=== PATIENT | female | born 1935 | race Caucasian/White ===

== ENCOUNTER → 2016-06-23 | Outpatient (CLI) | payer BC, OTHER ==
[~2016-06-23] MED LIST: ASPCH81; CEPH500C PO; LSN25 PO; NVLGI7030 SC; TRAM-10 PO
[2016-06-23 17:22] LABS: HEMATOCRIT 38.6 % (37-47); MEAN CORPUSCULAR HEMOGLOBIN 30.2 pg (25-34); MEAN CORPUSCULAR HGB CONC 33.2 g/dl (32-36); MEAN PLATELET VOLUME 10.2 fL (7.4-10.4); PLATELET COUNT 195 K/uL (130-400); RED BLOOD COUNT 4.24 M/uL (4.2-5.4); WHITE BLOOD COUNT 5.49 K/uL (4.8-10.8)
[2016-06-23 18:08] LABS: ALT/SGPT 15 U/L (12-78); AST/SGOT 9 U/L (15-37); BLOOD UREA NITROGEN 27 mg/dl (7-18); BUN/CREATININE RATIO 22.9 (10-20); CARBON DIOXIDE 30 mmol/L (21-32); CHLORIDE 105 mmol/L (98-107); CHOLESTEROL 174 mg/dl (0-200); CHOLESTEROL/HDL RATIO 2.9; GLUCOSE 209 mg/dl (70-99); HDL CHOLESTEROL 60 mg/dl; POTASSIUM 4.6 mmol/L (3.5-5.1); SODIUM 142 mmol/L (136-145)
[2016-06-23 18:09] LABS: ALB/GLOB RATIO 0.9 (0.9-2); ALKALINE PHOSPHATASE 80 U/L (45-117); LDL CHOLESTEROL CALCULATED 92 mg/dl; TRIGLYCERIDES 111 mg/dl (0-150); VERY LOW DENSITY LIPOPROT CALC 22 mg/dl
[2016-06-24 06:38] LABS: ESTIMATED AVERAGE GLUCOSE 151 mg/dl; HA1C FLAG Normal (Normal)
== END | disposition home or self-care (01) ==
LOC: C.LABBFT 15:44
PROVIDERS: ATTEND Internal Medicine
DX: E11.42 Type 2 diabetes mellitus with diabetic polyneuropathy (principal)

== ENCOUNTER → 2017-01-20 | Outpatient (CLI) | payer OTHER ==
[2017-01-20 15:39] LABS: BASO % 0.2 %; BASO ABS # 0.01 K/uL (0-0.2); COMPLETE YES; EOS % 1.4 %; HEMATOCRIT 38.2 % (37-47); IG% 0.4 %; LYMPH % 13.5 %; LYMPH ABS # 0.76 K/uL (1.2-3.4); MEAN CELL VOLUME 92.9 fL (80-100); MEAN CORPUSCULAR HEMOGLOBIN 31.4 pg (25-34); MEAN CORPUSCULAR HGB CONC 33.8 g/dl (32-36); MEAN PLATELET VOLUME 10.4 fL (7.4-10.4); MONO % 9.6 %; NEUT % 74.9 %; PLATELET COUNT 153 K/uL (130-400); RED BLOOD COUNT 4.11 M/uL (4.2-5.4); WHITE BLOOD COUNT 5.64 K/uL (4.8-10.8)
[2017-01-20 15:53] LABS: ALT/SGPT 15 U/L (12-78); BLOOD UREA NITROGEN 39 mg/dl (7-18); BUN/CREATININE RATIO 27.5 (10-20); CALCIUM 9.5 mg/dl (8.5-10.1); CARBON DIOXIDE 30 mmol/L (21-32); CHLORIDE 100 mmol/L (98-107); CHOLESTEROL 163 mg/dl (0-200); GLUCOSE 335 mg/dl (70-99); POTASSIUM 4.8 mmol/L (3.5-5.1); SODIUM 135 mmol/L (136-145)
[2017-01-20 15:55] LABS: ALB/GLOB RATIO 0.9 (0.9-2); AST/SGOT 11 U/L (15-37); TRIGLYCERIDES 122 mg/dl (0-150); VERY LOW DENSITY LIPOPROT CALC 24 mg/dl
[2017-01-20 16:03] LABS: ALKALINE PHOSPHATASE 69 U/L (45-117); BETA-HYDROXYBUTYRATE 0.88 mg/dL (0.2-2.81); CHOLESTEROL/HDL RATIO 2.3; HDL CHOLESTEROL 72 mg/dl; LDL CHOLESTEROL CALCULATED 67 mg/dl
[2017-01-21 06:14] LABS: ESTIMATED AVERAGE GLUCOSE 154 mg/dl; HA1C FLAG Normal (Normal)
== END | disposition home or self-care (01) ==
LOC: C.LAB1850 14:39
PROVIDERS: ATTEND Internal Medicine
DX: E11.42 Type 2 diabetes mellitus with diabetic polyneuropathy (principal)

== ENCOUNTER → 2017-07-10 | Outpatient (CLI) | payer OTHER ==
[2017-07-10 17:01] LABS: ALBUMIN 3.2 gm/dl (3.4-5.0); ALT/SGPT 15 U/L (12-78); AST/SGOT 12 U/L (15-37); BLOOD UREA NITROGEN 32 mg/dl (7-18); CALCIUM 9.6 mg/dl (8.5-10.1); CARBON DIOXIDE 29 mmol/L (21-32); CREATININE 1.32 mg/dl (0.60-1.20); GLUCOSE 142 mg/dl (70-99); POTASSIUM 5.4 mmol/L (3.5-5.1); SODIUM 140 mmol/L (136-145)
[2017-07-10 17:12] LABS: ALKALINE PHOSPHATASE 62 U/L (45-117); TOTAL PROTEIN 6.9 gm/dl (6.4-8.2)
[2017-07-11 06:56] LABS: HEMOGLOBIN A1C 7.9 % (4.5-5.6)
== END | disposition home or self-care (01) ==
LOC: C.LABBFT 12:26
PROVIDERS: ATTEND Internal Medicine
DX: E11.42 Type 2 diabetes mellitus with diabetic polyneuropathy (principal)

== ENCOUNTER → 2017-12-11 | Outpatient (CLI) | payer OTHER ==
[2017-12-11 17:46] LABS: BASO % 0.3 %; BASO ABS # 0.02 K/uL (0-0.2); EOS % 3.1 %; HEMATOCRIT 39.5 % (37-47); HEMOGLOBIN 12.6 g/dL (12.0-16.0); IG# 0.02 K/uL (0.00-0.02); LYMPH % 12.1 %; LYMPH ABS # 0.77 K/uL (1.2-3.4); MEAN CELL VOLUME 93.4 fL (80-100); MEAN CORPUSCULAR HEMOGLOBIN 29.8 pg (25-34); MEAN CORPUSCULAR HGB CONC 31.9 g/dl (32-36); MONO % 7.7 %; MONO ABS # 0.49 K/uL (0.11-0.59); NEUT % 76.5 %; NEUT ABS # 4.86 K/uL (1.4-6.5); PLATELET COUNT 181 K/uL (130-400); RED CELL DISTRIBUTION WIDTH CV 13.6 % (11.5-14.5); RED CELL DISTRIBUTION WIDTH SD 46.3 fL (36.4-46.3); WHITE BLOOD COUNT 6.36 K/uL (4.8-10.8)
[2017-12-11 18:07] LABS: ALBUMIN 3.2 gm/dl (3.4-5.0); ALKALINE PHOSPHATASE 71 U/L (45-117); ALT/SGPT 15 U/L (12-78); AST/SGOT 11 U/L (15-37); BLOOD UREA NITROGEN 29 mg/dl (7-18); CALCIUM 9.2 mg/dl (8.5-10.1); CARBON DIOXIDE 29 mmol/L (21-32); CREATININE 1.41 mg/dl (0.60-1.20); GLUCOSE 151 mg/dl (70-99); POTASSIUM 4.9 mmol/L (3.5-5.1); SODIUM 141 mmol/L (136-145); TOTAL PROTEIN 7.2 gm/dl (6.4-8.2)
[2017-12-12 07:45] LABS: HEMOGLOBIN A1C 7.3 % (4.5-5.6)
== END | disposition home or self-care (01) ==
LOC: C.LABBFT 12:04
PROVIDERS: ATTEND Nurse Practitioner
DX: E10.49 Type 1 diabetes mellitus with other diabetic neurological complication (principal); R60.9 Edema, unspecified

== ENCOUNTER 2019-02-28 21:09 | Observation (INO) ==
[2019-02-28] MEDS ORDERED: SODIUM CHLORIDE 0.9% 500 ML IV SCH (22:00)
[2019-02-28 22:04] LABS: Basophils # (auto) 0.01 K/uL (0-0.2); Basophils % (auto) 0.1 %; Eosinophils # (auto) 0.01 K/uL (0-0.5); Eosinophils % (auto) 0.1 %; Hematocrit (blood only) 35.8 % (37-47); Hemoglobin 12.1 g/dL (12.0-16.0); Immature Granulocytes # (auto) 0.02 K/uL (0.00-0.02); Immature Granulocytes % (auto) 0.2 %; Mean Corpuscular Hgb Conc 33.8 g/dL (32-36); Mean Corpuscular Volume 88.8 fL (80-100); Mean Platelet Volume 11.4 fL (7.4-10.4); Monocytes # (auto) 0.69 K/uL (0.11-0.59); Monocytes % (auto) 8.3 %; Neutrophils # (auto) 7.06 K/uL (1.4-6.5); Neutrophils % (auto) 85.3 %; Platelet Count 147 K/uL (130-400); RDW Coefficient of Variation 13.6 % (11.5-14.5); RDW Standard Deviation 44.1 fL (36.4-46.3); Red Blood Count 4.03 M/uL (4.2-5.4); White Blood Count 8.29 K/uL (4.8-10.8)
--- NOTE | 2019-02-28 22:07 | XRay Report ---
XR chest 1V portable CLINICAL HISTORY: 83 years-old Female presenting with weakness. TECHNIQUE: Portable upright AP view of the chest was obtained. COMPARISON: 08/11/2018. FINDINGS: Atherosclerosis of the aortic arch. Cardiac silhouette enlarged. Mildly low lung volumes. Persistent nodular opacity at the right lung base. No new focal opacity. No large effusion or pneumothorax. Defo rmity of the left humerus on a chronic basis is posttraumatic and possibly also secondarily degenerat panda. Posttraumatic deformity with internal fixation of the right humerus. Upper abdomen normal. IMPRESSION: 1. Cardiomegaly. 2. Persistent nodular opacity at the right lung base. Follow-up PA and lateral views recommended as on prior exam. 3. Mildly low lung volumes. No other convincing evidence of acute cardiopulmonary disease. Electronically signed by: Bassam Benedict M.D. 02/28/2019 10:06 PM
--- NOTE | 2019-02-28 22:11 | Emergency Department Note ---
ED Visit Note I have seen and examined this patient with Laura Roque and generally agree with the treatment plan as discussed. .
[2019-02-28 22:18] LABS: iSTAT Creatinine 2.1 mg/dl (0.6-1.3); iSTAT Hemoglobin 13.3 g/dl (12.0-16.0); iSTAT Ionized Calcium 1.17 mmol/l (1.12-1.32); iSTAT Potassium 4.4 mEq/L (3.3-5.0)
[2019-02-28 22:21] LABS: Alanine Aminotransferase 16 U/L (12-78); Albumin Level 3.2 gm/dl (3.4-5.0); Aspartate Aminotransferase 14 U/L (15-37); BUN Creatinine Ratio 19.1 (10-20); Blood Urea Nitrogen 41 mg/dl (7-18); Calcium 9.4 mg/dl (8.5-10.1); Carbon Dioxide 28 mmol/L (21-32); Chloride 94 mmol/L (98-107); Creatinine Clr Calc Pharmacy 20.4 ml/min; Est GFR (African American) 23.6; Est GFR (Non-African American) 20.4; Glucose 163 mg/dl (70-99); Magnesium 1.7 mg/dl (1.8-2.4); Potassium 4.3 mmol/L (3.5-5.1); Sodium 130 mmol/L (136-145)
[2019-02-28 22:32] LABS: Albumin Globulin Ratio 0.8 (0.9-2); Alkaline Phosphatase 64 U/L (45-117); Globulin 4.1 gm/dl (2.5-4.0); Total Protein 7.3 gm/dl (6.4-8.2); Troponin I < 0.015 ng/ml (0-0.045)
--- NOTE | 2019-02-28 22:41 | CT Scan Report ---
CT head/brain wo con CLINICAL HISTORY: 83 years-old Female presenting with fall, head/R face injury on ASA. TECHNIQUE: Multidetector CT imaging of the head was performed without the use of intravenous contrast . IV contrast: None. One or more dose lowering techniques were used consistent with the principles of ALARA (as low as reasonably achievable), including automatic exposure control, mA or kV adjustment t o individual patient size, and/or use of iterative reconstruction. COMPARISON: 08/11/2018. CT DOSE (mGy.cm): The estimated cumulative dose is 2102.16. 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 Proportional ventricular and sulcal prominence, likely age-related parenchymal volume loss. No hemorr orlin. Periventricular and subcortical white matter hypoattenuation, nonspecific but likely indicative of chronic small vessel ischemic change. No acute territorial infarct. No mass effect or midline javon ft. No extra-axial fluid collection. Paranasal sinuses and mastoid air cells clear. Calvarium intact. IMPRESSION: 1. Chronic small vessel ischemic change. No acute intracranial abnormality. Electronically signed by: Bassam Benedict M.D. 02/28/2019 10:40 PM
--- NOTE | 2019-02-28 22:48 | CT Scan Report ---
CT cervical spine wo con CLINICAL HISTORY: 83 years-old Female presenting with fall, head/R face injury on ASA. TECHNIQUE: Multidetector CT of the cervical spine was performed without the use of intravenous contra st. IV contrast: None. One or more dose lowering techniques were used consistent with the principles of ALARA (as low as reasonably achievable), including automatic exposure control, mA or kV adjustment to individual patient size, and/or use of iterative reconstruction. COMPARISON: None. CT DOSE (mGy.cm): The estimated cumulative dose is 2102.16. 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 The extent of degenerative change throughout the cervical spine X assessment difficult. Heterogeneity of bone marrow with heterogeneous sclerosis may relate to degenerative change or an underlying marro w replacement process. There is osseous fusion across the C2-3 level as well as involving osseous fus ion across the posterior elements of these levels. Overall lordosis is preserved. Slight anterolisthe sis of C3 on C4 and retrolisthesis of C4 on C5, most likely degenerative in etiology. Multilevel inte rvertebral disc height loss to varying degrees. Osseous spinal canal narrowing at C4 as result of ret rolisthesis. Varying degrees of osseous neural foraminal narrowing. Allowing for the degree of change , no acute osseous injury is apparent. Visualized portion of the skull base intact. IMPRESSION: 1. Extensive multilevel degenerative changes and bone marrow changes. Presumably bone marrow changes are degenerative in etiology or, less likely, related to a marrow replacement process. The degree of degenerative change makes assessment for acute osseous injury more limited. 2. Allowing for this, no evidence of acute osseous injury of the cervical spine. Electronically signed by: Bassam Benedict M.D. 02/28/2019 10:47 PM
--- NOTE | 2019-02-28 22:54 | CT Scan Report ---
CT abd pelvis wo con CLINICAL HISTORY: 83 years-old Female presenting with generalized abdominal pain, fall with right-bev ed facial injury, pain. TECHNIQUE: Multidetector CT of the abdomen and pelvis was performed without the use of intravenous co ntrast. IV contrast: None. One or more dose lowering techniques were used consistent with the princip les of PENNY (as low as reasonably achievable), including automatic exposure control, mA or kV adjust ment to individual patient size, and/or use of iterative reconstruction. COMPARISON: None. CT DOSE (mGy.cm): The estimated cumulative dose is 2102.16 mGy.cm. 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 Lung bases: Multichamber enlargement of the heart. Coronary artery calcification. No pericardial or p leural effusion. Minimal dependent changes likely atelectasis. Liver: Normal morphology. Normal density. Biliary: No gross biliary ductal dilatation allowing for noncontrast technique. Gallstones at the gal lbladder fundus. The gallbladder may be physiologically distended. Wall thickening may be present. Tr timothy fluid at the gallbladder fundus. It is difficult to tell if this is emanating from the gallbladde r or is merely adjacent to the gallbladder. Pancreas: Severe parenchymal atrophy. Spleen: Normal noncontrast appearance. Adrenal glands: Nonspecific thickening of the adrenal glands and Kidneys and ureters: Normal noncontrast appearance. No nephrolithiasis. No hydronephrosis. Normal ure ters. Bladder: Normal noncontrast appearance. Pelvic organs: Normal noncontrast appearance. Bowel: Diverticulosis of the mid sigmoid colon without wall thickening or pericolonic inflammatory ch nhung. A significant portion of the transverse colon is contained within the large ventral hernia. The appendix is normal. No bowel obstruction. Large predominantly sliding type hiatal hernia. Peritoneal cavity: Trace free fluid in the right paracolic gutter. No free intraperitoneal gas or ext raluminal gas. No pneumatosis. Lymph nodes: No gross lymphadenopathy allowing for noncontrast technique. Vasculature: Atherosclerosis of the normal caliber abdominal aorta. Abdominal wall: Large ventral hernia in the region of the umbilicus with a relatively narrow neck sara suring 4.7 cm in comparison to the hernia sac diameter, which measures 14.7 cm. No infiltration of th e hernia sac. Musculoskeletal: Degenerative changes of the spine. Partially visualized internal fixation of the rig ht humerus. Posttraumatic deformities in the pelvis. Moderate compression deformity at T11, which is age indeterminate. IMPRESSION: 1. Large ventral hernia in the umbilical/periumbilical region containing a significant portion of tr ansverse colon. No bowel obstruction or evidence of strangulation. 2. Distended gallbladder containing gallstones with adjacent pericholecystic fluid. Gallbladder wall thickening cannot be excluded. Right upper quadrant ultrasound is recommended for further assessment as these findings raise concern for cholecystitis. 3. Age-indeterminate compression deformity of T11. Correlate with point tenderness. The report will be called/faxed according to standard departmental protocol. Electronically signed by: Bassam Benedict M.D. 02/28/2019 10:53 PM
--- NOTE | 2019-02-28 22:56 | CT Scan Report ---
CT facial bones wo con CLINICAL HISTORY: 83 years-old Female presenting with fall, head/R face injury on ASA. TECHNIQUE: Multidetector CT of the face was performed without the use of intravenous contrast. IV con trast: None. One or more dose lowering techniques were used consistent with the principles of ALARA ( as low as reasonably achievable), including automatic exposure control, mA or kV adjustment to indivi dual patient size, and/or use of iterative reconstruction. COMPARISON: None. CT DOSE (mGy.cm): The estimated cumulative dose is 2102.16. 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 The patient is edentulous. Superficial soft tissues of the face do not demonstrate asymmetry or focal swelling. No superficial soft tissue hematoma. Rincon lenses are absent from the globes. Orbits othe rwise normal. Age-related parenchymal volume loss of the brain. Paranasal sinuses with mild polypoid mucosal thickening in the inferior left maxillary sinus but are otherwise clear. Zygomatic processes intact. Temporomandibular joints and mandible intact. Upper cervical spine intact. IMPRESSION: 1. No acute osseous injury of the face. Electronically signed by: Bassam Benedict M.D. 02/28/2019 10:55 PM
[2019-02-28 23:56] LABS: Appearance Urine Clear (Clear); Blood Urine Negative (Negative); Color Urine Dark Yellow; Glucose Urine UA Negative (Negative); Ketones Urine Trace (Negative); Leukocyte Esterase Urine Negative (Negative); Nitrite Urine Negative (Negative); Protein Urine Negative (Negative); Specific Gravity Urine 1.023 (1.000-1.030); Urobilinogen Urine Negative (Negative)
[2019-03-01] MEDS ORDERED: PIPERACILLIN/TAZOBACTAM 4.5 GM/120 ML BAG IV ONE (00:01)
[2019-03-01] MEDS ORDERED: PIPERACILL/TAZOBAC CONSULT ACTIVE PRN ×2 (00:01→03:09)
[2019-03-01 00:16] LABS: Bilirubin Urine 1+ (Negative)
[2019-03-01 00:17] LABS: Ictotest Urine Positive (Negative)
--- NOTE | 2019-03-01 00:44 | Surgery Consultation ---
Date of Consultation March 01, 2019 Assessment & Plan (1) Acute cholecystitis: Without taking into consideration the large hernia-laparoscopic cholecystectomy in this situation with the findings on CAT scan Will be very difficult, may lead to open operation-then may need to consider attempting to repair the hernia. Cholecystostomy tube may be best in this situation. The ER has spoken with the doctors at [facility] and they are willing to take the patient but have other patients front of her. I feel transfer to a tertiary care center is in the best interest of this patient I will set to go to [facility] bed is available History of Present Illness History of Present Illness Asked to see the patient in the emergency room with acute cholecystitis She was brought to the emergency room after falling at home sustaining a facial injury which is apparently a contusion She has had recent nausea and vomiting some abdominal pain-CAT scan and ultrasound showed dilated thickened gallbladder With large stone and likely pericholecystic fluid She also has a very large hernia with colon within the hernia She has a history of mild dementia 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 Allergies Allergy/AdvReac Type Severity Reaction Status Date / Time No Known Allergies Allergy Unknown Verified 02/28/19 23:53 Home Medications Home Medications Medication Instructions Recorded Confirmed Type aspirin 81 mg PO QAM 08/11/18 02/28/19 History cholecalciferol (vitamin D3) 2,000 units PO QAM 08/11/18 02/28/19 History [Vitamin D3] insulin human U-100 NPH-regulr 1 sliding scale dose SUBCUT 11/22/18 02/28/19 Rx 70-30 mix 100 unit/mL subcutaneous USEASDIRECTD #40 ml susp omeprazole 20 mg capsule,delayed 20 mg PO QAM #90 cap 11/22/18 02/28/19 Rx release lorazepam 0.5 mg tablet 0.5 mg PO DAILY #30 tab 12/03/18 02/28/19 Rx alendronate 70 mg tablet 70 mg PO .COMPLEX #4 tab 01/19/19 02/28/19 Rx donepezil 5 mg tablet 5 mg PO HS #30 tab 02/07/19 02/28/19 Rx calcium carbonate [Calcium 600] 600 mg PO QAM 02/28/19 02/28/19 History Patient History Social History Preferred Language: [place]al[place] Current Living Situation: Family Feels Safe at Home: Yes Smoking Status: Former smoker Review of Systems Review of Systems: All systems reviewed & are unremarkable except as noted in HPI & below Physical Exam Physical Exam: Patient has a right periorbital contusion, she is awake and alert , her vital signs are stable She has a large umbilical hernia with chronic skin changes overlying the hernia and no ulceration She does have right upper quadrant tenderness to deep palpation Results & Data Vital Signs (Past 12 Hours) Vital Signs Temp Pulse Resp BP Pulse Ox 03/01/19 00:30 64 27 H 03/01/19 00:01 64 34 H 125/50 L 03/01/19 00:00 64 32 H 02/28/19 23:43 27 H 02/28/19 23:00 72 25 H 131/78 94 02/28/19 21:11 36.6 C 75 18 112/68 94 I did review her CAT scan PG Care Time/CCT Total # of Minutes Spent Total Time Spent with Patient: Total time spent is greater than 50% in coordination of care (as documented) at patient's floor/unit and/or counseling patient:
--- NOTE | 2019-03-01 02:00 | History & Physical Report ---
Date of Service March 01, 2019 Assessment & Plan (1) Acute cholecystitis: Acute cholecystitis with large ventral hernia- Concern by general surgery consult for possible need for a laparoscopic cholecystectomy to be converted to open cholecystectomy and need for repair of ventral hernia. For these reasons, patient has been accepted in transfer to [facility] in [place], however, no beds are currently available. Patient will be admitted to [facility] in the interim, placed on Zosyn 4.5 g IV every 12 hours, Zofran 4 mg IV every 6 hours as needed, famotidine 20 mg IV every 12 hours. Hold aspirin 81 mg every morning. NPO except ice chips. Present on Admission?: Yes (2) Ventral hernia: See above Present on Admission?: Yes (3) Acute kidney injury superimposed on CKD: Creatinine 2.17 upon admission, with range 1.32-1.54. Magnesium level of 1.7 will be repleted with IV Rehydrate with normal saline at 80 mls per hour, and follow serial BMP and magnesium levels Present on Admission?: Yes (4) Contusion of face: Facial contusion and ecchymosis around right eye. CT of head and face without significant structural injury. Present on Admission?: Yes (5) Insulin-requiring or dependent type II diabetes mellitus: Insulin requiring diabetes mellitus type 2/diabetic neuropathy/diabetic retinopathy- Hold 70/30 mix sliding scale dosing as outpatient. Place on Accu-Cheks every 6 hours with NovoLog coverage. Check hemoglobin A1c Present on Admission?: Yes (6) Type 2 diabetes mellitus with diabetic neuropathy: See above Present on Admission?: Yes (7) Type 2 diabetes mellitus with retinopathy: See above Present on Admission?: Yes (8) GERD (gastroesophageal reflux disease): Change omeprazole to famotidine 20 mg IV every 12 hours. Present on Admission?: Yes (9) Dementia: Hold donepezil 5 mg p.o. at bedtime, while NPO Present on Admission?: Yes (10) Anxiety: Change lorazepam from 0.5 mg p.o. daily as needed to IV twice daily as needed. Present on Admission?: Yes (11) Closed fracture of T11 vertebra: Noted as age-indeterminate on CT, however, patient with no point tenderness. Present symptoms may be masked by more significant abdominal symptoms, so we will closely follow clinical examination. Present on Admission?: Yes (12) Osteoporosis: On Fosamax in the outpatient setting. Present on Admission?: Yes History of Present Illness Chief Complaint: The patient is brought to the emergency department with complaint of persistent abdominal pain with nausea and vomiting over the past 2 days. Primary Care Provider: Jair Wren MD The patient is an 83-year-old female with a past medical history including insulin requiring diabetes mellitus, osteoporosis, dementia, GERD and anxiety, who presents to the emergency department with 2 days of worsening abdominal pain, nausea and vomiting. She is also had progressive weakness, and did have a fall today, without any associated injury. Her oral intake has been decreased during this time as well. Allergies Allergy/AdvReac Type Severity Reaction Status Date / Time No Known Allergies Allergy Unknown Verified 02/28/19 23:53 Home Medications Home Medications Medication Instructions Recorded Confirmed Type aspirin 81 mg PO QAM 08/11/18 02/28/19 History cholecalciferol (vitamin D3) 2,000 units PO QAM 08/11/18 02/28/19 History [Vitamin D3] insulin human U-100 NPH-regulr 1 sliding scale dose SUBCUT 11/22/18 02/28/19 Rx 70-30 mix 100 unit/mL subcutaneous USEASDIRECTD #40 ml susp omeprazole 20 mg capsule,delayed 20 mg PO QAM #90 cap 11/22/18 02/28/19 Rx release lorazepam 0.5 mg tablet 0.5 mg PO DAILY #30 tab 12/03/18 02/28/19 Rx alendronate 70 mg tablet 70 mg PO .COMPLEX #4 tab 01/19/19 02/28/19 Rx donepezil 5 mg tablet 5 mg PO HS #30 tab 02/07/19 02/28/19 Rx calcium carbonate [Calcium 600] 600 mg PO QAM 02/28/19 02/28/19 History Past Med/Surg History Medical History Diabetes (Chronic) Dementia (Chronic) Social History Preferred Language: Macedonian 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: No Beliefs That Will Affect Care: None Current Living Situation: Family Current Living Situation Comment: son Feels Safe at Home: Yes Safety Concerns: Feels Safe At This Time Smoking Status: Never smoker Tobacco Type: cigarettes ; Hx Alcohol Use: No Hx Substance Use: No Review of Systems Review of Systems: The patient denies chest pain, palpitations, shortness of breath, dyspnea on exertion, cough, lower extremity swelling, sore throat, fevers, chills, sweats, blood in urine or stool, dysuria, urinary frequency or urgency, lightheadedness, dizziness, headache, loss of consciousness, rash, abnormal bruising or bleeding, imbalance, focal or weakness, numbness or tingling in arms or legs, generalized arthralgias or myalgias, back or neck pain, or night sweats. The review of systems is otherwise negative other than for that already noted above, and at least 10 systems have been reviewed. Physical Exam Physical Exam: The patient is awake, alert and oriented 3, ecchymosis around right eye, lying in bed and in intermittent acute distress secondary to abdominal pain. HEENT--PERRL, EOMI, mucous membranes and oropharynx dry. Neck--supple. No JVD. No bruits. Thyroid normal, trachea midline, no adenopathy. Heart--normal S1 and S2. No murmurs, rubs or gallops. Lungs--clear bilaterally, no respiratory distress, no accessory muscle use. Abdomen--normal bowel sounds and soft. Tender right upper quadrant and epigastrium. Nondistended. Extremities--no cyanosis or clubbing. No edema. There are good distal pulses b/l. Dermatologic--as noted above. Neurologic--cranial nerves II through XII grossly intact. Rheumatologic-limited exam. Psychiatric--normal affect. Results & Data Vital Signs (Past 12 Hours) Vital Signs Temp Pulse Resp BP Pulse Ox 03/01/19 00:30 64 27 H 03/01/19 00:01 64 34 H 125/50 L 03/01/19 00:00 64 32 H 02/28/19 23:43 27 H 02/28/19 23:00 72 25 H 131/78 94 02/28/19 21:11 97.9 F 75 18 112/68 94 Laboratory Results Laboratory Results WBC 8.29 K/uL (4.8-10.8) 02/28/19 21:53 RBC 4.03 M/uL (4.2-5.4) L 02/28/19 21:53 Hgb 12.1 g/dL (12.0-16.0) 02/28/19 21:53 POC Hgb 13.3 g/dl (12.0-16.0) 02/28/19 22:01 Hct 35.8 % (37-47) L 02/28/19 21:53 POC Hct 39 % (37-47) 02/28/19 22:01 MCV 88.8 fL (80-100) 02/28/19 21:53 MCH 30.0 pg (25-34) 02/28/19 21:53 MCHC 33.8 g/dL (32-36) 02/28/19 21:53 RDW Std Deviation 44.1 fL (36.4-46.3) 02/28/19 21:53 RDW Coeff of Luis E 13.6 % (11.5-14.5) 02/28/19 21:53 Plt Count 147 K/uL (130-400) 02/28/19 21:53 MPV 11.4 fL (7.4-10.4) H 02/28/19 21:53 Immature Gran % (Auto) 0.2 % 02/28/19 21:53 Neut % (Auto) 85.3 % 02/28/19 21:53 Lymph % (Auto) 6.0 % 02/28/19 21:53 Hardin % (Auto) 8.3 % 02/28/19 21:53 Eos % (Auto) 0.1 % 02/28/19 21:53 Baso % (Auto) 0.1 % 02/28/19 21:53 Immature Gran # (Auto) 0.02 K/uL (0.00-0.02) 02/28/19 21:53 Neut # (Auto) 7.06 K/uL (1.4-6.5) H 02/28/19 21:53 Lymph # (Auto) 0.50 K/uL (1.2-3.4) L 02/28/19 21:53 Hardin # (Auto) 0.69 K/uL (0.11-0.59) H 02/28/19 21:53 Eos # (Auto) 0.01 K/uL (0-0.5) 02/28/19 21:53 Baso # (Auto) 0.01 K/uL (0-0.2) 02/28/19 21:53 POC Sodium 130 mEq/L (135-144) L 02/28/19 22:01 Sodium 130 mmol/L (136-145) L 02/28/19 21:53 POC Potassium 4.4 mEq/L (3.3-5.0) 02/28/19 22:01 Potassium 4.3 mmol/L (3.5-5.1) 02/28/19 21:53 POC Chloride 93 mEq/L (101-112) L 02/28/19 22:01 Chloride 94 mmol/L (98-107) L 02/28/19 21:53 Carbon Dioxide 28 mmol/L (21-32) 02/28/19 21:53 POC Total CO2 28 mEq/l (24-31) 02/28/19 22:01 Anion Gap 7.0 (3-11) 02/28/19 21:53 POC Anion Gap 15.0 mmol/L (16-25) L 02/28/19 22:01 POC BUN 39 mg/dl (7-18) H 02/28/19 22:01 BUN 41 mg/dl (7-18) H 02/28/19 21:53 Creatinine 2.17 mg/dl (0.6-1.2) H 02/28/19 21:53 POC Creatinine 2.1 mg/dl (0.6-1.3) H 02/28/19 22:01 Est Cr Clr Drug Dosing 20.4 ml/min 02/28/19 21:53 Est GFR ( Amer) 23.6 02/28/19 21:53 Est GFR (Non-Af Amer) 20.4 02/28/19 21:53 BUN/Creatinine Ratio 19.1 (10-20) 02/28/19 21:53 Glucose 163 mg/dl (70-99) H 02/28/19 21:53 POC Glucose 133 (70-99) H 03/01/19 05:15 POC Glucose (other) 162 mg/dl (70-99) H 02/28/19 22:01 Calcium 9.4 mg/dl (8.5-10.1) 02/28/19 21:53 POC Ioniz Calcium Maylin 1.17 mmol/l (1.12-1.32) 02/28/19 22:01 Magnesium 1.7 mg/dl (1.8-2.4) L 02/28/19 21:53 Total Bilirubin 1.0 mg/dl (0.2-1) 02/28/19 21:53 AST 14 U/L (15-37) L 02/28/19 21:53 ALT 16 U/L (12-78) 02/28/19 21:53 Alkaline Phosphatase 64 U/L (45-117) 02/28/19 21:53 Troponin I < 0.015 ng/ml (0-0.045) 02/28/19 21:53 Total Protein 7.3 gm/dl (6.4-8.2) 02/28/19 21:53 Albumin 3.2 gm/dl (3.4-5.0) L 02/28/19 21:53 Globulin 4.1 gm/dl (2.5-4.0) H 02/28/19 21:53 Albumin/Globulin Ratio 0.8 (0.9-2) L 02/28/19 21:53 TSH 3.530 uIu/ml (0.300-4.500) 02/28/19 21:53 Urine Color Dark Yellow 02/28/19 22:50 Urine Appearance Clear (Clear) 02/28/19 22:50 Urine pH 5.0 (4.5-7.5) 02/28/19 22:50 Ur Specific [place] 1.023 (1.000-1.030) 02/28/19 22:50 Urine Protein Negative (Negative) 02/28/19 22:50 Urine Glucose (UA) Negative (Negative) 02/28/19 22:50 Urine Ketones Trace (Negative) H 02/28/19 22:50 Urine Blood Negative (Negative) 02/28/19 22:50 Urine Nitrite Negative (Negative) 02/28/19 22:50 Urine Bilirubin 1+ (Negative) H 02/28/19 22:50 Urine Urobilinogen Negative (Negative) 02/28/19 22:50 Ur Leukocyte Esterase Negative (Negative) 02/28/19 22:[address] [place], [place] [phone] CT Scan Report Patient: IRA SHEEHAN Date: 02/28/19 MR#: [id number]: [facility] JACLYN MOLLY Acct ID:[id number]: Date: 1935[facility] Zip: [place] [address] Age: 83Location: ED Sex: F Room/Bed: Att Phy:Diagnosis: FALL/PAIN RT HIP Shabnam Phy: Jair Wren III, MDService Date: 02/28/19 Fam Phy:Interpreting Phy: Bassam Benedict MD Admit Phy: Ordering Phy: Laura Roque ., NELY cc: ~ CT head/brain wo con CLINICAL HISTORY: 83 years-old Female presenting with fall, head/R face injury on ASA. TECHNIQUE: Multidetector CT imaging of the head was performed without the use of intravenous contrast. IV contrast: None. One or more dose lowering techniques were used consistent with the principles of ALARA (as low as reasonably achievable), including automatic exposure control, mA or kV adjustment to individual patient size, and/or use of iterative reconstruction. COMPARISON: 08/11/2018. CT DOSE (mGy.cm): The estimated cumulative dose is 2102.16. FINDINGS: Warp Drawer topogram: Internal fixation of the right humerus. Proportional ventricular and sulcal prominence, likely age-related parenchymal volume loss. No hemorrhage. Periventricular and subcortical white matter hypoattenuation, nonspecific but likely indicative of chronic small vessel ischemic change. No acute territorial infarct. No mass effect or midline shift. No extra-axial fluid collection. Paranasal sinuses and mastoid air cells clear. Calvarium intact. IMPRESSION: 1. Chronic small vessel ischemic change. No acute intracranial abnormality. Electronically signed by: Bassam Benedict M.D. 02/28/2019 10:40 PM Dictated: 02/28/192237 Transcribed: 02/28/192237 [facility], [place] [phone] CT Scan Report Patient: IRA SHEEHAN Date: 02/28/19 MR#: [id number]: Matilde BARNES Acct ID:[id number]: Date: 1935[facility] Zip: [place] [address] Age: 83Location: ED Sex: F Room/Bed: Att Phy:Diagnosis: FALL/PAIN RT HIP Shabnam Phy: Siena, Jair A., III, MDService Date: 02/28/19 Fam Phy:Interpreting Phy: Bassam Benedict MD Admit Phy: Ordering Phy: Laura Roque PA-C cc: ~ CT facial bones wo con CLINICAL HISTORY: 83 years-old Female presenting with fall, head/R face injury on ASA. TECHNIQUE: Multidetector CT of the face was performed without the use of intravenous contrast. IV contrast: None. One or more dose lowering techniques were used consistent with the principles of ALARA (as low as reasonably achievable), including automatic exposure control, mA or kV adjustment to individual patient size, and/or use of iterative reconstruction. COMPARISON: None. CT DOSE (mGy.cm): The estimated cumulative dose is 2102.16. FINDINGS: Warp Drawer topogram: Internal fixation of the right humerus. The patient is edentulous. Superficial soft tissues of the face do not demonstrate asymmetry or focal swelling. No superficial soft tissue hematoma. [place] lenses are absent from the globes. Orbits otherwise normal. Age-related parenchymal volume loss of the brain. Paranasal sinuses with mild polypoid mucosal thickening in the inferior left maxillary sinus but are otherwise clear. Zygomatic processes intact. Temporomandibular joints and mandible intact. Upper cervical spine intact. IMPRESSION: 1. No acute osseous injury of the face. Electronically signed by: Bassam Benedict M.D. 02/28/2019 10:55 PM Dictated: 02/28/192252 Transcribed: 02/28/192252 [place], [place] [phone] XRay Report Patient: IRA SHEEHAN Date: 02/28/19 MR#: [id number]: [facility] Acct ID:[id number]: Date: [address] [place] [address] Zip: [place] [address] Age: 83Location: ED Sex: F Room/Bed: Att Phy:Diagnosis: FALL/PAIN RT HIP Shabnam Phy: Jair Wren, III, MDService Date: 02/28/19 [facility] Phy:Interpreting Phy: Bassam Benedict MD Admit Phy: Ordering Phy: Jude, Laura ., PA-C cc: ~ XR chest 1V portable CLINICAL HISTORY: 83 years-old Female presenting with weakness. TECHNIQUE: Portable upright AP view of the chest was obtained. COMPARISON: 08/11/2018. FINDINGS: Atherosclerosis of the aortic arch. Cardiac silhouette enlarged. Mildly low lung volumes. Persistent nodular opacity at the right lung base. No new focal opacity. No large effusion or pneumothorax. Deformity of the left humerus on a chronic basis is posttraumatic and possibly also secondarily degenerative. Posttraumatic deformity with internal fixation of the right humerus. Upper abdomen normal. IMPRESSION: 1. Cardiomegaly. 2. Persistent nodular opacity at the right lung base. Follow-up PA and lateral views recommended as on prior exam. 3. Mildly low lung volumes. No other convincing evidence of acute cardiopulmonary disease. Electronically signed by: Bassam Benedict M.D. 02/28/2019 10:06 PM [facility], [place] [phone] CT Scan Report Patient: IRA SHEEHAN Date: 02/28/19 MR#: [id number]: [address] JACLYN DIXON Acct ID:[id number]: Date: 1935[facility] Zip: [place] [address] Age: 83Location: ED Sex: F Room/Bed: Att Phy:Diagnosis: FALL/PAIN RT HIP Shabnam Phy: Jair Wren, III, MDService Date: 02/28/19 Fam Phy:Interpreting Phy: Bassam Benedict MD Admit Phy: Ordering Phy: Laura Roque ., NELY cc: ~ CT cervical spine wo con CLINICAL HISTORY: 83 years-old Female presenting with fall, head/R face injury on ASA. TECHNIQUE: Multidetector CT of the cervical spine was performed without the use of intravenous contrast. IV contrast: None. One or more dose lowering techniques were used consistent with the principles of ALARA (as low as reasonably achievable), including automatic exposure control, mA or kV adjustment to individual patient size, and/or use of iterative reconstruction. COMPARISON: None. CT DOSE (mGy.cm): The estimated cumulative dose is 2102.16. FINDINGS: Warp Drawer topogram: Internal fixation of the right humerus. The extent of degenerative change throughout the cervical spine X assessment difficult. Heterogeneity of bone marrow with heterogeneous sclerosis may relate to degenerative change or an underlying marrow replacement process. There is osseous fusion across the C2-3 level as well as involving osseous fusion across the posterior elements of these levels. Overall lordosis is preserved. Slight anterolisthesis of C3 on C4 and retrolisthesis of C4 on C5, most likely degenerative in etiology. Multilevel intervertebral disc height loss to varying degrees. Osseous spinal canal narrowing at C4 as result of retrolisthesis. Varying degrees of osseous neural foraminal narrowing. Allowing for the degree of change, no acute osseous injury is apparent. Visualized portion of the skull base intact. IMPRESSION: 1. Extensive multilevel degenerative changes and bone marrow changes. Presum ably bone marrow changes are degenerative in etiology or, less likely, related to a marrow replacement process. The degree of degenerative change makes assessment for acute osseous injury more limited. 2. Allowing for this, no evidence of acute osseous injury of the cervical spine. Electronically signed by: Bassam Benedict M.D. 02/28/2019 10:47 PM Dictated: 02/28/192241 Transcribed: 02/28/192241 [phone] Scan Report Patient: IRA SHEEHAN Date: 02/28/19 MR#: [id number]: 126 JACLYN MOLLY Acct ID:[id number]: Date: 1935[facility] Zip: [place] [address] Age: 83Location: ED Sex: F Room/Bed: Att Phy:Diagnosis: FALL/PAIN RT HIP Shabnam Phy: Jair Wren III, MDService Date: 02/28/19 [facility] Phy:Interpreting Phy: Bassam Benedict MD Admit Phy: Ordering Phy: Laura Roque PA-C cc: ~ CT abd pelvis wo con CLINICAL HISTORY: 83 years-old Female presenting with generalized abdominal pain, fall with right-sided facial injury, pain. TECHNIQUE: Multidetector CT of the abdomen and pelvis was performed without the use of intravenous contrast. IV contrast: None. One or more dose lowering techniques were used consistent with the principles of ALARA (as low as reasonably achievable), including automatic exposure control, mA or kV adjustment to individual patient size, and/or use of iterative reconstruction. COMPARISON: None. CT DOSE (mGy.cm): The estimated cumulative dose is 2102.16 mGy.cm. FINDINGS: Warp Drawer topogram: Unremarkable. Lung bases: Multichamber enlargement of the heart. Coronary artery calcification. No pericardial or pleural effusion. Minimal dependent changes likely atelectasis. Liver: Normal morphology. Normal density. Biliary: No gross biliary ductal dilatation allowing for noncontrast technique. Gallstones at the gallbladder fundus. The gallbladder may be physiologically distended. Wall thickening may be present. Trace fluid at the gallbladder f undus. It is difficult to tell if this is emanating from the gallbladder or is merely adjacent to the gallbladder. Pancreas: Severe parenchymal atrophy. Spleen: Normal noncontrast appearance. Adrenal glands: Nonspecific thickening of the adrenal glands and Kidneys and ureters: Normal noncontrast appearance. No nephrolithiasis. No hydronephrosis. Normal ureters. Bladder: Normal noncontrast appearance. Pelvic organs: Normal noncontrast appearance. Bowel: Diverticulosis of the mid sigmoid colon without wall thickening or pericolonic inflammatory change. A significant portion of the transverse colon is contained within the large ventral hernia. The appendix is normal. No bowel obstruction. Large predominantly sliding type hiatal hernia. Peritoneal cavity: Trace free fluid in the right paracolic gutter. No free intraperitoneal gas or extraluminal gas. No pneumatosis. Lymph nodes: No gross lymphadenopathy allowing for noncontrast technique. Vasculature: Atherosclerosis of the normal caliber abdominal aorta. Abdominal wall: Large ventral hernia in the region of the umbilicus with a relatively narrow neck measuring 4.7 cm in comparison to the hernia sac diameter, which measures 14.7 cm. No infiltration of the hernia sac. Musculoskeletal: Degenerative changes of the spine. Partially visualized internal fixation of the right humerus. Posttraumatic deformities in the pelvis. Moderate compression deformity at T11, which is age indeterminate. IMPRESSION: 1. Large ventral hernia in the umbilical/periumbilical region containing a significant portion of transverse colon. No bowel obstruction or evidence of strangulation. 2. Distended gallbladder containing gallstones with adjacent pericholecystic fluid. Gallbladder wall thickening cannot be excluded. Right upper quadrant ultrasound is recommended for further assessment as these findings raise concern for cholecystitis. 3. Age-indeterminate compression deformity of T11. Correlate with point tenderness. The report will be called/faxed according to standard departmental protocol. Electronically signed by: Bassam Benedict M.D. 02/28/2019 10:53 PM Dictated: 02/28/192246 Transcribed: 02/28/192246 [facility] Patient: IRA SHEEHAN (Female) Age: 83 MR #: [id number] Status: ER Date: 02/28/19 23:11 Slices: 342 History: F/U LUNG NODULE FOUND ON CXR Priors: Tech: Radhamargarita Sanjay @ [phone] Exams: CT CHEST Without Contrast Accession Numbers: [id number] Preliminary Findings Only See Final Report For Complete Findings CT CHEST Without Contrast: No discrete pulmonary mass lesion. No effusion or consolidation. Cardiomegaly. Large hiatal hernia. Fixation hardware in the right humerus. Degenerative changes of the shoulders. Compression deformity of T11, of uncertain chronicity. No retropulsion. Radiologist: Manju Powers M.D. Study ready at 23:44 and initial results transmitted at 23:56 *This report constitutes a preliminary interpretation only. Non-acute findings felt to be unrelated to the clinical presentation may not be discussed in this report. The study will be interpreted and a final report will be generated by the local Radiologist the following shift. To reach the hospital radiology department call [phone]. If a discrepancy is found between the preliminary and final interpretations of this study, please notify us via our Client Portal at [email or web address].You can also fax this report with a description of the discrepancy, or include the final report, to our daytime fax number [phone].If faxing, please indicate the severity of discrepancy using one of the following categories: [ ] 1 - Agree/Informational [ ] 2 - Unlikely to Affect Management [ ] 3 - Possible Eventual Change of Management [ ] 4 - Probable Immediate Change of Management For all other patient related information, please fax us at [phone]. [id number] [facility] Patient: IRA SHEEHAN (Female) Age: 83 MR #: [id number] Status: ER Date: 02/28/19 23:33 Slices: 33 History: ruq pain; abnormal ct Priors: Tech: Tess Poe @ [phone] Exams: US RUQ Accession Numbers: [id number] Preliminary Findings Only See Final Report For Complete Findings US RUQ: Gallbladder wall thickening with edema, measuring up to 9 mm. Cholelithiasis and pericholecystic edema. Findings suggest cholecystitis. No biliary ductal dilatation. Pancreas is obscured. Radiologist: Manju Powers M.D. Study ready at 23:42 and initial results transmitted at 23:49 *This report constitutes a preliminary interpretation only. Non-acute findings felt to be unrelated to the clinical presentation may not be discussed in this report. The study will be interpreted and a final report will be generated by the local Radiologist the following shift. To reach the hospital radiology department call [phone]. If a discrepancy is found between the preliminary and final interpretations of this study, please notify us via our Client Portal at [email or web address].You can also fax this report with a description of the discrepancy, or include the final report, to our daytime fax number [phone].If faxing, please indicate the severity of discrepancy using one of the following categories: [ ] 1 - Agree/Informational [ ] 2 - Unlikely to Affect Management [ ] 3 - Possible Eventual Change of Management [ ] 4 - Probable Immediate Change of Management For all other patient related information, please fax us at [phone]. [id number] Code Status & VTE Plan Code Status Full code VTE Prophylaxis Plan VTE Prophylaxis will be ordered: Yes PG Care Time/CCT Total # of Minutes Spent Total Time Spent with Patient: Total time spent is greater than 50% in coordination of care (as documented) at patient's floor/unit and/or counseling patient:
--- NOTE | 2019-03-01 02:40 | Emergency Department Note ---
History of Present Illness General Chief complaint: Fall Stated complaint: FALL/PAIN RT HIP History of Present Illness This 83-year-old with dementia presents to the ER complaining of fall today and abdominal pain for the past few days with nausea and vomiting Location: Generalized Quality: Nauseous Severity: Moderate Duration: Past 2 days Timing: Started 2 days ago Context: Patient fell today and son brought the patient in Modifying factors: better with nothing; worse with nothing Patient has dementia and history is obtained from the son who is the primary caregiver. The son states that the patient's been vomiting and having abdominal pain for the past few days. He states today she got up and fell striking her head. She is on aspirin. He was concerned and brought her in. Home Medications Home Medications Medication Instructions Recorded Confirmed Type aspirin 81 mg PO QAM 08/11/18 02/28/19 History cholecalciferol (vitamin D3) 2,000 units PO QAM 08/11/18 02/28/19 History [Vitamin D3] insulin human U-100 NPH-regulr 1 sliding scale dose SUBCUT 11/22/18 02/28/19 Rx 70-30 mix 100 unit/mL subcutaneous USEASDIRECTD #40 ml susp omeprazole 20 mg capsule,delayed 20 mg PO QAM #90 cap 11/22/18 02/28/19 Rx release lorazepam 0.5 mg tablet 0.5 mg PO DAILY #30 tab 12/03/18 02/28/19 Rx alendronate 70 mg tablet 70 mg PO .COMPLEX #4 tab 01/19/19 02/28/19 Rx donepezil 5 mg tablet 5 mg PO HS #30 tab 02/07/19 02/28/19 Rx calcium carbonate [Calcium 600] 600 mg PO QAM 02/28/19 02/28/19 History Allergies Allergy/AdvReac Type Severity Reaction Status Date / Time No Known Allergies Allergy Unknown Verified 02/28/19 23:53 Past Med/Surg History Medical History Diabetes (Chronic) Dementia (Chronic) Social History Preferred Language: Vietnamese Current Living Situation: Family Feels Safe at Home: Yes Smoking Status: Former smoker Review of Systems Unobtainable due to cognitive status Physical Exam Vital Signs Vital Signs - 24 hr 02/28/19 21:11 02/28/19 21:46 02/28/19 23:00 Temperature 36.6 C Temperature Source Oral Sepsis Recent Fever Within 48 Hours No Sepsis Action Taken by Nursing No Action Required Pulse Rate 75 72 Pulse Rate from SpO2 Sensor 72 Respiratory Rate 18 25 H Respiratory Effort / Characteristics Non-Labored Respiratory Depth Normal Blood Pressure 112/68 131/78 Blood Pressure Mean 82 95 Pulse Oximetry 94 94 Oxygen Delivery Method Room Air Room Air 02/28/19 23:43 03/01/19 00:00 03/01/19 00:01 Temperature Temperature Source Sepsis Recent Fever Within 48 Hours Sepsis Action Taken by Nursing Pulse Rate 64 64 Pulse Rate from SpO2 Sensor Respiratory Rate 27 H 32 H 34 H Respiratory Effort / Characteristics Respiratory Depth Blood Pressure 125/50 L Blood Pressure Mean 75 Pulse Oximetry Oxygen Delivery Method 03/01/19 00:30 Temperature Temperature Source Sepsis Recent Fever Within 48 Hours Sepsis Action Taken by Nursing Pulse Rate 64 Pulse Rate from SpO2 Sensor Respiratory Rate 27 H Respiratory Effort / Characteristics Respiratory Depth Blood Pressure Blood Pressure Mean Pulse Oximetry Oxygen Delivery Method VITALS: Vitals are noted on the nurse's note and reviewed by myself. Vital signs stable. GENERAL: Pleasant elderly female confused appearing, in no acute distress, nondiaphoretic, well-developed well-nourished. SKIN: Right zygomatic contusion, the rest of the skin was without rashes, erythema, edema, or bruising. There is no tenting of the skin. Capillary reflex less than 2 seconds. HEAD: Normocephalic atraumatic. Face: Right zygomatic tenderness. Patient can fully open and close jaw without pain. No dental injury appreciated. EARS: External auditory canals clear, tympanic membranes pearly lr without erythema or effusion bilaterally. EYES: Pupils equal round and reactive to light and accommodation. Conjunctivae without injection, sclerae without icterus. Extraocular movements intact. NOSE: Patent, turbinates without inflammation or discharge. No sinus tenderness. MOUTH: Mucous membranes moist. Pharynx without erythema or exudate. Uvula midline. Airway patent. Tongue does not deviate. NECK: Supple without nuchal rigidity. No lymphadenopathy. No thyromegaly. Cervical spine is nontender. No JVD. HEART: Regular rate and rhythm LUNGS: Clear to auscultation bilaterally without wheezes, rales or rhonchi. No retractions or accessory muscle use. ABDOMEN: Positive bowel sounds x 4. Normal tympanic percussion. Soft, tender to palpation upper abdomen, without masses or organomegaly. No guarding or rebound tenderness. No CVA tenderness MUSCULOSKELETAL: No muscle atrophy, erythema, or edema noted. No thoracic or lumbar tenderness on exam. Full range of motion of all extremities without pain. NEURO: Patient was alert and oriented to person but not place and time. Patient is able to follow commands. Course Administered Medications Discontinued Medications Sodium Chloride (Nss) 500 mls @ 999 mls/hr IV .Q31M PAM Stop: 02/28/19 22:30 Last Infusion: 02/28/19 23:21 Dose: 0 mls/hr Documented by: [id number] Admin: 02/28/19 22:33 Dose: 999 mls/hr Documented by: [id number] Piperacillin Sod/Tazobactam Sod (Zosyn) 4.5 gm in 120 mls @ 240 mls/hr IV NOW ONE Stop: 03/01/19 00:30 Last Infusion: 03/01/19 01:00 Dose: 0 mls/hr Documented by: [id number] Admin: 03/01/19 00:29 Dose: 240 mls/hr Documented by: [id number] Medical Decision Making Medical Records Attestation: I reviewed the patient's medical records. Home Medications Current Medication List: was personally reviewed by me Laboratory Data Attestation: I reviewed the patient's lab results. Result diagrams: 02/28/19 21:53 02/28/19 21:53 Lab Results 02/28/19 02/28/19 02/28/19 Range/Units 21:53 21:53 22:01 WBC 8.29 (4.8-10.8) K/uL RBC 4.03 L (4.2-5.4) M/uL Hgb 12.1 (12.0-16.0) g/dL POC Hgb 13.3 (12.0-16.0) g/dl Hct 35.8 L (37-47) % POC Hct 39 (37-47) % MCV 88.8 (80-100) fL MCH 30.0 (25-34) pg MCHC 33.8 (32-36) g/dL RDW Std Deviation 44.1 (36.4-46.3) fL RDW Coeff of Luis E 13.6 (11.5-14.5) % Plt Count 147 (130-400) K/uL MPV 11.4 H (7.4-10.4) fL Immature Gran % (Auto) 0.2 % Neut % (Auto) 85.3 % Lymph % (Auto) 6.0 % [place] % (Auto) 8.3 % Eos % (Auto) 0.1 % Baso % (Auto) 0.1 % Immature Gran # (Auto) 0.02 (0.00-0.02) K/uL Neut # (Auto) 7.06 H (1.4-6.5) K/uL Lymph # (Auto) 0.50 L (1.2-3.4) K/uL [place] # (Auto) 0.69 H (0.11-0.59) K/uL Eos # (Auto) 0.01 (0-0.5) K/uL Baso # (Auto) 0.01 (0-0.2) K/uL POC Sodium 130 L (135-144) mEq/L Sodium 130 L (136-145) mmol/L POC Potassium 4.4 (3.3-5.0) mEq/L Potassium 4.3 (3.5-5.1) mmol/L POC Chloride 93 L (101-112) mEq/L Chloride 94 L (98-107) mmol/L Carbon Dioxide 28 (21-32) mmol/L POC Total CO2 28 (24-31) mEq/l Anion Gap 7.0 (3-11) POC Anion Gap 15.0 L (16-25) mmol/L POC BUN 39 H (7-18) mg/dl BUN 41 H (7-18) mg/dl Creatinine 2.17 H (0.6-1.2) mg/dl POC Creatinine 2.1 H (0.6-1.3) mg/dl Est Cr Clr Drug Dosing 20.4 ml/min Est GFR ( Amer) 23.6 Est GFR (Non-Af Amer) 20.4 BUN/Creatinine Ratio 19.1 (10-20) Glucose 163 H (70-99) mg/dl POC Glucose (other) 162 H (70-99) mg/dl Calcium 9.4 (8.5-10.1) mg/dl POC Ioniz Calcium [place]lin 1.17 (1.12-1.32) mmol/l Magnesium 1.7 L (1.8-2.4) mg/dl Total Bilirubin 1.0 (0.2-1) mg/dl AST 14 L (15-37) U/L ALT 16 (12-78) U/L Alkaline Phosphatase 64 (45-117) U/L Troponin I < 0.015 (0-0.045) ng/ml Total Protein 7.3 (6.4-8.2) gm/dl Albumin 3.2 L (3.4-5.0) gm/dl Globulin 4.1 H (2.5-4.0) gm/dl Albumin/Globulin Ratio 0.8 L (0.9-2) TSH 3.530 (0.300-4.500) uIu/ml Urine Color Urine Appearance (Clear) Urine pH (4.5-7.5) Ur Specific [place] (1.000-1.030) Urine Protein (Negative) Urine Glucose (UA) (Negative) Urine Ketones (Negative) Urine Blood (Negative) Urine Nitrite (Negative) Urine Bilirubin (Negative) Urine Urobilinogen (Negative) Ur Leukocyte Esterase (Negative) 02/28/19 Range/Units 22:50 WBC (4.8-10.8) K/uL RBC (4.2-5.4) M/uL Hgb (12.0-16.0) g/dL POC Hgb (12.0-16.0) g/dl Hct (37-47) % POC Hct (37-47) % MCV (80-100) fL MCH (25-34) pg MCHC (32-36) g/dL RDW Std Deviation (36.4-46.3) fL RDW Coeff of Luis E (11.5-14.5) % Plt Count (130-400) K/uL MPV (7.4-10.4) fL Immature Gran % (Auto) % Neut % (Auto) % Lymph % (Auto) % [place] % (Auto) % Eos % (Auto) % Baso % (Auto) % Immature Gran # (Auto) (0.00-0.02) K/uL Neut # (Auto) (1.4-6.5) K/uL Lymph # (Auto) (1.2-3.4) K/uL [place] # (Auto) (0.11-0.59) K/uL Eos # (Auto) (0-0.5) K/uL Baso # (Auto) (0-0.2) K/uL POC Sodium (135-144) mEq/L Sodium (136-145) mmol/L POC Potassium (3.3-5.0) mEq/L Potassium (3.5-5.1) mmol/L POC Chloride (101-112) mEq/L Chloride (98-107) mmol/L Carbon Dioxide (21-32) mmol/L POC Total CO2 (24-31) mEq/l Anion Gap (3-11) POC Anion Gap (16-25) mmol/L POC BUN (7-18) mg/dl BUN (7-18) mg/dl Creatinine (0.6-1.2) mg/dl POC Creatinine (0.6-1.3) mg/dl Est Cr Clr Drug Dosing ml/min Est GFR ( Amer) Est GFR (Non-Af Amer) BUN/Creatinine Ratio (10-20) Glucose (70-99) mg/dl POC Glucose (other) (70-99) mg/dl Calcium (8.5-10.1) mg/dl POC Ioniz Calcium [place] (1.12-1.32) mmol/l Magnesium (1.8-2.4) mg/dl Total Bilirubin (0.2-1) mg/dl AST (15-37) U/L ALT (12-78) U/L Alkaline Phosphatase (45-117) U/L Troponin I (0-0.045) ng/ml Total Protein (6.4-8.2) gm/dl Albumin (3.4-5.0) gm/dl Globulin (2.5-4.0) gm/dl Albumin/Globulin Ratio (0.9-2) TSH (0.300-4.500) uIu/ml Urine Color Dark Yellow Urine Appearance Clear (Clear) Urine pH 5.0 (4.5-7.5) Ur Specific [place] 1.023 (1.000-1.030) Urine Protein Negative (Negative) Urine Glucose (UA) Negative (Negative) Urine Ketones Trace H (Negative) Urine Blood Negative (Negative) Urine Nitrite Negative (Negative) Urine Bilirubin 1+ H (Negative) Urine Urobilinogen Negative (Negative) Ur Leukocyte Esterase Negative (Negative) Imaging Data Attestation: I personally reviewed and interpreted this imaging study as follows: Head Trauma GCS Score: 15 MDM Narrative Prior records/ancillary studies reviewed. Triage Nursing notes reviewed. Additional history obtained from family. The patient's history was concerning for traumatic injury Differential diagnosis: Etiologies such as fracture, dislocation, intra-abdominal, pneumothorax, intrathoracic , intracranial, neurologic, as well as other traumatic pathologies were entertained. Physical examination findings: As above. The patients vitals were stable. ER treatment provided: IV Normal Saline hydration, Zosyn On reassessment the patient felt better. Vital signs were stable. Diagnostic interpretation by me: EKG ordered for fall. It is unclear if patient tripped and fell or had a mechanical fall. EKG: Normal sinus, left bundle branch block, left axis deviation, no acute ST-T wave changes. Impression left bundle branch block with a left axis deviation interpreted by myself I think arrhythmia is unlikely. EKG shows normal sinus rhythm with no interval abnormalities such as QT prolongation or WPW. There are no findings to suggest Brugada syndrome. Cardiac monitoring in the emergency department reveals no tachycardic or bradycardic dysrhythmia. Hypertrophic cardiomyopathy was considered but there are no clear historical elements pointing toward this. EKG is not suggestive. The QRS voltage is not extremely large and there are no suggestive Q waves. The labs revealed elevated creatinine. No leukocytosis. Negative urine Imaging studies: US RUQ: Gallbladder wall thickening with edema, measuring up to 9 mm. Cholelithiasis and pericholecystic edema. Findings suggest cholecystitis. No biliary ductal dilatation. Pancreas is obscured. Radiologist: Manju Powers M.D. CT CHEST Without Contrast: No discrete pulmonary mass lesion. No effusion or consolidation. Cardiomegaly. Large hiatal hernia. Fixation hardware in the right humerus. Degenerative changes of the shoulders. Compression deformity of T11, of uncertain chronicity. No retropulsion. Radiologist: Manju Powers M.D. CT abd pelvis wo con CLINICAL HISTORY: 83 years-old Female presenting with generalized abdominal pain, fall with right-sided facial injury, pain. TECHNIQUE: Multidetector CT of the abdomen and pelvis was performed without the use of intravenous contrast. IV contrast: None. One or more dose lowering techniques were used consistent with the principles of ALARA (as low as reasonably achievable), including automatic exposure control, mA or kV adjustment to individual patient size, and/or use of iterative reconstruction. COMPARISON: None. CT DOSE (mGy.cm): The estimated cumulative dose is 2102.16 mGy.cm. FINDINGS: Pastoral Counselor topogram: Unremarkable. Lung bases: Multichamber enlargement of the heart. Coronary artery calcification. No pericardial or pleural effusion. Minimal dependent changes likely atelectasis. Liver: Normal morphology. Normal density. Biliary: No gross biliary ductal dilatation allowing for noncontrast technique. Gallstones at the gallbladder fundus. The gallbladder may be physiologically d istended. Wall thickening may be present. Trace fluid at the gallbladder fundus. It is difficult to tell if this is emanating from the gallbladder or is merely adjacent to the gallbladder. Pancreas: Severe parenchymal atrophy. Spleen: Normal noncontrast appearance. Adrenal glands: Nonspecific thickening of the adrenal glands and Kidneys and ureters: Normal noncontrast appearance. No nephrolithiasis. No hydronephrosis. Normal ureters. Bladder: Normal noncontrast appearance. Pelvic organs: Normal noncontrast appearance. Bowel: Diverticulosis of the mid sigmoid colon without wall thickening or pericolonic inflammatory change. A significant portion of the transverse colon is contained within the large ventral hernia. The appendix is normal. No bowel obstruction. Large predominantly sliding type hiatal hernia. Peritoneal cavity: Trace free fluid in the right paracolic gutter. No free intraperitoneal gas or extraluminal gas. No pneumatosis. Lymph nodes: No gross lymphadenopathy allowing for noncontrast technique. Vasculature: Atherosclerosis of the normal caliber abdominal aorta. Abdominal wall: Large ventral hernia in the region of the umbilicus with a relatively narrow neck measuring 4.7 cm in comparison to the hernia sac diameter, which measures 14.7 cm. No infiltration of the hernia sac. Musculoskeletal: Degenerative changes of the spine. Partially visualized internal fixation of the right humerus. Posttraumatic deformities in the pelvis. Moderate compression deformity at T11, which is age indeterminate. IMPRESSION: 1. Large ventral hernia in the umbilical/periumbilical region containing a significant portion of transverse colon. No bowel obstruction or evidence of strangulation. 2. Distended gallbladder containing gallstones with adjacent pericholecystic fluid. Gallbladder wall thickening cannot be excluded. Right upper quadrant ultrasound is recommended for further assessment as these findings raise concern for cholecystitis. 3. Age-indeterminate compression deformity of T11. Correlate with point tenderness. The report will be called/faxed according to standard departmental protocol. CT head/brain wo con CLINICAL HISTORY: 83 years-old Female presenting with fall, head/R face injury on ASA. TECHNIQUE: Multidetector CT imaging of the head was performed without the use of intravenous contrast. IV contrast: None. One or more dose lowering techniques were used consistent with the principles of ALARA (as low as reasonably achievable), including automatic exposure control, mA or kV adjustment to individual patient size, and/or use of iterative reconstruction. COMPARISON: 08/11/2018. CT DOSE (mGy.cm): The estimated cumulative dose is 2102.16. FINDINGS: Pastoral Counselor topogram: Internal fixation of the right humerus. Proportional ventricular and sulcal prominence, likely age-related parenchymal volume loss. No hemorrhage. Periventricular and subcortical white matter hypoattenuation, nonspecific but likely indicative of chronic small vessel ischemic change. No acute territorial infarct. No mass effect or midline shift. No extra-axial fluid collection. Paranasal sinuses and mastoid air cells clear. Calvarium intact. IMPRESSION: 1. Chronic small vessel ischemic change. No acute intracranial abnormality. Electronically signed by: Bassam Benedict M.D. 02/28/2019 10:40 PM Dictated: 02/28/192237 Transcribed: 02/28/192237 Electronically signed by: Bassam Benedict M.D. CT facial bones wo con CLINICAL HISTORY: 83 years-old Female presenting with fall, head/R face injury on ASA. TECHNIQUE: Multidetector CT of the face was performed without the use of intravenous contrast. IV contrast: None. One or more dose lowering techniques were used consistent with the principles of ALARA (as low as reasonably achievab le), including automatic exposure control, mA or kV adjustment to individual patient size, and/or use of iterative reconstruction. COMPARISON: None. CT DOSE (mGy.cm): The estimated cumulative dose is 2102.16. FINDINGS: Pastoral Counselor topogram: Internal fixation of the right humerus. The patient is edentulous. Superficial soft tissues of the face do not demonstrate asymmetry or focal swelling. No superficial soft tissue hematoma. [place] lenses are absent from the globes. Orbits otherwise normal. Age-related parenchymal volume loss of the brain. Paranasal sinuses with mild polypoid mucosal thickening in the inferior left maxillary sinus but are otherwise clear. Zygomatic processes intact. Temporomandibular joints and mandible intact. Upper cervical spine intact. IMPRESSION: 1. No acute osseous injury of the face. Electronically signed by: Bassam Benedict M.D. CT cervical spine wo con CLINICAL HISTORY: 83 years-old Female presenting with fall, head/R face injury on ASA. TECHNIQUE: Multidetector CT of the cervical spine was performed without the use of intravenous contrast. IV contrast: None. One or more dose lowering techniques were used consistent with the principles of ALARA (as low as reasonably achievable), including automatic exposure control, mA or kV adjustment to keena vidual patient size, and/or use of iterative reconstruction. COMPARISON: None. CT DOSE (mGy.cm): The estimated cumulative dose is 2102.16. FINDINGS: Pastoral Counselor topogram: Internal fixation of the right humerus. The extent of degenerative change throughout the cervical spine X assessment difficult. Heterogeneity of bone marrow with heterogeneous sclerosis may relate to degenerative change or an underlying marrow replacement process. There is osseous fusion across the C2-3 level as well as involving osseous fusion across the posterior elements of these levels. Overall lordosis is preserved. Slight anterolisthesis of C3 on C4 and retrolisthesis of C4 on C5, most likely degenerative in etiology. Multilevel intervertebral disc height loss to varying degrees. Osseous spinal canal narrowing at C4 as result of retrolisthesis. Varying degrees of osseous neural foraminal narrowing. Allowing for the degree of change, no acute osseous injury is apparent. Visualized portion of the skull base intact. IMPRESSION: 1. Extensive multilevel degenerative changes and bone marrow changes. Presumably bone marrow changes are degenerative in etiology or, less likely, related to a marrow replacement process. The degree of degenerative change makes assessment for acute osseous injury more limited. 2. Allowing for this, no evidence of acute osseous injury of the cervical spine. Electronically signed by: Bassam Benedict M.D. 02/28/2019 10:47 PM Consultation: A consultation was placed with surgery Dr. Genao. The case was discussed and diagnostics were reviewed. He recommends transfer to tertiary facility due to patient's complicated medical history and presentation. I spoke with surgery at [place], Dr. Turner, and states there is a 10 bed wait in front of the patient but accepts the patient for transfer. He states it could be a day or 2 before there is a bed available. I spoke with medicineDr. Brown and will evaluate the patient for possible admission pending transfer. Dr. Genao was made aware of this. Both specialty providers were in agreement with treatment plan. This appears to be consistent with acute cholecystitis with head injury in a demented patient with acute kidney injury. Patient started on antibiotics. Medicine and surgery and transfer center was consulted. Family is agreeable treatment plan. Patient was hydrated as above. My attending was made aware of this patient. By the evaluation outlined above emergent etiologies such as fracture, dislocation, pneumothorax, pulmonary contusion, hemothorax, intracranial, neurologic,as well as others were deemed relatively unlikely. The family informed about the findings as listed above. All questions were answered and pleased with the treatment. Case reviewed with my attending The chart was completed utilizing [employer] Speech voice recognition software. Grammatical errors, random word insertions, pronoun errors, and incomplete sentences are an occassional consequence of this system due to software limitations, ambient noise, and hardware issues. Any formal questions or concerns about the content, text, or information contained within the body of this dictation should be directly addressed to the physician client services assistant for clarification. Impression & Plan Acute cholecystitis, Insulin-requiring or dependent type II diabetes mellitus, Diabetes, Dementia, Head injury, Contusion of face, Acute kidney injury Discharge Plan Visit Data Chief Complaint: Fall Stated Complaint: FALL/PAIN RT HIP ED Provider: Krunal Li ED Midlevel Provider: Laura Roque Discharge Problem: Acute cholecystitis, Insulin-requiring or dependent type II diabetes mellitus, Diabetes, Dementia, Head injury, Contusion of face, Acute kidney injury Patient Disposition: Being Evaluated by Hospitalist Condition: Fair Forms Stand Alone Forms: My [facility] [place] Prescriptions Prescriptions: No Action Novolin 70/30 U-100 Insulin 100 unit/mL (70-30) suspension 1 sliding scale dose SUBCUT USEASDIRECTD Qty: 40 RF: 3 omeprazole 20 mg capsule,delayed release(DR/EC) 20 mg PO QAM Qty: 90 RF: 3 lorazepam 0.5 mg tablet 0.5 mg PO DAILY Qty: 30 RF: 1 alendronate 70 mg tablet 70 mg PO .COMPLEX Qty: 4 RF: 11 donepezil 5 mg tablet 5 mg PO HS Qty: 30 RF: 5 aspirin 81 mg Tablet,Delayed Release (Dr/Ec) 81 mg PO QAM RF: 0 cholecalciferol (vitamin D3) [Vitamin D3] 2,000 unit Capsule 2,000 units PO QAM RF: 0 calcium carbonate [Calcium 600] 600 mg calcium (1,500 mg) Tablet 600 mg PO QAM RF: 0 Referrals Referrals: Jair Wren III, MD [Primary Care Provider] -
[2019-03-01] MEDS ORDERED: GLUCOSE 40% GEL 15 GM TUBE PO PRN (03:09)
[2019-03-01] MEDS ORDERED: CARBOHYDRATES FOR HYPOGLYCEMIA PO PRN (03:09)
[2019-03-01] MEDS ORDERED: GLUCAGON FOR INJ 1 MG VIAL SQ PRN (03:09)
[2019-03-01] MEDS ORDERED: DEXTROSE 50% 50 ML SYRINGE IV PRN (03:09)
[2019-03-01] MEDS ORDERED: ONDANSETRON INJ 2 MG/ML 2 ML VIAL IV PRN (03:09)
[2019-03-01] MEDS ORDERED: GLUCOSE 10 TABS/TUBE PO PRN (03:09)
[2019-03-01] MEDS ORDERED: SODIUM CHLORIDE 0.9% 1000ML 1,000 ML IV SCH (03:09)
[2019-03-01] MEDS ORDERED: Nursing to Pharmacy Communication ONE (03:37)
[2019-03-01] MEDS: INSULIN ASPART 100 UNITS/ML 3 ML PEN SC SCH ×2 (05:21→12:06)
[2019-03-01] MEDS ORDERED: MICONAZOLE NITRATE POWDER 43 GM EXT PRN (05:30)
[2019-03-01] MEDS ORDERED: MAGNESIUM SULFATE / D5W 1 GM/100 ML BAG IV ONE (05:46)
[2019-03-01 05:47] LABS: Estimated Average Glucose 166 mg/dl; Hemoglobin A1C 7.4 % (4.5-5.6)
[2019-03-01] MEDS ORDERED: HYDROmorphone INJ 0.5 MG/0.5 ML SYR IV PRN (05:52)
[2019-03-01] MEDS ORDERED: LORazepam 0.5 MG/1 ML VIAL IV PRN (05:56)
[2019-03-01] MEDS ORDERED: FAMOTIDINE 20 MG in SYRINGE 3 ML IV SCH (06:00)
[2019-03-01 06:06] LABS: Hematocrit (blood only) 33.2 % (37-47); Immature Granulocytes # (auto) 0.01 K/uL (0.00-0.02); Immature Granulocytes % (auto) 0.2 %; Lymphocytes # (auto) 0.34 K/uL (1.2-3.4); Lymphocytes % (auto) 5.5 %; Mean Corpuscular Hemoglobin 29.4 pg (25-34); Mean Corpuscular Hgb Conc 33.1 g/dL (32-36); Mean Corpuscular Volume 88.8 fL (80-100); Mean Platelet Volume 10.5 fL (7.4-10.4); Monocytes # (auto) 0.55 K/uL (0.11-0.59); Monocytes % (auto) 8.9 %; Neutrophils # (auto) 5.29 K/uL (1.4-6.5); Neutrophils % (auto) 85.4 %; Platelet Count 120 K/uL (130-400); RDW Coefficient of Variation 13.8 % (11.5-14.5); RDW Standard Deviation 44.6 fL (36.4-46.3); Red Blood Count 3.74 M/uL (4.2-5.4); White Blood Count 6.19 K/uL (4.8-10.8)
--- NOTE | 2019-03-01 06:29 | Progress Note ---
Date of Service March 01, 2019 Assessment & Plan (1) Acute cholecystitis: pt is stable with limited po and IV atbx cont current mgt await transfer Results & Data Vital Signs (Past 12 Hours) Vital Signs Temp Pulse Pulse Resp BP BP Pulse Ox 03/01/19 04:37 37.5 C 75 18 100/52 L 92 03/01/19 03:40 71 03/01/19 03:38 36.5 C 61 16 90/54 L 92 03/01/19 02:31 70 26 H 98/45 L 03/01/19 02:30 67 32 H 03/01/19 02:00 65 30 H 112/58 L 03/01/19 01:30 66 27 H 97/54 L 03/01/19 01:01 65 30 H 109/57 L 03/01/19 00:31 69 21 111/46 L 03/01/19 00:30 64 27 H 03/01/19 00:01 64 34 H 125/50 L 03/01/19 00:00 64 32 H 02/28/19 23:43 27 H 02/28/19 23:00 72 25 H 131/78 94 02/28/19 21:11 36.6 C 75 18 112/68 94 PG Care Time/CCT Total # of Minutes Spent Total Time Spent with Patient: Total time spent is greater than 50% in coordination of care (as documented) at patient's floor/unit and/or counseling patient:
--- NOTE | 2019-03-01 06:37 | CT Scan Report ---
CT chest wo con CT DOSE: 659.35 mGy.cm HISTORY: Lung nodule abnl cxr, dementia TECHNIQUE: Multiaxial CT images of the chest were performed without contrast. A dose lowering techni que was utilized adhering to the principles of ALARA. COMPARISON: None. FINDINGS: Mild motion artifact compromising high-resolution detail. Slight interstitial prominence. N o well-defined focal infiltrate or mass. Moderate atherosclerotic change thoracic aorta. Calcificatio n of the coronary arterial vasculature. Fixed hiatal hernia. Hyperplastic changes of the adrenal glands. IMPRESSION: 1. Somewhat compromised exam due to patient somatic motion. 2. Mild interstitial prominence throughout both hemithoraces. 3. Fixed hiatal hernia. 4. Mild compression deformity T11 most likely pre-existing The above report was generated using voice recognition software. It may contain grammatical, syntax or spelling errors. Electronically signed by: Shayan Avendano M.D. 03/01/2019 6:36 AM
--- NOTE | 2019-03-01 06:40 | Ultrasound Report ---
US gallbladder HISTORY: Pain. ruq pain, abnl CT COMPARISON: CT abdomen pelvis same date FINDINGS: Combination of gallstones combined with a component of pericholecystic edema. Gallbladder wall thicke paul measuring up to 6 mm. Common bile duct 4 mm. Liver demonstrates components of fatty infiltration . Poor visibility of the pancreas. Right kidney is negative for hydronephrosis. IMPRESSION: 1. Combination of gallstones, pericholecystic edema, and gallbladder wall thickening. 2. The appearance suggests acute cholecystitis. 3. Normal caliber bile ducts. The above report was generated using voice recognition software. It may contain grammatical, syntax or spelling errors. Electronically signed by: Shayan Avendano M.D. 03/01/2019 6:39 AM
[2019-03-01 06:44] LABS: Albumin Level 2.5 gm/dl (3.4-5.0); BUN Creatinine Ratio 23.4 (10-20); Bilirubin Direct 0.4 mg/dl (0-0.2); Calcium 8.4 mg/dl (8.5-10.1); Creatinine Clr Calc Pharmacy 23.8 ml/min; Est GFR (African American) 27.9; Est GFR (Non-African American) 24.1; Potassium 4.1 mmol/L (3.5-5.1)
[2019-03-01 06:46] LABS: Albumin Globulin Ratio 0.7 (0.9-2); Bilirubin,Total 1.1 mg/dl (0.2-1); Globulin 3.6 gm/dl (2.5-4.0); Phosphorus 3.4 mg/dl (2.5-4.9); Total Protein 6.1 gm/dl (6.4-8.2)
[2019-03-01] MEDS ORDERED: INSULIN ASPART 100 UNITS/ML 3 ML PEN SC SCH (07:30)
[2019-03-01] MEDS ORDERED: PIPERACILLIN/TAZOBACTAM 4.5 GM in DEXTROSE 5% 100 ML IV SCH (08:00)
--- NOTE | 2019-03-01 13:17 | Discharge Summary ---
Date of Service March 01, 2019 Admission HPI Per Admitting Provider The patient is an 83-year-old female with a past medical history including insulin requiring diabetes mellitus, osteoporosis, dementia, GERD and anxiety, who presents to the emergency department with 2 days of worsening abdominal pain, nausea and vomiting. She is also had progressive weakness, and did have a fall today, without any associated injury. Her oral intake has been decreased during this time as well. Admission Exam Per Admitting Provider The patient is awake, alert and oriented 3, ecchymosis around right eye, lying in bed and in intermittent acute distress secondary to abdominal pain. HEENT--PERRL, EOMI, mucous membranes and oropharynx dry. Neck--supple. No JVD. No bruits. Thyroid normal, trachea midline, no adenopathy . Heart--normal S1 and S2. No murmurs, rubs or gallops. Lungs--clear bilaterally, no respiratory distress, no accessory muscle use. Abdomen--normal bowel sounds and soft. Tender right upper quadrant and epigastrium. Nondistended. Extremities--no cyanosis or clubbing. No edema. There are good distal pulses b/l. Dermatologic--as noted above. Neurologic--cranial nerves II through XII grossly intact. Rheumatologic-limited exam. Psychiatric--normal affect. Principal Diagnosis Acute Cholecystitis Discharge Exam Constitutional WD/WN, vitals as above + lethargic (arousable to sternal rub) Eyes + anicteric sclerae ENMT external ear and nose normal, oropharynx normal Neck trachea midline Respiratory normal respiratory effort, lungs clear to auscultation Auscultation: no crackles, no rales, no wheezes and no pleural rub Cardiovascular RRR, no murmur, no edema Heart Sounds: normal S1 and normal S2 Gastrointestinal (Abdomen) Inspection/Auscultation: + significant pannus and + visible herniation (non- reducible ventral hernia; overlying skin is erythematous ) Percussion/Palpation: + abdomen tender (RUQ; ventral herniation is tender) and abdomen soft; no guarding Skin no rashes, warm and dry Neurologic + confused; + not awake Discharge Data Allergies Allergy/AdvReac Type Severity Reaction Status Date / Time No Known Allergies Allergy Unknown Verified 02/28/19 23:53 Consultations 03/01/19 00:20 ED Decision to Admit Stat 03/01/19 03:09 Consult Case Management - Discharge Planning Routine Consult General Surgery Routine Ordered Studies 02/28/19 21:46 CT cervical spine wo con Stat IMPRESSION: 1. Extensive multilevel degenerative changes and bone marrow changes. Presumably bone marrow changes are degenerative in etiology or, less likely, related to a marrow replacement process. The degree of degenerative change makes assessment for acute osseous injury more limited. 2. Allowing for this, no evidence of acute osseous injury of the cervical spine. CT facial bones wo con Stat IMPRESSION: 1. No acute osseous injury of the face. CT head/brain wo con Stat IMPRESSION: 1. Chronic small vessel ischemic change. No acute intracranial abnormality. 02/28/19 22:14 CT abd pelvis wo con Stat IMPRESSION: 1. Large ventral hernia in the umbilical/periumbilical region containing a s ignificant portion of transverse colon. No bowel obstruction or evidence of strangulation. 2. Distended gallbladder containing gallstones with adjacent pericholecystic fluid. Gallbladder wall thickening cannot be excluded. Right upper quadrant ultrasound is recommended for further assessment as these findings raise concern for cholecystitis. 3. Age-indeterminate compression deformity of T11. Correlate with point tenderness. 02/28/19 22:56 US gallbladder Urgent IMPRESSION: 1. Combination of gallstones, pericholecystic edema, and gallbladder wall thickening. 2. The appearance suggests acute cholecystitis. 3. Normal caliber bile ducts. 02/28/19 22:57 CT chest wo con Urgent IMPRESSION: 1. Somewhat compromised exam due to patient somatic motion. 2. Mild interstitial prominence throughout both hemithoraces. 3. Fixed hiatal hernia. 4. Mild compression deformity T11 most likely pre-existing CXR 02/28/19 IMPRESSION: 1. Cardiomegaly. 2. Persistent nodular opacity at the right lung base. Follow-up PA and lateral views recommended as on prior exam. 3. Mildly low lung volumes. No other convincing evidence of acute cardiopulmonary disease. Hospital Course (1) Acute cholecystitis: Ms. Wheeler is an 83 yo woman who was admitted to [facility] on 02/28/19-03/01/19 with a 2 day history of progressive abdominal pain with associated nausea and vomiting. CT of the abdomen revealed a distended gallbladder with gallstones and pericholecystic fluid. Follow up gallbladder US was suggestive of acute cholecystitis. The abdominopelvic CT scan also revealed a large ventral periumbilical hernia that contained a large portion of transverse colon. There was no evidence of strangulation at the time of the study. Patient was afebrile with a normal WBC count; AST was 12, ALT was 14, Alk phos was 52; T-bili only mildly elevated at 1.1; direct bili only mildly elevated at 0.4. Thus there was no suspicion for ascending cholangitis during her hospital stay The patient was started on IV zosyn for her acute cholecystitis and made NPO in anticipation of cholecystectomy. Her daily baby aspirin was held on 03/01. She was also started on famotidine 20mg IV for stress ulcer prophylaxis and given zophran for nausea. General Surgery was consulted, who recommended transfer to a tertiary care center for laproscopic cholecystectomy withe the possibility of conversion to open cholecystectomy ventral hernia repair. [facility] accepted the patient. She was admitted under our care until a bed was available on 03/01/19, at which time she was transferred. Outpatient items to do: Encourage post-cholecystectomy diet (ie low fat). (2) Ventral hernia: Visualized on Abdominopelvic CT scan. Impression of report is attached. Pending potential repair at [facility]. (3) Acute kidney injury superimposed on CKD: Ms. Odonnell has a history of CKD with a baseline Cr 1.3-1.5. Cr was 2.17 on arrival to the ED, likely secondary to reduced oral intake and fluid loss via vomiting in days preceding admission. Patient was given IV fluids and Cr improved to 1.89 at the time of discharge. Outpatient items to do: Monitor serum creatinine with BMP (4) Closed fracture of T11 vertebra: Visualized on C-spine CT scan on admission. Impression of report is attached. Age was described as indeterminate. Patient denied point tenderness on examination. (5) Head injury: Patient reportedly sustained a fall prior to admission. It is not known whether the fall was mechanical vs. syncopal in nature. Patient did report reduced PO intake and vomiting prior to admission, which may have predisposed her to orthostatic hypotension. BP on arrival to ED was 112/68. Patient received IV fluids while under our care. Head, face, C-spine and abdomen/pelvis CT scans were ordered. Reports are attached below. In summary, there was no subdural hematoma or acute intracranial fracture; no osseous abnormality of the facial bones. Only pertinent finding was an age indeterminate closed fracture of T11. (6) Insulin-requiring or dependent type II diabetes mellitus: Home insulin was held and patient was placed on sliding scale throughout hospital stay. (7) GERD (gastroesophageal reflux disease): Home dose of Omeprazole was held; Famotidine, 20mg IV, q12hr was administered. (8) Osteoporosis: Continue home fosamax. Closed fracture of T11 as described. Total Time Total Time Spent Total Time Spent (In Minutes): see attending attestation Discharge Plan Discharge Items Patient Disposition: Transfer Acute [facility] Reason For Visit: ACUTE CHOLECYSTITIS Discharge Diagnosis: Acute cholecystitis Large ventral hernia Condition on Discharge: Fair Goals: needs surgery Activity: Per Instructions section Non-emergency contact: Surgeon Call non-emergency contact if: you have any medication questions and your symptoms worsen Follow-up/Referrals: Jair Wren III, MD [Primary Care Provider] - Diet: Regular Diet Comment: NPO Addtl Attending Provider Instructions: transfer to [place] for surgery patient has been kept NPO for surgery, she has been on Zosyn Cr improved slightly from 2.1 to 1.8, baseline 1.5, resume IV fluids when she gets to [place] Pending Studies at Discharge: No Stand-Alone Forms: My [facility] Skilled Items Patient informed of condition?: Yes DNR: No Discharge Level of Care: Other Communicable Disease: No Discharge Prognosis: Stable Lines: Peripheral IV Urinary Catheter: Yes Medications and DC Order Prescriptions: Continued Novolin 70/30 U-100 Insulin 100 unit/mL (70-30) suspension 1 sliding scale dose SUBCUT USEASDIRECTD Qty: 40 RF: 3 omeprazole 20 mg capsule,delayed release(DR/EC) 20 mg PO QAM Qty: 90 RF: 3 lorazepam 0.5 mg tablet 0.5 mg PO DAILY Qty: 30 RF: 1 alendronate 70 mg tablet 70 mg PO .COMPLEX Qty: 4 RF: 11 donepezil 5 mg tablet 5 mg PO HS Qty: 30 RF: 5 aspirin 81 mg Tablet,Delayed Release (Dr/Ec) 81 mg PO QAM RF: 0 cholecalciferol (vitamin D3) [Vitamin D3] 2,000 unit Capsule 2,000 units PO QAM RF: 0 calcium carbonate [Calcium 600] 600 mg calcium (1,500 mg) Tablet 600 mg PO QAM RF: 0 Discharge Orders: Discharge Order (Routine); Ordered 03/01/19 Ordered By: Mauro Phillips Admission Data Admit Date/Time: 03/01/19 01:59 Attending Provider: Mauro Phillips Admit Provider: Dorian Barker Primary Care Provider: Jair Wren III Other Providers: Shai Genao ; Dorian Barker Other Interventions: Discharge Summary Assessment (RN) Last Done: 03/01/19 13:19 DC Date/Time DO NOT enter until pt leaves facility: 03/01/19 14:49 Supervising Physician Co-Signing Physician Notes Patient seen and examined with Dr. Porter. I agree with their exam findings, review of systems, assessment and plan. I have personally reviewed the lab work and imaging from today. Patient sleeping at time of my exam, awoke easily, she admitted to some mild pain in RUQ, no appetite, no nausea reviewed chart since time of admission, she was accepted to [place] and bed was available called her son to discuss with him, he was aware of transfer Exam: elderly female, oriented to person but not place or time, no distress lungs CTA bilaterally, normal effort, S1 and S2 regular, no murmurs abdomen tender in RUQ, soft, moderately sized ventral hernia that is not reducible but not tender - Acute calculous cholecystitis: continue Zosyn, normal WBC, afebrile, tender in RUQ plan for cholecystectomy at [place] since she will need repair of ventral hernia simultaneously for full details see resident note Resident Activity Tracking Resident Involvement: Resident Care Provided Care Provided: Adult Hospital Medicine
[2019-03-01] MEDS ORDERED: PIPERACILLIN/TAZOBACTAM 3.375 GM in DEXTROSE 5% 100 ML IV SCH (16:00)
== END 2019-03-01 14:49 | disposition short-term general hospital (02) ==
LOC: ED 21:09 → 2N 21:09 → SUATTDRO 03-01 01:59 → 2N 03-01 02:35

== ENCOUNTER 2020-04-29 16:42 | Inpatient (IN) ==
[2020-04-29] MEDS ORDERED: HALOPERIDOL LACTATE 5 MG/ML 1 ML VIAL IM STA (17:29)
[2020-04-29] MEDS ORDERED: LORazepam 1 MG TAB SL STA (17:29)
[2020-04-29] MEDS ORDERED: SODIUM CHLORIDE 0.9% 500 ML IV SCH (17:30)
--- NOTE | 2020-04-29 17:38 | Emergency Department Note ---
History of Present Illness General Chief complaint: Urinary Symptoms Stated complaint: URINARY SX, HYPERGLYCEMIA Time Seen by Provider: 04/29/20 17:00 Source: family (son), RN notes reviewed and old records reviewed Mode of arrival: ambulatory Limitations: altered mental status History of Present Illness Provider complaint: Altered mental status Onset (ago): day(s) 1 This is an 84 year old patient brought in by her son who present over concerns that the patients is acutely altered. Upon arrival to the emergency department the patient just screams and will not let anybody touch her. I had a lengthy discussion with the patient's son who reports that over the last few days the patient has not been eating or drinking. Last evening the patient could not get out of her chair and when she is approached by family members the patient just screams. The family is concerned that they can no longer take care of her at home. They report that this is not at her baseline. The family is concerned about a urinary tract infection and feels her urine smells strong. Home Medications Medication Instructions Recorded Confirmed Type aspirin 81 mg PO QAM 08/11/18 04/29/20 History calcium carbonate [Calcium 600] 600 mg PO QAM 02/28/19 04/29/20 History acetaminophen 500 mg tablet 1,000 mg PO Q8 PRN tab 04/01/19 04/29/20 History walker #1 ea 04/06/19 07/14/19 Rx cholecalciferol (vitamin D3) 2,000 units PO QAM 07/14/19 04/29/20 History docusate sodium 100 mg PO QAM 07/14/19 04/29/20 History multivit,stress formula-zinc 1 tab PO HS 07/14/19 04/29/20 History [Stress Formula with Zinc] sennosides 8.6 mg PO DAILY 07/14/19 04/29/20 History omeprazole 20 mg capsule,delayed 20 mg PO QAM #90 cap 07/27/19 04/29/20 Rx release quetiapine 50 mg tablet 50 mg PO HS #30 tab 10/11/19 04/29/20 Rx blood sugar diagnostic #400 ea 02/09/20 Rx insulin human U-100 NPH-regulr 1 sliding scale dose SUBCUT 02/09/20 04/29/20 Rx 70-30 mix 100 unit/mL subcutaneous USEASDIRECTD #40 ml susp insulin syringe-needle U-100 0.3 #200 ea 02/13/20 Rx mL 31 gauge x 5/16" nystatin-triamcinolone 100,000 1 applic TOP BID #30 gm 04/05/20 04/29/20 Rx unit/g-0.1 % topical cream lorazepam 0.5 mg tablet 0.5 mg PO QAM #30 tab 04/19/20 04/29/20 Rx Allergies Allergy/AdvReac Type Severity Reaction Status Date / Time No Known Allergies Allergy Unknown Verified 04/29/20 18:20 Past Med/Surg History Medical History (Updated 04/30/20 @ 00:09 by Krunal Li MD) Dementia Diabetes Surgical History History of cholecystectomy History of ventral hernia repair Family History Father Diabetes Brother Diabetes Aunt Diabetes Mother Hypertension Social History Smoking Status: Never smoker Hx Alcohol Use: No Hx Substance Use: No Preferred Language: Slovenian Communication Ability: Effective 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 Beliefs That Will Affect Care: None Current Living Situation: Family Current Living Situation Comment: son Feels Safe at Home: Yes Assistive Devices: None Review of Systems A total of 10 systems reviewed and were otherwise negative Physical Exam Vital Signs Vital Signs - 24 hr 04/29/20 16:47 04/29/20 17:29 04/29/20 19:19 Temperature 37.5 C Temperature Source Oral Pulse Rate 78 Pulse Rate [Apical] Respiratory Rate 16 18 Respiratory Effort / Characteristics Non-Labored Respiratory Depth Normal Respiratory Pattern Regular Blood Pressure 161/46 H Blood Pressure [Left Arm] 161/109 H Blood Pressure Mean 84 Blood Pressure Mean [Left Arm] 126 Pulse Oximetry 93 100 Oxygen Delivery Method Room Air Nasal Cannula Oxygen Flow Rate 2 Sepsis Recent Fever Within 48 Hours No Sepsis New/Unexplained Change in Mental Status Yes Sepsis Action Taken by Nursing No Action Required 04/29/20 20:25 Temperature Temperature Source Pulse Rate Pulse Rate [Apical] 64 Respiratory Rate 18 Respiratory Effort / Characteristics Respiratory Depth Respiratory Pattern Blood Pressure Blood Pressure [Left Arm] Blood Pressure Mean Blood Pressure Mean [Left Arm] Pulse Oximetry 99 Oxygen Delivery Method Room Air Oxygen Flow Rate Sepsis Recent Fever Within 48 Hours Sepsis New/Unexplained Change in Mental Status Sepsis Action Taken by Nursing -VITAL SIGNS - Vital signs and nursing notes were reviewed. GENERAL - 84-year-old female appearing stated age who is in no acute distress. Communicates well with provider and answers questions appropriately. SKIN - Without rashes. HEAD - NC/AT. EYES - PERRL with EOMI bilaterally. Sclera anicteric. Palpebral conjunctiva pink and moist with no injection noted. EARS - No deformities of external structures noted on gross examination bilaterally. No pain elicited with palpation of the tragus bilaterally. External auditory canals without discharge or otorrhea. Tympanic membranes pearly lr without retraction or bulging. No fluid or purulent material visualized behind the TM. Handle of malleus, umbo, cone of light, pars tensa/flaccid all easily visualized. NOSE - Midline and without cyanosis. No epistaxis or purulent drainage noted. Septum midline without deviation or septal hematoma noted. MOUTH/OROPHARYNX - Without perioral cyanosis. Buccal mucosa pink and moist and without leukoplakia. Tongue midline with equal elevation of palate bilaterally. No tonsillar hypertrophy, erythema, or exudates noted. dentition noted. NECK - Neck with FROM. Supple to palpation. lymphadenopathy noted. No nuchal rigidity. LUNGS - Chest wall symmetric without accessory muscle use, intercostals retractions, or central cyanosis. Normal vesicular breath sounds CTA B/L. No wheezes, rales, or rhonchi appreciated. CARDIAC - RRR with S1/S2. No murmur, rubs, or gallops appreciated. ABDOMEN - Abdominal contour without pulsations or visible masses. BS normoactive all four quadrants. No tenderness, palpable masses, hepatosplenomegaly, or ascites noted. EXTREMITIES - No clubbing or peripheral cyanosis. No pretibial edema present. +3/5 radial, posterior tibial, and dorsalis pedis pulses palpated throughout. +5/5 strength noted in UE/LE bilaterally. NEUROLOGIC - Cranial nerves II through XII grossly intact. Sensory intact to light touch throughout. Patellar reflexes +2/4. PSYCH - A&Ox3 and cooperates fully with examiner. Pt is very pleasant and interacts well with examiner. Course Administered Medications Albumin Human (Albumin 25%) 12.5 gm in 50 mls @ 50 mls/hr IV Q1H PAM Stop: 04/30/20 01:44 Last Admin: 04/29/20 23:57 Dose: 50 mls/hr Documented by: [id number] Infusion: 04/29/20 23:57 Dose: 50 mls/hr Documented by: [id number] Admin: 04/29/20 23:57 Dose: 50 mls/hr Documented by: [id number] Infusion: 04/29/20 23:57 Dose: 50 mls/hr Documented by: [id number] Admin: 04/29/20 23:20 Dose: 50 mls/hr Documented by: [id number] Infusion: 04/29/20 23:20 Dose: 50 mls/hr Documented by: [id number] Admin: 04/29/20 23:19 Dose: 50 mls/hr Documented by: [id number] Sodium Chloride (Nss 1000ml) 1,000 mls @ 100 mls/hr IV .Q10H [facility] Stop: 05/29/20 23:00 Last Admin: 04/29/20 23:19 Dose: 100 mls/hr Documented by: [id number] Discontinued Medications Dexamethasone (Dexamethasone Sod Inj 4 Mg/Ml Vial) 6 mg IV NOW STA Stop: 04/29/20 19:46 Last Admin: 04/29/20 20:23 Dose: 6 mg Documented by: [id number] Haloperidol Lactate (Haloperidol Lactate 5 Mg/Ml 1 Ml Vial) 5 mg IM NOW STA Stop: 04/29/20 17:30 Last Admin: 04/29/20 17:47 Dose: 5 mg Documented by: [id number] Sodium Chloride (Nss) 500 mls @ 999 mls/hr IV .Q31M PAM Stop: 04/29/20 18:00 Last Admin: 04/29/20 20:23 Dose: 999 mls/hr Documented by: [id number] Ceftriaxone Sodium (Rocephin) 2,000 mg in 70 mls @ 140 mls/hr IV NOW STA Stop: 04/29/20 19:03 Last Admin: 04/29/20 19:33 Dose: 140 mls/hr Documented by: [id number] Insulin Human Regular (Novolin-R Insulin Per Unit Charge) 10 units IV NOW STA Stop: 04/29/20 18:58 Last Admin: 04/29/20 19:33 Dose: 10 units Documented by: [id number] Cosigned by: [id number] Lorazepam (Lorazepam 1 Mg Tab) 1 mg SL NOW STA Stop: 04/29/20 17:30 Last Admin: 04/29/20 17:47 Dose: 1 mg Documented by: [id number] Miscellaneous (Patient's Height And/Or Weight Needed) 1 ea N/A Q30M PAM Stop: 05/29/20 23:14 Last Admin: 04/29/20 23:35 Dose: 1 ea Documented by: [id number] Critical Care Time I have personally spent greater than 90 minutes of critical care time in the direct management of this patient. This includes bedside care, interpretation of diagnostic studies, and testing, discussion with consultants, patient, and family members, and other required patient management activities. This 90 minutes is in excess of all separately billable procedures. Medical Decision Making Differential Diagnosis Infection, dehydration, metabolic abnormality, hypo/hyperglycemia, electrolyte disturbance, anemia, hypoxia, cardiac sources, intracerebral event, toxicologic, neurologic, as well as other pathologies. Medical Records Attestation: I reviewed the patient's medical records. Home Medications Current Medication List: was personally reviewed by me Laboratory Data Attestation: I reviewed the patient's lab results. Result diagrams: 04/29/20 18:37 04/29/20 18:37 Lab Results 04/29/20 04/29/20 04/29/20 Range/Units 17:05 18:37 18:37 WBC 3.30 L (4.8-10.8) K/uL RBC 4.12 L (4.2-5.4) M/uL Hgb 11.9 L (12.0-16.0) g/dL POC Hgb (12.0-16.0) g/dl Hct 37.1 (37-47) % POC Hct (37-47) % MCV 90.0 (80-100) fL MCH 28.9 (25-34) pg MCHC 32.1 (32-36) g/dL RDW Std Deviation 43.9 (36.4-46.3) fL RDW Coeff of Luis E 13.2 (11.5-14.5) % Plt Count 125 L (130-400) K/uL MPV 10.6 H (7.4-10.4) fL Immature Gran % (Auto) 0.3 % Neut % (Auto) 77.5 % Lymph % (Auto) 17.0 % [place] % (Auto) 5.2 % Eos % (Auto) 0.0 % Baso % (Auto) 0.0 % Neut # (Auto) 2.56 (1.4-6.5) K/uL Lymph # (Auto) 0.56 L (1.2-3.4) K/uL [place] # (Auto) 0.17 (0.11-0.59) K/uL Eos # (Auto) 0.00 (0-0.5) K/uL Baso # (Auto) 0.00 (0-0.2) K/uL Immature Gran # (Auto) 0.01 (0.00-0.02) K/uL ESR (0-21) mm/hr D-Dimer (0-500) ug/L FEU VBG pH (7.36-7.41) VBG pCO2 (38-50) mmHg VBG pO2 mmHg VBG HCO3 mmol/L VBG O2 Saturation % VBG Base Excess mEq/L Barometric Pressure mm/Hg POC Sodium (135-144) mmol/L Sodium 138 (136-145) mmol/L POC Potassium (3.3-5.0) mmol/L Potassium 5.6 H (3.5-5.1) mmol/L POC Chloride (101-112) mmol/L Chloride 105 (98-107) mmol/L Carbon Dioxide 25 (21-32) mmol/L POC Total CO2 (24-31) mmol/L Anion Gap 9.0 (3-11) POC Anion Gap (16-25) mmol/L POC BUN (7-18) mg/dl BUN 43 H (7-18) mg/dl Creatinine 1.50 H (0.6-1.2) mg/dl POC Creatinine (0.6-1.3) mg/dl Est Cr Clr Drug Dosing Not Reportable Est GFR ( Amer) 36.7 Est GFR (Non-Af Amer) 31.7 BUN/Creatinine Ratio 28.9 H (10-20) Glucose 450 H* (70-99) mg/dl POC Glucose (70-99) mg/dl POC Glucose (other) (70-99) mg/dl Calcium 8.7 (8.5-10.1) mg/dl POC Ioniz Calcium [place] (1.12-1.32) mmol/l Ferritin (8-388) ng/ml Total Bilirubin 0.8 (0.2-1) mg/dl AST 26 (15-37) U/L ALT 20 (12-78) U/L Alkaline Phosphatase 55 (45-117) U/L Lactate Dehydrogenase (84-246) U/L Total Creatine Kinase 250 H (26-192) U/L Troponin I 0.068 H* (0-0.045) ng/ml C-Reactive Protein (0-0.29) mg/dl Total Protein 7.2 (6.4-8.2) gm/dl Albumin 2.9 L (3.4-5.0) gm/dl Globulin 4.3 H (2.5-4.0) gm/dl Albumin/Globulin Ratio 0.7 L (0.9-2) Beta-Hydroxybutyric Acd (0.2-2.81) mg/dl TSH 1.030 (0.300-4.500) uIu/ml Specimen Hemolysis Urine Color Yellow Urine Appearance Clear (Clear) Urine pH 5.0 (4.5-7.5) Ur Specific [place] 1.022 (1.000-1.030) Urine Protein Trace H (Negative) Urine Glucose (UA) 3+ H (Negative) Urine Ketones 1+ H (Negative) Urine Blood Negative (Negative) Urine Nitrite Negative (Negative) Urine Bilirubin Negative (Negative) Urine Urobilinogen Negative (Negative) Ur Leukocyte Esterase Negative (Negative) Urine WBC (Auto) 5-10 H (0-5) /hpf Urine RBC (Auto) 0-4 (0-4) /hpf U Hyaline Cast (Auto) 0 (0-5) /lpf U Epithel Cells (Auto) 0-5 (0-5) /lpf Urine Bacteria (Auto) 3+ H (Negative) COVID-19 Eval Order SARS-CoV-2, RNA, NAAT (NEGATIVE) Blood Type Antibody Screen 04/29/20 04/29/20 04/29/20 Range/Units 18:37 18:46 19:15 WBC (4.8-10.8) K/uL RBC (4.2-5.4) M/uL Hgb (12.0-16.0) g/dL POC Hgb 12.2 (12.0-16.0) g/dl Hct (37-47) % POC Hct 36 L (37-47) % MCV (80-100) fL MCH (25-34) pg MCHC (32-36) g/dL RDW Std Deviation (36.4-46.3) fL RDW Coeff of Luis E (11.5-14.5) % Plt Count (130-400) K/uL MPV (7.4-10.4) fL Immature Gran % (Auto) % Neut % (Auto) % Lymph % (Auto) % [place] % (Auto) % Eos % (Auto) % Baso % (Auto) % Neut # (Auto) (1.4-6.5) K/uL Lymph # (Auto) (1.2-3.4) K/uL [place] # (Auto) (0.11-0.59) K/uL Eos # (Auto) (0-0.5) K/uL Baso # (Auto) (0-0.2) K/uL Immature Gran # (Auto) (0.00-0.02) K/uL ESR 54 H (0-21) mm/hr D-Dimer (0-500) ug/L FEU VBG pH (7.36-7.41) VBG pCO2 (38-50) mmHg VBG pO2 mmHg VBG HCO3 mmol/L VBG O2 Saturation % VBG Base Excess mEq/L Barometric Pressure mm/Hg POC Sodium 135 (135-144) mmol/L Sodium (136-145) mmol/L POC Potassium 6.5 H* (3.3-5.0) mmol/L Potassium (3.5-5.1) mmol/L POC Chloride 105 (101-112) mmol/L Chloride (98-107) mmol/L Carbon Dioxide (21-32) mmol/L POC Total CO2 25 (24-31) mmol/L Anion Gap (3-11) POC Anion Gap 13.0 L (16-25) mmol/L POC BUN 53 H (7-18) mg/dl BUN (7-18) mg/dl Creatinine (0.6-1.2) mg/dl POC Creatinine 1.1 (0.6-1.3) mg/dl Est Cr Clr Drug Dosing Est GFR ( Amer) Est GFR (Non-Af Amer) BUN/Creatinine Ratio (10-20) Glucose (70-99) mg/dl POC Glucose (70-99) mg/dl POC Glucose (other) 470 H* (70-99) mg/dl Calcium (8.5-10.1) mg/dl POC Ioniz Calcium [place] 1.08 L (1.12-1.32) mmol/l Ferritin (8-388) ng/ml Total Bilirubin (0.2-1) mg/dl AST (15-37) U/L ALT (12-78) U/L Alkaline Phosphatase (45-117) U/L Lactate Dehydrogenase (84-246) U/L Total Creatine Kinase (26-192) U/L Troponin I (0-0.045) ng/ml C-Reactive Protein (0-0.29) mg/dl Total Protein (6.4-8.2) gm/dl Albumin (3.4-5.0) gm/dl Globulin (2.5-4.0) gm/dl Albumin/Globulin Ratio (0.9-2) Beta-Hydroxybutyric Acd (0.2-2.81) mg/dl TSH (0.300-4.500) uIu/ml Specimen Hemolysis Urine Color Urine Appearance (Clear) Urine pH (4.5-7.5) Ur Specific [place] (1.000-1.030) Urine Protein (Negative) Urine Glucose (UA) (Negative) Urine Ketones (Negative) Urine Blood (Negative) Urine Nitrite (Negative) Urine Bilirubin (Negative) Urine Urobilinogen (Negative) Ur Leukocyte Esterase (Negative) Urine WBC (Auto) (0-5) /hpf Urine RBC (Auto) (0-4) /hpf U Hyaline Cast (Auto) (0-5) /lpf U Epithel Cells (Auto) (0-5) /lpf Urine Bacteria (Auto) (Negative) COVID-19 Eval Order Covid19 IDNow [facility] SARS-CoV-2, RNA, NAAT (NEGATIVE) Blood Type Antibody Screen 04/29/20 04/29/20 04/29/20 Range/Units 19:15 20:16 21:09 WBC (4.8-10.8) K/uL RBC (4.2-5.4) M/uL Hgb (12.0-16.0) g/dL POC Hgb (12.0-16.0) g/dl Hct (37-47) % POC Hct (37-47) % MCV (80-100) fL MCH (25-34) pg MCHC (32-36) g/dL RDW Std Deviation (36.4-46.3) fL RDW Coeff of Luis E (11.5-14.5) % Plt Count (130-400) K/uL MPV (7.4-10.4) fL Immature Gran % (Auto) % Neut % (Auto) % Lymph % (Auto) % [place] % (Auto) % Eos % (Auto) % Baso % (Auto) % Neut # (Auto) (1.4-6.5) K/uL Lymph # (Auto) (1.2-3.4) K/uL [place] # (Auto) (0.11-0.59) K/uL Eos # (Auto) (0-0.5) K/uL Baso # (Auto) (0-0.2) K/uL Immature Gran # (Auto) (0.00-0.02) K/uL ESR (0-21) mm/hr D-Dimer (0-500) ug/L FEU VBG pH (7.36-7.41) VBG pCO2 (38-50) mmHg VBG pO2 mmHg VBG HCO3 mmol/L VBG O2 Saturation % VBG Base Excess mEq/L Barometric Pressure mm/Hg POC Sodium (135-144) mmol/L Sodium (136-145) mmol/L POC Potassium (3.3-5.0) mmol/L Potassium (3.5-5.1) mmol/L POC Chloride (101-112) mmol/L Chloride (98-107) mmol/L Carbon Dioxide (21-32) mmol/L POC Total CO2 (24-31) mmol/L Anion Gap (3-11) POC Anion Gap (16-25) mmol/L POC BUN (7-18) mg/dl BUN (7-18) mg/dl Creatinine (0.6-1.2) mg/dl POC Creatinine (0.6-1.3) mg/dl Est Cr Clr Drug Dosing Est GFR ( Amer) Est GFR (Non-Af Amer) BUN/Creatinine Ratio (10-20) Glucose (70-99) mg/dl POC Glucose 362 H* (70-99) mg/dl POC Glucose (other) (70-99) mg/dl Calcium (8.5-10.1) mg/dl POC Ioniz Calcium [place] (1.12-1.32) mmol/l Ferritin (8-388) ng/ml Total Bilirubin (0.2-1) mg/dl AST (15-37) U/L ALT (12-78) U/L Alkaline Phosphatase (45-117) U/L Lactate Dehydrogenase (84-246) U/L Total Creatine Kinase (26-192) U/L Troponin I (0-0.045) ng/ml C-Reactive Protein (0-0.29) mg/dl Total Protein (6.4-8.2) gm/dl Albumin (3.4-5.0) gm/dl Globulin (2.5-4.0) gm/dl Albumin/Globulin Ratio (0.9-2) Beta-Hydroxybutyric Acd (0.2-2.81) mg/dl TSH (0.300-4.500) uIu/ml Specimen Hemolysis Urine Color Urine Appearance (Clear) Urine pH (4.5-7.5) Ur Specific [place] (1.000-1.030) Urine Protein (Negative) Urine Glucose (UA) (Negative) Urine Ketones (Negative) Urine Blood (Negative) Urine Nitrite (Negative) Urine Bilirubin (Negative) Urine Urobilinogen (Negative) Ur Leukocyte Esterase (Negative) Urine WBC (Auto) (0-5) /hpf Urine RBC (Auto) (0-4) /hpf U Hyaline Cast (Auto) (0-5) /lpf U Epithel Cells (Auto) (0-5) /lpf Urine Bacteria (Auto) (Negative) COVID-19 Eval Order SARS-CoV-2, RNA, NAAT POSITIVE A* (NEGATIVE) Blood Type B Positive Antibody Screen NEGATIVE 04/29/20 04/29/20 04/29/20 Range/Units 21:09 21:09 21:09 WBC (4.8-10.8) K/uL RBC (4.2-5.4) M/uL Hgb (12.0-16.0) g/dL POC Hgb (12.0-16.0) g/dl Hct (37-47) % POC Hct (37-47) % MCV (80-100) fL MCH (25-34) pg MCHC (32-36) g/dL RDW Std Deviation (36.4-46.3) fL RDW Coeff of Luis E (11.5-14.5) % Plt Count (130-400) K/uL MPV (7.4-10.4) fL Immature Gran % (Auto) % Neut % (Auto) % Lymph % (Auto) % [place] % (Auto) % Eos % (Auto) % Baso % (Auto) % Neut # (Auto) (1.4-6.5) K/uL Lymph # (Auto) (1.2-3.4) K/uL [place] # (Auto) (0.11-0.59) K/uL Eos # (Auto) (0-0.5) K/uL Baso # (Auto) (0-0.2) K/uL Immature Gran # (Auto) (0.00-0.02) K/uL ESR (0-21) mm/hr D-Dimer 1120 H* (0-500) ug/L FEU VBG pH (7.36-7.41) VBG pCO2 (38-50) mmHg VBG pO2 mmHg VBG HCO3 mmol/L VBG O2 Saturation % VBG Base Excess mEq/L Barometric Pressure mm/Hg POC Sodium (135-144) mmol/L Sodium (136-145) mmol/L POC Potassium (3.3-5.0) mmol/L Potassium (3.5-5.1) mmol/L POC Chloride (101-112) mmol/L Chloride (98-107) mmol/L Carbon Dioxide (21-32) mmol/L POC Total CO2 (24-31) mmol/L Anion Gap (3-11) POC Anion Gap (16-25) mmol/L POC BUN (7-18) mg/dl BUN (7-18) mg/dl Creatinine (0.6-1.2) mg/dl POC Creatinine (0.6-1.3) mg/dl Est Cr Clr Drug Dosing Est GFR ( Amer) Est GFR (Non-Af Amer) BUN/Creatinine Ratio (10-20) Glucose (70-99) mg/dl POC Glucose (70-99) mg/dl POC Glucose (other) (70-99) mg/dl Calcium (8.5-10.1) mg/dl POC Ioniz Calcium [place] (1.12-1.32) mmol/l Ferritin 84.1 (8-388) ng/ml Total Bilirubin (0.2-1) mg/dl AST (15-37) U/L ALT (12-78) U/L Alkaline Phosphatase (45-117) U/L Lactate Dehydrogenase 234 (84-246) U/L Total Creatine Kinase (26-192) U/L Troponin I (0-0.045) ng/ml C-Reactive Protein 9.14 H (0-0.29) mg/dl Total Protein (6.4-8.2) gm/dl Albumin (3.4-5.0) gm/dl Globulin (2.5-4.0) gm/dl Albumin/Globulin Ratio (0.9-2) Beta-Hydroxybutyric Acd 11.68 H (0.2-2.81) mg/dl TSH (0.300-4.500) uIu/ml Specimen Hemolysis Urine Color Urine Appearance (Clear) Urine pH (4.5-7.5) Ur Specific [place] (1.000-1.030) Urine Protein (Negative) Urine Glucose (UA) (Negative) Urine Ketones (Negative) Urine Blood (Negative) Urine Nitrite (Negative) Urine Bilirubin (Negative) Urine Urobilinogen (Negative) Ur Leukocyte Esterase (Negative) Urine WBC (Auto) (0-5) /hpf Urine RBC (Auto) (0-4) /hpf U Hyaline Cast (Auto) (0-5) /lpf U Epithel Cells (Auto) (0-5) /lpf Urine Bacteria (Auto) (Negative) COVID-19 Eval Order SARS-CoV-2, RNA, NAAT (NEGATIVE) Blood Type Antibody Screen 04/29/20 Range/Units 21:09 WBC (4.8-10.8) K/uL RBC (4.2-5.4) M/uL Hgb (12.0-16.0) g/dL POC Hgb (12.0-16.0) g/dl Hct (37-47) % POC Hct (37-47) % MCV (80-100) fL MCH (25-34) pg MCHC (32-36) g/dL RDW Std Deviation (36.4-46.3) fL RDW Coeff of Luis E (11.5-14.5) % Plt Count (130-400) K/uL MPV (7.4-10.4) fL Immature Gran % (Auto) % Neut % (Auto) % Lymph % (Auto) % [place] % (Auto) % Eos % (Auto) % Baso % (Auto) % Neut # (Auto) (1.4-6.5) K/uL Lymph # (Auto) (1.2-3.4) K/uL [place] # (Auto) (0.11-0.59) K/uL Eos # (Auto) (0-0.5) K/uL Baso # (Auto) (0-0.2) K/uL Immature Gran # (Auto) (0.00-0.02) K/uL ESR (0-21) mm/hr D-Dimer (0-500) ug/L FEU VBG pH 7.30 L (7.36-7.41) VBG pCO2 55 H (38-50) mmHg VBG pO2 26 mmHg VBG HCO3 27 mmol/L VBG O2 Saturation < 60.0 % VBG Base Excess -0.4 mEq/L Barometric Pressure 735.3 mm/Hg POC Sodium (135-144) mmol/L Sodium (136-145) mmol/L POC Potassium (3.3-5.0) mmol/L Potassium (3.5-5.1) mmol/L POC Chloride (101-112) mmol/L Chloride (98-107) mmol/L Carbon Dioxide (21-32) mmol/L POC Total CO2 (24-31) mmol/L Anion Gap (3-11) POC Anion Gap (16-25) mmol/L POC BUN (7-18) mg/dl BUN (7-18) mg/dl Creatinine (0.6-1.2) mg/dl POC Creatinine (0.6-1.3) mg/dl Est Cr Clr Drug Dosing Est GFR ( Amer) Est GFR (Non-Af Amer) BUN/Creatinine Ratio (10-20) Glucose (70-99) mg/dl POC Glucose (70-99) mg/dl POC Glucose (other) (70-99) mg/dl Calcium (8.5-10.1) mg/dl POC Ioniz Calcium [place] (1.12-1.32) mmol/l Ferritin (8-388) ng/ml Total Bilirubin (0.2-1) mg/dl AST (15-37) U/L ALT (12-78) U/L Alkaline Phosphatase (45-117) U/L Lactate Dehydrogenase (84-246) U/L Total Creatine Kinase (26-192) U/L Troponin I (0-0.045) ng/ml C-Reactive Protein (0-0.29) mg/dl Total Protein (6.4-8.2) gm/dl Albumin (3.4-5.0) gm/dl Globulin (2.5-4.0) gm/dl Albumin/Globulin Ratio (0.9-2) Beta-Hydroxybutyric Acd (0.2-2.81) mg/dl TSH (0.300-4.500) uIu/ml Specimen Hemolysis Urine Color Urine Appearance (Clear) Urine pH (4.5-7.5) Ur Specific [place] (1.000-1.030) Urine Protein (Negative) Urine Glucose (UA) (Negative) Urine Ketones (Negative) Urine Blood (Negative) Urine Nitrite (Negative) Urine Bilirubin (Negative) Urine Urobilinogen (Negative) Ur Leukocyte Esterase (Negative) Urine WBC (Auto) (0-5) /hpf Urine RBC (Auto) (0-4) /hpf U Hyaline Cast (Auto) (0-5) /lpf U Epithel Cells (Auto) (0-5) /lpf Urine Bacteria (Auto) (Negative) COVID-19 Eval Order SARS-CoV-2, RNA, NAAT (NEGATIVE) Blood Type Antibody Screen Imaging Data Attestation: I personally reviewed and interpreted this imaging study as follows: Radiologist's Impression: [facility], [phone] XRay Report Patient: IRA SHEEHAN Date: 04/29/20MR#: [id number]: [id number] [id number]: Date: 1935[facility] Zip: [place] [id number]: [id number]: EDSex: FRoom/Bed:Att Phy:Diagnosis: URINARY SX, HYPERGLYCEMIAPri Phy: Jair Wren III, MDService Date: 04/29/20Fam Phy:Interpreting Phy: Serg Aguilar MDAdmit Phy: Ordering Phy: Krunal Li MD cc: ~ XR chest 1V portable HISTORY: weakness COMPARISON: Chest 02/28/2019. FINDINGS: The heart remains mildly enlarged. Retrocardiac density likely represents a hiatus hernia. This is nonsignificant change. There is mild interstitial thickening which is likely chronic. No new focal lung consolidations to suggest pneumonia. No evidence for pulmonary edema. Advanced degenerative changes within the shoulders. Postoperative changes within the right humerus are again noted. IMPRESSION: Stable cardiomegaly and mild chronic interstitial thickening. No acute process within the chest ACT 112: Negative or not required by law. Electronically signed by: Serg Aguilar M.D. 04/29/2020 7:12 PM Dictated: 04/29/201908Transcribed: 04/29/201908 [facility], [phone] CT Scan Report Patient: IRA SHEEHAN Date: 04/29/20#: [id number]: [id number] ID:[id number]: Date: 1935[facility] Zip: [place] [id number]: 84Location: EDSex: FRoom/Bed:Att Phy:Diagnosis: URINARY SX, HYPERGLYCEMIAPri Phy: Jair Wren III, MDService Date: 04/29/20Fam Phy:Interpreting Phy: [facility]erg Aguilar [facility]: Ordering Phy: Krunal Li MD cc: ~ HEAD CT NONCONTRAST CT DOSE: 609.72 mGycm HISTORY: Altered mental status. TECHNIQUE: Multiaxial CT images of the head were performed without the use of intravenous contrast. Automated exposure control was utilized for this study. A dose lowering technique was utilized adhering to the principles of ALARA. Comparison: Head CT 02/28/2019. Findings: Small retention cyst within the right maxillary sinus, unchanged. The mastoid air cells are clear. The calvarium and skull base are intact. There is no mass, hematoma, midline shift, acute infarct. White matter hypodensity is nonspecific but suggestive of microvascular ischemic change. The ventricles and sulci demonstrate mild age-related involutional changes. Impression: No acute intracranial abnormality. Atrophy and microvascular ischemic changes. ACT 112: Negative or not required by law. Electronically signed by: Serg Aguilar M.D. 04/29/2020 7:06 PM Dictated: 04/29/201899Transcribed: 04/29/201899 ECG Data Attestation: I personally reviewed and interpreted this ECG as follows: Indication: + chest pain Rate (beats per minute): 104 Rhythm: + normal sinus ECG Intervals/blocks: + Left bundle branch block ECG [place]: + Left axis deviation ECG ST segments: no ST depression and no ST elevation Comparison ECG Date: from (02/28/2019) Change: no significant change MDM Narrative Patient was seen and evaluated as above in room B4. Review was performed of nursing notes and vital signs. I did review pertinent previous visits and patient history. After obtaining a thorough history and physical examination the above work up was performed. This is an 84-year-old female who presents the emergency department completely altered. The patient fights off any attempts to start an IV based on this I strongly suggested to the son that the patient be sedated if he wants us to have her all checked out. I did go over the risks and benefits of sedation an older patient however the patient's son agrees to the sedation to protect the nurses from being hit. Patient was found to have grossly elevated glucose and therefore was started on insulin drip she is Covid positive she was also started on Decadron. I did discuss the case with the hospitalist service who did agree to admit the patient. An order was placed for continuous cardiac monitoring. The monitor shows a rate of 86 with Normal Sinus rhythm. The patient was evaluated during a period of high volume and high acuity while the hospital was at overcapacity during the global COVID-19 pandemic, and that diagnosis was suspected/considered upon their initial presentation. Their evaluation, treatment and testing was consistent with current guidelines for patients who present with complaints or symptoms that may be related to COVID- 19. Impression & Plan COVID-19, Dementia, Acute kidney injury, Acute UTI, Acute hyperglycemia Discharge Plan Visit Data Chief Complaint: Urinary Symptoms Stated Complaint: URINARY SX, HYPERGLYCEMIA ED Provider: Krunal Li Discharge Problem: COVID-19, Dementia, Acute kidney injury, Acute UTI, Acute hyperglycemia Patient Disposition: Admitted As Inpatient Discharge Instructions Interventions: ED Discharge Assessment Last Done: 04/29/20 22:31 Discharge Problem: Dementia Qualifiers: Dementia type: unspecified type Dementia behavioral disturbance: with behavioral disturbance Qualified Code(s): F03.91 - Unspecified dementia with behavioral disturbance
[2020-04-29 18:14] LABS: Appearance Urine Clear (Clear); Bacteria Urine Automated 3+ (Negative); Bilirubin Urine Negative (Negative); Blood Urine Negative (Negative); Cast Urine Automated 0 /lpf (0-5); Color Urine Yellow; Epithelial Cell Urine Auto 0-5 /lpf (0-5); Glucose Urine UA 3+ (Negative); Ketones Urine 1+ (Negative); Leukocyte Esterase Urine Negative (Negative); Nitrite Urine Negative (Negative); Protein Urine Trace (Negative); RBC Urine Automated 0-4 /hpf (0-4); Specific Gravity Urine 1.022 (1.000-1.030); Urobilinogen Urine Negative (Negative)
[2020-04-29] MEDS ORDERED: cefTRIAXone SODIUM 2,000 MG/70 ML BAG IV STA (18:34)
[2020-04-29 18:53] LABS: Hematocrit (blood only) 37.1 % (37-47); Hemoglobin 11.9 g/dL (12.0-16.0); Immature Granulocytes # (auto) 0.01 K/uL (0.00-0.02); Immature Granulocytes % (auto) 0.3 %; Lymphocytes # (auto) 0.56 K/uL (1.2-3.4); Mean Corpuscular Hemoglobin 28.9 pg (25-34); Mean Corpuscular Hgb Conc 32.1 g/dL (32-36); Mean Platelet Volume 10.6 fL (7.4-10.4); Monocytes # (auto) 0.17 K/uL (0.11-0.59); Monocytes % (auto) 5.2 %; Neutrophils # (auto) 2.56 K/uL (1.4-6.5); Neutrophils % (auto) 77.5 %; Platelet Count 125 K/uL (130-400); RDW Coefficient of Variation 13.2 % (11.5-14.5); RDW Standard Deviation 43.9 fL (36.4-46.3); Red Blood Count 4.12 M/uL (4.2-5.4)
[2020-04-29] MEDS ORDERED: NovoLIN-R INSULIN PER UNIT CHARGE IV STA (18:57)
[2020-04-29 19:01] LABS: iSTAT Creatinine 1.1 mg/dl (0.6-1.3); iSTAT Hemoglobin 12.2 g/dl (12.0-16.0); iSTAT Ionized Calcium 1.08 mmol/l (1.12-1.32); iSTAT Potassium 6.5 mmol/L (3.3-5.0)
--- NOTE | 2020-04-29 19:07 | CT Scan Report ---
HEAD CT NONCONTRAST CT DOSE: 609.72 mGycm HISTORY: Altered mental status. TECHNIQUE: Multiaxial CT images of the head were performed without the use of intravenous contrast. A utomated exposure control was utilized for this study. A dose lowering technique was utilized adheri ng to the principles of ALARA. Comparison: Head CT 02/28/2019. Findings: Small retention cyst within the right maxillary sinus, unchanged. The mastoid air cells are clear. The calvarium and skull base are intact. There is no mass, hematoma, midline shift, acute inf arct. White matter hypodensity is nonspecific but suggestive of microvascular ischemic change. The ve ntricles and sulci demonstrate mild age-related involutional changes. Impression: No acute intracranial abnormality. Atrophy and microvascular ischemic changes. ACT 112: Negative or not required by law. Electronically signed by: Serg Aguilar M.D. 04/29/2020 7:06 PM
--- NOTE | 2020-04-29 19:14 | XRay Report ---
XR chest 1V portable HISTORY: weakness COMPARISON: Chest 02/28/2019. FINDINGS: The heart remains mildly enlarged. Retrocardiac density likely represents a hiatus hernia. This is nonsignificant change. There is mild interstitial thickening which is likely chronic. No new focal lung consolidations to suggest pneumonia. No evidence for pulmonary edema. Advanced degenerativ e changes within the shoulders. Postoperative changes within the right humerus are again noted. IMPRESSION: Stable cardiomegaly and mild chronic interstitial thickening. No acute process within the chest ACT 112: Negative or not required by law. Electronically signed by: Serg Aguilar M.D. 04/29/2020 7:12 PM
[2020-04-29 19:40] LABS: Alanine Aminotransferase 20 U/L (12-78); Albumin Globulin Ratio 0.7 (0.9-2); Albumin Level 2.9 gm/dl (3.4-5.0); Alkaline Phosphatase 55 U/L (45-117); Aspartate Aminotransferase 26 U/L (15-37); BUN Creatinine Ratio 28.9 (10-20); Bilirubin,Total 0.8 mg/dl (0.2-1); Blood Urea Nitrogen 43 mg/dl (7-18); Calcium 8.7 mg/dl (8.5-10.1); Carbon Dioxide 25 mmol/L (21-32); Chloride 105 mmol/L (98-107); Creatine Kinase 250 U/L (26-192); Est GFR (African American) 36.7; Est GFR (Non-African American) 31.7; Globulin 4.3 gm/dl (2.5-4.0); Glucose 450 mg/dl (70-99); Potassium 5.6 mmol/L (3.5-5.1); Sodium 138 mmol/L (136-145); Total Protein 7.2 gm/dl (6.4-8.2); Troponin I 0.068 ng/ml (0-0.045)
[2020-04-29] MEDS ORDERED: DEXAMETHASONE SOD INJ 4 MG/ML VIAL IV STA (19:45)
[2020-04-29] MEDS ORDERED: GLUCOSE 10 TABS/TUBE PO PRN (20:00)
[2020-04-29] MEDS ORDERED: CARBOHYDRATES FOR HYPOGLYCEMIA PO PRN (20:00)
[2020-04-29] MEDS ORDERED: GLUCOSE 40% GEL 15 GM TUBE PO PRN (20:00)
[2020-04-29] MEDS ORDERED: INSULIN REGULAR 250 UNITS in SODIUM CHLORIDE 0.9% 247.5 ML IV SCH (20:00)
[2020-04-29] MEDS ORDERED: GLUCAGON FOR INJ 1 MG VIAL IM PRN (20:00)
[2020-04-29] MEDS ORDERED: DEXTROSE 50% 50 ML SYRINGE IV PRN (20:00)
[2020-04-29] MEDS ORDERED: INSULIN ASPART 100 UNITS/ML 3 ML PEN SC SCH (21:00)
[2020-04-29 21:20] LABS: Base Excess VBG -0.4 mEq/L; HCO3 VBG 27 mmol/L; Oxygen Saturation VBG < 60.0 %; PCO2 VBG 55 mmHg (38-50); PO2 VBG 26 mmHg
[2020-04-29 21:38] LABS: Beta-Hydroxybutyrate 11.68 mg/dl (0.2-2.81); C Reactive Protein 9.14 mg/dl (0-0.29); Ferritin 84.1 ng/ml (8-388)
[2020-04-29 21:50] LABS: D Dimer 1120 ug/L FEU (0-500)
--- NOTE | 2020-04-29 22:18 | History & Physical Report ---
Date of Service April 29, 2020 Assessment & Plan (1) Pneumonia due to COVID-19 virus: Pneumonia due to COVID-19 virus with hypoxia- Pulse ox recorded as a low of 90% on room air. Decadron 6 mg IV every morning Remdesivir IV per protocol Zinc sulfate 220 mg p.o. every morning Ceftriaxone 1 g IV daily Doxycycline milligrams IV every 12 hours Ventolin HFA 2 puffs 4 times daily, and every 2 hours as needed Nasal cannula oxygen, titrate to keep pulse ox around 95% Present on Admission?: Yes (2) Hypoxia: See above Present on Admission?: Yes (3) Acute UTI: Follow urine culture and sensitivity. Ceftriaxone 1 g IV daily and doxycycline 100 mg IV every 12 hours to cover previous infections with E. coli and staph aureus Present on Admission?: Yes (4) Acute kidney injury superimposed on CKD: Creatinine 1.5 upon admission. Placed on normal saline at 100 mils per hour. Repeat laboratories in a.m. Present on Admission?: Yes (5) Agitated: Agitation/confusion/underlying dementia- Likely due to combination of COVID-19 pneumonia, urinary tract infection And dehydration. Continue aspirin, and quetiapine Treat all 3 as above, and follow response Present on Admission?: Yes (6) Confusion: See above Present on Admission?: Yes (7) Dementia: See above Present on Admission?: Yes (8) Diabetes: Glucose 450 upon admission. She was given 10 units of regular insulin IV by the ED, which brought her sugar down into the mid 200s. Glycemic consult to help control blood sugars, as expected increase while on dexamethasone. Hold her usual dosing of 70/30 Present on Admission?: Yes (9) Elevated troponin I level: Troponin was 0.068 upon admission. The patient will be admitted to telemetry for serial cardiac enzymes, serial EKG's, cardiac rhythm monitoring. Likely type II ID, supply demand mismatch Present on Admission?: Yes History of Present Illness Chief Complaint: The patient is brought to the emergency department by her son due to his concerns regarding the patient having acute confusion. Primary Care Provider: Jair Wren MD The patient is an 84-year-old female with a past medical history including cellulitis, T11 vertebral close fracture, ventral hernia, osteoporosis, anxiety, GERD, acute kidney injury superimposed on chronic kidney disease, facial contusion, acute cholecystitis, type 2 diabetes mellitus with diabetic neuropathy, diabetic retinopathy, insulin requiring or dependent type 2 diabetes mellitus, and dementia. The patient was brought to the emergency department by her son, and upon arrival to emergency department the patient continually screamed, and was difficult for anyone to touch her. The son reports that the patient is not been eating or drinking over the past 2 days and last evening he could not get her out of her chair. She was also noted when at home and being approached by family members that she would just scream. The patient's family notes that her urine smells strong, and is concerned about a urinary tract infection. Allergies Allergy/AdvReac Type Severity Reaction Status Date / Time No Known Allergies Allergy Unknown Verified 04/29/20 18:20 Home Medications Medication Instructions Recorded Confirmed Type aspirin 81 mg PO QAM 08/11/18 04/29/20 History calcium carbonate [Calcium 600] 600 mg PO QAM 02/28/19 04/29/20 History acetaminophen 500 mg tablet 1,000 mg PO Q8 PRN tab 04/01/19 04/29/20 History walker #1 ea 04/06/19 07/14/19 Rx cholecalciferol (vitamin D3) 2,000 units PO QAM 07/14/19 04/29/20 History docusate sodium 100 mg PO QAM 07/14/19 04/29/20 History multivit,stress formula-zinc 1 tab PO HS 07/14/19 04/29/20 History [Stress Formula with Zinc] sennosides 8.6 mg PO DAILY 07/14/19 04/29/20 History omeprazole 20 mg capsule,delayed 20 mg PO QAM #90 cap 07/27/19 04/29/20 Rx release quetiapine 50 mg tablet 50 mg PO HS #30 tab 10/11/19 04/29/20 Rx blood sugar diagnostic #400 ea 02/09/20 Rx insulin human U-100 NPH-regulr 1 sliding scale dose SUBCUT 02/09/20 04/29/20 Rx 70-30 mix 100 unit/mL subcutaneous USEASDIRECTD #40 ml susp insulin syringe-needle U-100 0.3 #200 ea 02/13/20 Rx mL 31 gauge x 5/16" nystatin-triamcinolone 100,000 1 applic TOP BID #30 gm 04/05/20 04/29/20 Rx unit/g-0.1 % topical cream lorazepam 0.5 mg tablet 0.5 mg PO QAM #30 tab 04/19/20 04/29/20 Rx Past Med/Surg History Medical History (Updated 04/30/20 @ 04:24 by Dorian Barker MD) Dementia Diabetes Surgical History History of cholecystectomy History of ventral hernia repair Family History Father Diabetes Brother Diabetes Aunt Diabetes Mother Hypertension Social History Smoking Status: Never smoker Hx Alcohol Use: No Hx Substance Use: No Preferred Language: Danish Communication Ability: Effective Fire Control Technician B Required: No Beliefs That Will Affect Care: None Current Living Situation: Family Current Living Situation Comment: son Feels Safe at Home: Yes Assistive Devices: None Review of Systems Review of Systems: Unobtainable due to cognitive status Physical Exam Physical Exam: The patient is awake, intermittently screams, normocephalic and atraumatic, lying in bed and in otherwise no acute distress. HEENT--PERRL, EOMI, mucous membranes and oropharynx dry. Neck--supple. No JVD. No bruits. Thyroid normal, trachea midline, no adenopathy. Heart--normal S1 and S2. No murmurs, rubs or gallops. Lungs--clear bilaterally, no respiratory distress, no accessory muscle use. Abdomen--normal bowel sounds and soft. Nontender. Nondistended, no hernias or masses, no organomegaly. Extremities--no cyanosis or clubbing. No edema. Dermatologic--skin appears dry. Neurologic--cranial nerves II through XII grossly intact. Rheumatologic--limited exam Psychiatric--agitation. Results & Data Results & Data ([facility]) Vital Signs (Past 12 Hours) Vital Signs Temp Pulse Pulse Resp BP BP Pulse Ox 04/29/20 21:47 87/68 L 04/29/20 20:25 64 18 99 04/29/20 19:19 18 161/109 H 04/29/20 17:29 100 04/29/20 16:47 99.5 F 78 16 161/46 H 93 Laboratory Results Laboratory Results WBC 3.30 K/uL (4.8-10.8) L 04/29/20 18:37 RBC 4.12 M/uL (4.2-5.4) L 04/29/20 18:37 Hgb 11.9 g/dL (12.0-16.0) L 04/29/20 18:37 POC Hgb 12.2 g/dl (12.0-16.0) 04/29/20 18:46 Hct 37.1 % (37-47) 04/29/20 18:37 POC Hct 36 % (37-47) L 04/29/20 18:46 MCV 90.0 fL (80-100) 04/29/20 18:37 MCH 28.9 pg (25-34) 04/29/20 18:37 MCHC 32.1 g/dL (32-36) 04/29/20 18:37 RDW Std Deviation 43.9 fL (36.4-46.3) 04/29/20 18:37 RDW Coeff of Luis E 13.2 % (11.5-14.5) 04/29/20 18:37 Plt Count 125 K/uL (130-400) L 04/29/20 18:37 MPV 10.6 fL (7.4-10.4) H 04/29/20 18:37 Immature Gran % (Auto) 0.3 % 04/29/20 18:37 Neut % (Auto) 77.5 % 04/29/20 18:37 Lymph % (Auto) 17.0 % 04/29/20 18:37 Ida % (Auto) 5.2 % 04/29/20 18:37 Eos % (Auto) 0.0 % 04/29/20 18:37 Baso % (Auto) 0.0 % 04/29/20 18:37 Neut # (Auto) 2.56 K/uL (1.4-6.5) 04/29/20 18:37 Lymph # (Auto) 0.56 K/uL (1.2-3.4) L 04/29/20 18:37 Ida # (Auto) 0.17 K/uL (0.11-0.59) 04/29/20 18:37 Eos # (Auto) 0.00 K/uL (0-0.5) 04/29/20 18:37 Baso # (Auto) 0.00 K/uL (0-0.2) 04/29/20 18:37 Immature Gran # (Auto) 0.01 K/uL (0.00-0.02) 04/29/20 18:37 ESR 54 mm/hr (0-21) H 04/29/20 18:37 D-Dimer 1120 ug/L FEU (0-500) H* 04/29/20 21:09 VBG pH 7.30 (7.36-7.41) L 04/29/20 21:09 VBG pCO2 55 mmHg (38-50) H 04/29/20 21:09 VBG pO2 26 mmHg 04/29/20 21:09 VBG HCO3 27 mmol/L 04/29/20 21:09 VBG O2 Saturation < 60.0 % 04/29/20 21:09 VBG Base Excess -0.4 mEq/L 04/29/20 21:09 Barometric Pressure 735.3 mm/Hg 04/29/20 21:09 POC Sodium 135 mmol/L (135-144) 04/29/20 18:46 Sodium 138 mmol/L (136-145) 04/29/20 18:37 POC Potassium 6.5 mmol/L (3.3-5.0) H* 04/29/20 18:46 Potassium 5.6 mmol/L (3.5-5.1) H 04/29/20 18:37 POC Chloride 105 mmol/L (101-112) 04/29/20 18:46 Chloride 105 mmol/L (98-107) 04/29/20 18:37 Carbon Dioxide 25 mmol/L (21-32) 04/29/20 18:37 POC Total CO2 25 mmol/L (24-31) 04/29/20 18:46 Anion Gap 9.0 (3-11) 04/29/20 18:37 POC Anion Gap 13.0 mmol/L (16-25) L 04/29/20 18:46 POC BUN 53 mg/dl (7-18) H 04/29/20 18:46 BUN 43 mg/dl (7-18) H 04/29/20 18:37 Creatinine 1.50 mg/dl (0.6-1.2) H 04/29/20 18:37 POC Creatinine 1.1 mg/dl (0.6-1.3) 04/29/20 18:46 Est Cr Clr Drug Dosing Not Reportable 04/29/20 18:37 Est GFR ( Amer) 36.7 04/29/20 18:37 Est GFR (Non-Af Amer) 31.7 04/29/20 18:37 BUN/Creatinine Ratio 28.9 (10-20) H 04/29/20 18:37 Glucose 450 mg/dl (70-99) H* 04/29/20 18:37 POC Glucose 280 mg/dl (70-99) H 04/30/20 04:07 POC Glucose (other) 470 mg/dl (70-99) H* 04/29/20 18:46 Calcium 8.7 mg/dl (8.5-10.1) 04/29/20 18:37 POC Ioniz Calcium [place] 1.08 mmol/l (1.12-1.32) L 04/29/20 18:46 Ferritin 84.1 ng/ml (8-388) 04/29/20 21:09 Total Bilirubin 0.8 mg/dl (0.2-1) 04/29/20 18:37 AST 26 U/L (15-37) 04/29/20 18:37 ALT 20 U/L (12-78) 04/29/20 18:37 Alkaline Phosphatase 55 U/L (45-117) 04/29/20 18:37 Lactate Dehydrogenase 234 U/L (84-246) 04/29/20 21:09 Total Creatine Kinase 250 U/L (26-192) H 04/29/20 18:37 Troponin I 0.068 ng/ml (0-0.045) H* 04/29/20 18:37 C-Reactive Protein 9.14 mg/dl (0-0.29) H 04/29/20 21:09 Total Protein 7.2 gm/dl (6.4-8.2) 04/29/20 18:37 Albumin 2.9 gm/dl (3.4-5.0) L 04/29/20 18:37 Globulin 4.3 gm/dl (2.5-4.0) H 04/29/20 18:37 Albumin/Globulin Ratio 0.7 (0.9-2) L 04/29/20 18:37 Beta-Hydroxybutyric Acd 11.68 mg/dl (0.2-2.81) H 04/29/20 21:09 TSH 1.030 uIu/ml (0.300-4.500) 04/29/20 18:37 Specimen Hemolysis 04/29/20 18:37 Urine Color Yellow 04/29/20 17:05 Urine Appearance Clear (Clear) 04/29/20 17:05 Urine pH 5.0 (4.5-7.5) 04/29/20 17:05 Ur Specific [place] 1.022 (1.000-1.030) 04/29/20 17:05 Urine Protein Trace (Negative) H 04/29/20 17:05 Urine Glucose (UA) 3+ (Negative) H 04/29/20 17:05 Urine Ketones 1+ (Negative) H 04/29/20 17:05 Urine Blood Negative (Negative) 04/29/20 17:05 Urine Nitrite Negative (Negative) 04/29/20 17:05 Urine Bilirubin Negative (Negative) 04/29/20 17:05 Urine Urobilinogen Negative (Negative) 04/29/20 17:05 Ur Leukocyte Esterase Negative (Negative) 04/29/20 17:05 Urine WBC (Auto) 5-10 /hpf (0-5) H 04/29/20 17:05 Urine RBC (Auto) 0-4 /hpf (0-4) 04/29/20 17:05 U Hyaline Cast (Auto) 0 /lpf (0-5) 04/29/20 17:05 U Epithel Cells (Auto) 0-5 /lpf (0-5) 04/29/20 17:05 Urine Bacteria (Auto) 3+ (Negative) H 04/29/20 17:05 COVID-19 Eval Order Covid19 IDNow Replaced by [facility] 04/29/20 19:15 SARS-CoV-2, RNA, NAAT POSITIVE (NEGATIVE) A* 04/29/20 19:15 Blood Type B Positive 04/29/20 21:09 Antibody Screen NEGATIVE 04/29/20 21:09 Diagnostic Findings [facility], [id number] XRay Report Patient: IRA SHEEHAN Date: 04/29/20MR#: [id number]: [id number] ID:[id number]: Date: [address] [place] [address] Zip: [place] [id number]: [id number]: EDSex: FRoom/Bed:Att Phy:Diagnosis: URINARY SX, HYPERGLYCEMIAPri Phy: Jair Wren, III, MDService Date: 04/29/20Fam Phy:Interpreting Phy: Serg Perry Phy: Ordering Phy: Krunal Li MD cc: ~ XR chest 1V portable HISTORY: weakness COMPARISON: Chest 02/28/2019. FINDINGS: The heart remains mildly enlarged. Retrocardiac density likely represents a hiatus hernia. This is nonsignificant change. There is mild interstitial thickening which is likely chronic. No new focal lung consolidation s to suggest pneumonia. No evidence for pulmonary edema. Advanced degenerative changes within the shoulders. Postoperative changes within the right humerus are again noted. IMPRESSION: Stable cardiomegaly and mild chronic interstitial thickening. No acute process within the chest ACT 112: Negative or not required by law. Electronically signed by: Serg Aguilar M.D. 04/29/2020 7:12 PM Dictated: 04/29/201908Transcribed: 04/29/201908 [facility], [id number] CT Scan Report Patient: IRA SHEEHAN Date: 04/29/20#: [id number]: [id number] [facility] ID:[id number]: Date: [address] [place] [address] Zip: [place] [id number]: [id number]: EDSex: FRoom/Bed:Att Phy:Diagnosis: URINARY SX, HYPERGLYCEMIAPri Phy: Jair Wren, III, MDService Date: 04/29/20Fam Phy:Interpreting Phy: Serg Perry Phy: Ordering Phy: Krunal Li MD cc: ~ HEAD CT NONCONTRAST CT DOSE: 609.72 mGycm HISTORY: Altered mental status. TECHNIQUE: Multiaxial CT images of the head were performed without the use of intravenous contrast. Automated exposure control was utilized for this study. A dose lowering technique was utilized adhering to the principles of ALARA. Comparison: Head CT 02/28/2019. Findings: Small retention cyst within the right maxillary sinus, unchanged. The mastoid air cells are clear. The calvarium and skull base are intact. There is no mass, hematoma, midline shift, acute infarct. White matter hypodensity is nonspecific but suggestive of microvascular ischemic change. The ventricles and sulci demonstrate mild age-related involutional changes. Impression: No acute intracranial abnormality. Atrophy and microvascular ischemic changes. ACT 112: Negative or not required by law. Electronically signed by: Serg Aguilar M.D. 04/29/2020 7:06 PM Dictated: 04/29/201899Transcribed: 04/29/201899 Code Status & VTE Plan Code Status Full code VTE Prophylaxis Plan VTE Prophylaxis will be ordered: Yes PG Care Time/CCT Total # of Minutes Spent Total Time Spent with Patient: Total time spent is greater than 50% in coordination of care (as documented) at patient's floor/unit and/or counseling patient: Coding Level of Care Code 07856 Initial Inpt Care Lvl 3 Diagnoses Pneumonia due to COVID-19 virus U07.1; J12.89 Hypoxia R09.02 Acute UTI N39.0 Acute kidney injury superimposed on CKD N17.9; N18.9 Agitated R45.1 Confusion R41.0 Dementia F03.91 Dementia behavioral disturbance: with behavioral disturbance Dementia type: unspecified type Diabetes E11.9 Elevated troponin I level R77.8 (1) Dementia Dementia behavioral disturbance: with behavioral disturbance Dementia type: unspecified type Qualified Code(s): F03.91 - Unspecified dementia with behavioral disturbance
[2020-04-29] MEDS ORDERED: ACETAMINOPHEN 1000 MG/100 ML IV IV PRN (23:01)
[2020-04-29] MEDS ORDERED: ONDANSETRON INJ 2 MG/ML 2 ML VIAL IV PRN (23:01)
[2020-04-29] MEDS ORDERED: POLYETHYLENE (MIRALAX) 17 GM PACK PO PRN (23:01)
[2020-04-29] MEDS ORDERED: PATIENT'S HEIGHT AND/OR WEIGHT NEEDED SCH (23:15)
[2020-04-29] MEDS: ALBUMIN 25% 12.5 GM/50 ML VIAL IV SCH ×3 (23:19→23:57)
[2020-04-29] MEDS: SODIUM CHLORIDE 0.9% 1000ML 1,000 ML IV SCH (23:19)
[2020-04-29] MEDS ORDERED: REMDESIVIR 200 MG in SODIUM CHLORIDE 0.9% 210 ML IV ONE (23:30)
[2020-04-29] MEDS ORDERED: INSULIN HUMAN REGULAR PER UNIT 6 UNITS in SYRINGE 5.94 ML IV ONE (23:45)
[2020-04-29] MEDS ORDERED: PHARMACY GLYCEMIC MGMT CONSULT PRN (23:55)
[2020-04-30] MEDS: DOXYCYCLINE HYCLATE 100 MG in DEXTROSE 5% 100 ML IV SCH ×2 (00:23→11:11)
[2020-04-30] MEDS: SODIUM CHLORIDE 0.9% 10ML FLUSH IV SCH (00:35)
[2020-04-30] MEDS: INSULIN ASPART 100 UNITS/ML 3 ML PEN SC SCH ×6 (00:49→20:00)
[2020-04-30] MEDS ORDERED: INSULIN GLARGINE SOLOSTAR 100 UNITS/ML 3 ML PEN SC ONE (04:45)
[2020-04-30 07:27] LABS: Hematocrit (blood only) 32.5 % (37-47); Hemoglobin 10.4 g/dL (12.0-16.0); Mean Corpuscular Hemoglobin 28.8 pg (25-34); RDW Coefficient of Variation 13.1 % (11.5-14.5); RDW Standard Deviation 43.5 fL (36.4-46.3); Red Blood Count 3.61 M/uL (4.2-5.4); White Blood Count 2.01 K/uL (4.8-10.8)
[2020-04-30 07:30] LABS: INR 1.1 (0.9-1.1); Partial Thromboplastin Time 28.7 Seconds (21.0-31.0); Prothrombin Time 11.2 Seconds (9.0-12.0)
[2020-04-30 07:49] LABS: Immature Granulocytes # (auto) 0.01 K/uL (0.00-0.02); Immature Granulocytes % (auto) 0.5 %; Lymphocytes # (auto) 0.22 K/uL (1.2-3.4); Lymphocytes % (auto) 10.9 %; Mean Platelet Volume 10.7 fL (7.4-10.4); Monocytes # (auto) 0.15 K/uL (0.11-0.59); Monocytes % (auto) 7.5 %; Neutrophils # (auto) 1.63 K/uL (1.4-6.5); Neutrophils % (auto) 81.1 %; Platelet Count 98 K/uL (130-400); Platelet Estimate Decreased (Normal)
[2020-04-30 07:57] LABS: Albumin Level 3.6 gm/dl (3.4-5.0); BUN Creatinine Ratio 29.8 (10-20); Calcium 8.9 mg/dl (8.5-10.1); Creatinine Clr Calc Pharmacy 30.9 ml/min; Est GFR (African American) 48.1; Est GFR (Non-African American) 41.5; Magnesium 1.9 mg/dl (1.8-2.4); Potassium 4.2 mmol/L (3.5-5.1)
[2020-04-30 08:02] LABS: Bilirubin,Total 0.5 mg/dl (0.2-1); Globulin 3.5 gm/dl (2.5-4.0); Total Protein 7.1 gm/dl (6.4-8.2)
[2020-04-30] MEDS: SODIUM CHLORIDE 0.9% 1000ML 1,000 ML IV SCH (08:26)
[2020-04-30] MEDS: LORazepam 0.5 MG TAB PO SCH (09:43)
[2020-04-30] MEDS: DOCUSATE SODIUM 100 MG CAP PO SCH (09:44)
[2020-04-30] MEDS: SENNA 8.6 MG TAB PO SCH (09:44)
[2020-04-30] MEDS: ASPIRIN 81 MG ECTAB PO SCH (09:44)
[2020-04-30] MEDS: NYSTATIN/TRIAMCIN CR 15 GM TUBE EXT SCH ×2 (09:44→21:10)
[2020-04-30] MEDS: CALCIUM 600MG + VIT D 400 IU TAB PO SCH (09:44)
[2020-04-30] MEDS: CHOLECALCIFEROL 1,000 UNITS 25 MCG TAB PO SCH (09:44)
[2020-04-30] MEDS: PANTOprazole 40 MG TAB PO SCH (09:44)
[2020-04-30] MEDS: dexAMETHasone 6 MG in SYRINGE 0 ML IV SCH (10:23)
--- NOTE | 2020-04-30 13:04 | Hospitalist Progress Note ---
Date of Service April 30, 2020 Assessment & Plan (1) Pneumonia due to COVID-19 virus: Pneumonia due to COVID-19 virus with hypoxia. Pulse ox recorded as a low of 90% on room air; on 3L NC on admission. - Decadron 6 mg IV QAM (End date: 05/08/2020) - Remdesivir IV per protocol - Ventolin HFA 2 puffs 4 times daily, and every 2 hours as needed - Nasal cannula oxygen, titrate to keep pulse ox around 95% (2) Acute UTI: UA positive on admission. - Follow urine culture and sensitivity. - Ceftriaxone 1 g IV daily (3) Acute kidney injury superimposed on CKD: Creatinine 1.5 upon admission. Baseline Cr ~1.2, CKD stage III. - Follow Cr (4) Agitated: Acute metabolic encephalopathy from Covid and UTI. - Reorient as able. Treat above. - Continue quetiapine (5) Dementia: See above (6) Diabetes: Glucose 450 upon admission. A1c was 7.4% in 2019. - Glycemic consult - Repeat A1c (7) Elevated troponin I level: Troponin was 0.068 upon admission. Likely demand ischemia. - Trend troponins - Continua ASA (8) DVT prophylaxis: Heparin 5,000 units SQ Q12h Admission and Anticipated Discharge Date Admission Date: April 29, 2020 Subjective Only shouts at me to go away. Physical Exam Constitutional: WD/WN, vitals as above + acute distress Eyes: EOM intact bilaterally; no conjunctival abnormality ENMT: external ear and nose normal, oropharynx normal Neck: trachea midline, no thyromegaly normal visual inspection Respiratory: normal respiratory effort, lungs clear to auscultation no respiratory distress Cardiovascular: RRR, no murmur, no edema Gastrointestinal (Abdomen): Inspection/Auscultation: abdomen normal to inspection; abdomen not distended Musculoskeletal: no cyanosis or clubbing, extremities motor strength 5/5 Skin: no rashes, warm and dry Neurologic: moves all extremities and awake Psychiatric: Orientation: + not alert, + not oriented to person and + uncooperative Results & Data Results & Data ([facility]) Vital Signs (Past 12 Hours) Vital Signs Temp Pulse Pulse Resp BP Pulse Ox 04/30/20 11:45 36.5 C 44 L 13 140/62 92 04/30/20 10:21 48 L 04/30/20 08:31 36.5 C 53 L 16 135/76 98 PG Care Time/CCT Total # of Minutes Spent Total Time Spent with Patient: Total time spent is greater than 50% in coordination of care (as documented) at patient's floor/unit and/or counseling patient: Coding Level of Care Code 62326 Subseq Hosp Care Lvl 3 Diagnoses Pneumonia due to COVID-19 virus U07.1; J12.89 Acute UTI N39.0 Acute kidney injury superimposed on CKD N17.9; N18.9 Agitated R45.1 Dementia F03.91 Dementia behavioral disturbance: with behavioral disturbance Dementia type: unspecified type Diabetes E11.9 Elevated troponin I level R77.8 DVT prophylaxis Z29.9 (1) Dementia Dementia behavioral disturbance: with behavioral disturbance Dementia type: unspecified type Qualified Code(s): F03.91 - Unspecified dementia with behavioral disturbance
--- NOTE | 2020-04-30 13:50 | Pharmacy Report ---
Pharmacy Glycemic Short Note 2 - Date of Service April 30, 2020 - Glycemic Short BSG Results (Last 24 hours): 04/29/20 04/29/20 04/29/20 18:37 18:46 20:16 Glucose 450 H* POC Glucose 362 H* POC Glucose (other) 470 H* 04/29/20 04/30/20 04/30/20 23:02 00:47 04:07 Glucose POC Glucose 388 H* 403 H* 280 H POC Glucose (other) 04/30/20 04/30/20 04/30/20 06:14 08:26 11:48 Glucose 185 H POC Glucose 154 H 119 H POC Glucose (other) OUTPATIENT ANTIDIABETIC REGIMEN: * NPH 18 units SQ qam, 12 units SQ qpm * A1C: 7.4% 03/01/19 ASSESSMENT: * Patient admitted with COVID-19 pneumonia, initiated on dexamethasone 6mg IV daily. Patient is ordered a diet, however, no PO intake yet today. A one time dose of lantus was given this morning along with an aggressive q4h novolog scale. BSGs have downtrended nicely. Given this significant downtrend and lack of PO intake, dexamethasone coverage with NPH was deferred. Will continue with q4h novolog and lantus scale for today. IF BSGs start to uptrend again or if PO intake significantly increases, may consider adding 20 units of NPH to the regimen. PLAN FOR INPATIENT GLYCEMIC CONTROL: * Hold outpatient oral diabetes medications * Basal insulin * Lantus 17 units SQ X 1 @0445 this morning * Lantus scale this evenin,6,12- See MAR for details * Bolus insulin * NovoLog Q4 hrs * Goal Range: Low 120 mg/dL - High 160 mg/dL * Correction Factor: 15 mg/dL/unit * Nutritional / Prandial insulin per carb ratio of 1 unit per 6 grams CHO consumed
[2020-04-30] MEDS ORDERED: ATROPINE SULFATE 0.1 MG/ML 10ML SYR IV ONE (14:55)
--- NOTE | 2020-04-30 19:31 | Electrocardiogram Report ---
Test Reason : Blood Pressure : / mmHG Vent. Rate : 080 BPM Atrial Rate : 080 BPM P-R Int : 152 ms QRS Dur : 160 ms QT Int : 594 ms P-R-T Axes : 000 -47 039 degrees QTc Int : 686 ms Poor data quality, interpretation may be adversely affected Sinus rhythm Left axis deviation Left bundle branch block Abnormal ECG When compared with ECG of 28-FEB-2019 21:35, No significant change Confirmed by Nolberto Gutierrez ([id number]) on 04/30/2020 7:31:34 PM Referred By: REFERRED SELF Confirmed By:Nolberto Gutierrez
[2020-04-30] MEDS: cefTRIAXone SODIUM 1,000 MG in DEXTROSE 5% 50 ML IV SCH (19:34)
[2020-04-30] MEDS ORDERED: REMDESIVIR 100 MG in SODIUM CHLORIDE 0.9% 230 ML IV SCH (20:00)
[2020-04-30] MEDS: INSULIN GLARGINE SOLOSTAR 100 UNITS/ML 3 ML PEN SC SCH (21:09)
[2020-04-30] MEDS: HEPARIN SOD 5,000 UNIT/0.5 ML VIAL SQ SCH (21:09)
[2020-04-30] MEDS: CEROVITE ADV FORMULA TAB PO SCH (21:10)
[2020-04-30] MEDS: QUEtiapine FUMARATE 25 MG TABLET PO SCH (21:10)
[2020-05-01] MEDS: SODIUM CHLORIDE 0.9% 10ML FLUSH IV SCH (00:36)
[2020-05-01] MEDS: INSULIN ASPART 100 UNITS/ML 3 ML PEN SC SCH ×6 (00:36→20:55)
[2020-05-01 07:07] LABS: Hematocrit (blood only) 36.5 % (37-47); Hemoglobin 11.6 g/dL (12.0-16.0); Immature Granulocytes # (auto) 0.03 K/uL (0.00-0.02); Immature Granulocytes % (auto) 0.6 %; Lymphocytes # (auto) 0.42 K/uL (1.2-3.4); Lymphocytes % (auto) 8.6 %; Mean Corpuscular Hemoglobin 28.4 pg (25-34); Mean Corpuscular Hgb Conc 31.8 g/dL (32-36); Mean Corpuscular Volume 89.5 fL (80-100); Mean Platelet Volume 10.3 fL (7.4-10.4); Monocytes # (auto) 0.24 K/uL (0.11-0.59); Monocytes % (auto) 4.9 %; Neutrophils # (auto) 4.22 K/uL (1.4-6.5); Neutrophils % (auto) 85.9 %; Platelet Count 128 K/uL (130-400); RDW Coefficient of Variation 13.1 % (11.5-14.5); RDW Standard Deviation 42.9 fL (36.4-46.3); Red Blood Count 4.08 M/uL (4.2-5.4); White Blood Count 4.91 K/uL (4.8-10.8)
[2020-05-01 07:15] LABS: INR 1.1 (0.9-1.1); Partial Thromboplastin Time 27.9 Seconds (21.0-31.0); Prothrombin Time 11.9 Seconds (9.0-12.0)
[2020-05-01 07:18] LABS: Estimated Average Glucose 203 mg/dl; Hemoglobin A1C 8.7 % (4.5-5.6)
[2020-05-01 07:29] LABS: Albumin Level 3.3 gm/dl (3.4-5.0); BUN Creatinine Ratio 36.9 (10-20); Calcium 8.4 mg/dl (8.5-10.1); Creatinine Clr Calc Pharmacy 40.2 ml/min; Est GFR (African American) 66.3; Est GFR (Non-African American) 57.2; Magnesium 1.8 mg/dl (1.8-2.4); Potassium 3.7 mmol/L (3.5-5.1)
[2020-05-01 07:32] LABS: Albumin Globulin Ratio 0.9 (0.9-2); Bilirubin,Total 0.6 mg/dl (0.2-1); Globulin 3.7 gm/dl (2.5-4.0)
[2020-05-01] MEDS ORDERED: ACETAMINOPHEN 1,000 MG/100 ML VIAL IV STA (08:08)
[2020-05-01] MEDS: LORazepam 0.5 MG TAB PO SCH (08:52)
[2020-05-01] MEDS: ASPIRIN 81 MG ECTAB PO SCH (08:52)
[2020-05-01] MEDS: DOCUSATE SODIUM 100 MG CAP PO SCH (08:52)
[2020-05-01] MEDS: CALCIUM 600MG + VIT D 400 IU TAB PO SCH (08:52)
[2020-05-01] MEDS: INSULIN GLARGINE SOLOSTAR 100 UNITS/ML 3 ML PEN SC SCH ×2 (08:53→20:49)
[2020-05-01] MEDS: dexAMETHasone 6 MG in SYRINGE 0 ML IV SCH (08:53)
[2020-05-01] MEDS: HEPARIN SOD 5,000 UNIT/0.5 ML VIAL SQ SCH ×2 (08:54→20:52)
[2020-05-01] MEDS: SENNA 8.6 MG TAB PO SCH (10:20)
[2020-05-01] MEDS: PANTOprazole 40 MG TAB PO SCH (10:20)
[2020-05-01] MEDS: CHOLECALCIFEROL 1,000 UNITS 25 MCG TAB PO SCH (10:20)
[2020-05-01] MEDS: NYSTATIN/TRIAMCIN CR 15 GM TUBE EXT SCH ×2 (10:20→20:50)
--- NOTE | 2020-05-01 13:12 | Pharmacy Report ---
Pharmacy Glycemic Short Note 2 - Date of Service May 01, 2020 - Glycemic Short BSG Results (Last 24 hours): 04/30/20 04/30/20 05/01/20 16:35 20:29 00:09 Glucose POC Glucose 148 H 168 H 201 H 05/01/20 05/01/20 05/01/20 03:50 05:42 07:51 Glucose 168 H POC Glucose 183 H 167 H 05/01/20 11:54 Glucose POC Glucose 180 H OUTPATIENT ANTIDIABETIC REGIMEN: * NPH 18 units SQ qam, 12 units SQ qpm * A1C: 7.4% 03/01/19 ASSESSMENT: 04/30: * Patient reasonably controlled overall over the past 24 hours, receiving 64 total units of insulin yesterday * BSGs have been 160-180 thus far today. Will tighten NovoLog coverage, Will continue with lantus scale BID. I am hesitant to increase basal at this point as patient has very little PO intake. * Continues on IV dexamethasone 04/30 * Patient admitted with COVID-19 pneumonia, initiated on dexamethasone 6mg IV daily. Patient is ordered a diet, however, no PO intake yet today. A one time dose of lantus was given this morning along with an aggressive q4h novolog scale. BSGs have downtrended nicely. Given this significant downtrend and lack of PO intake, dexamethasone coverage with NPH was deferred. Will continue with q4h novolog and lantus scale for today. IF BSGs start to uptrend again or if PO intake significantly increases, may consider adding 20 units of NPH to the regimen. PLAN FOR INPATIENT GLYCEMIC CONTROL: * Hold outpatient oral diabetes medications * Basal insulin * Lantus scale BID: 6,12,17- See MAR for details * Bolus insulin * NovoLog Q4 hrs * Goal Range: Low 120 mg/dL - High 150 mg/dL * Correction Factor: 12 mg/dL/unit * Nutritional / Prandial insulin per carb ratio of 1 unit per 5 grams CHO consumed
--- NOTE | 2020-05-01 18:21 | Hospitalist Progress Note ---
Date of Service May 01, 2020 Assessment & Plan (1) Pneumonia due to COVID-19 virus: Pneumonia due to COVID-19 virus with hypoxia. Pulse ox recorded as a low of 90% on room air; on 3L NC on admission. - Decadron 6 mg IV QAM (End date: 05/08/2020) - Remdesivir started, but now off O2, so will defer further treatment with it. - Ventolin HFA 2 puffs 4 times daily, and every 2 hours as needed - Nasal cannula oxygen, titrate to keep pulse ox around 95% -> Back to room air. (2) Acute UTI: UA positive on admission. Culture grew ibarra-sensitive E. coli. - Ceftriaxone 1 g IV daily -> Switch to oral tomorrow. (3) Acute kidney injury superimposed on CKD: Creatinine 1.5 upon admission. Baseline Cr ~1.2, CKD stage III. - Follow Cr; now baseline by 05/01 (4) Agitated: Acute metabolic encephalopathy from Covid and UTI. - Reorient as able. Treat above. - Continue quetiapine (5) Dementia: See above (6) Diabetes: Glucose 450 upon admission. A1c was 7.4% in 2019. - Glycemic consult - Repeat A1c was 8.7%. - Sugars have been ~160s in last 24 hours. (7) Elevated troponin I level: Troponin was 0.068 upon admission. Likely demand ischemia. - Continue ASA (8) DVT prophylaxis: Heparin 5,000 units SQ Q12h Admission and Anticipated Discharge Date Admission Date: April 29, 2020 Subjective More pleasant today, no attempt to hit. Reports no fevers/chills, chest pain, shortness of breath, abdominal pain, nausea, or vomiting. Physical Exam Constitutional: WD/WN, vitals as above no acute distress Eyes: EOM intact bilaterally; no conjunctival abnormality ENMT: external ear and nose normal, oropharynx normal Neck: trachea midline, no thyromegaly normal visual inspection Respiratory: normal respiratory effort, lungs clear to auscultation no respiratory distress Cardiovascular: RRR, no murmur, no edema Gastrointestinal (Abdomen): Inspection/Auscultation: abdomen normal to inspection; abdomen not distended Musculoskeletal: no cyanosis or clubbing, extremities motor strength 5/5 Skin: no rashes, warm and dry Neurologic: moves all extremities and awake Psychiatric: Orientation: alert, oriented to person and cooperative Results & Data Results & Data ([facility] Vital Signs (Past 12 Hours) Vital Signs Temp Pulse Pulse Resp BP BP Pulse Ox 05/01/20 16:02 82 05/01/20 15:14 37 C 78 20 153/67 H 95 05/01/20 11:51 58 L 14 142/81 H 97 05/01/20 07:38 36.5 C 58 L 16 154/74 H 92 PG Care Time/CCT Total # of Minutes Spent Total Time Spent with Patient: Total time spent is greater than 50% in coordination of care (as documented) at patient's floor/unit and/or counseling patient: Coding Level of Care Code 46233 Subseq Hosp Care Lvl 3 Diagnoses Pneumonia due to COVID-19 virus U07.1; J12.89 Acute UTI N39.0 Acute kidney injury superimposed on CKD N17.9; N18.9 Agitated R45.1 Dementia F03.91 Dementia behavioral disturbance: with behavioral disturbance Dementia type: unspecified type Diabetes E11.9 Elevated troponin I level R77.8 DVT prophylaxis Z29.9 (1) Dementia Dementia behavioral disturbance: with behavioral disturbance Dementia type: unspecified type Qualified Code(s): F03.91 - Unspecified dementia with behavioral disturbance
[2020-05-01] MEDS: cefTRIAXone SODIUM 1,000 MG in DEXTROSE 5% 50 ML IV SCH (20:48)
[2020-05-01] MEDS: QUEtiapine FUMARATE 25 MG TABLET PO SCH (20:51)
[2020-05-01] MEDS: CEROVITE ADV FORMULA TAB PO SCH (20:51)
[2020-05-02] MEDS: INSULIN ASPART 100 UNITS/ML 3 ML PEN SC SCH ×7 (00:39→23:53)
[2020-05-02 07:03] LABS: Hematocrit (blood only) 39.7 % (37-47); Hemoglobin 12.8 g/dL (12.0-16.0); Immature Granulocytes # (auto) 0.02 K/uL (0.00-0.02); Immature Granulocytes % (auto) 0.3 %; Lymphocytes # (auto) 0.51 K/uL (1.2-3.4); Lymphocytes % (auto) 8.6 %; Mean Corpuscular Hemoglobin 28.6 pg (25-34); Mean Corpuscular Hgb Conc 32.2 g/dL (32-36); Mean Corpuscular Volume 88.8 fL (80-100); Mean Platelet Volume 10.4 fL (7.4-10.4); Monocytes # (auto) 0.35 K/uL (0.11-0.59); Monocytes % (auto) 5.9 %; Neutrophils # (auto) 5.03 K/uL (1.4-6.5); Neutrophils % (auto) 85.2 %; Platelet Count 153 K/uL (130-400); RDW Coefficient of Variation 13.3 % (11.5-14.5); RDW Standard Deviation 43.6 fL (36.4-46.3); Red Blood Count 4.47 M/uL (4.2-5.4); White Blood Count 5.91 K/uL (4.8-10.8)
[2020-05-02 07:16] LABS: INR 1.1 (0.9-1.1); Partial Thromboplastin Time 27.1 Seconds (21.0-31.0)
[2020-05-02 07:33] LABS: Albumin Level 3.3 gm/dl (3.4-5.0); BUN Creatinine Ratio 36.3 (10-20); Calcium 9.3 mg/dl (8.5-10.1); Est GFR (African American) 54.6; Est GFR (Non-African American) 47.1; Magnesium 1.8 mg/dl (1.8-2.4); Potassium 3.9 mmol/L (3.5-5.1)
[2020-05-02 07:35] LABS: Albumin Globulin Ratio 0.9 (0.9-2); Bilirubin,Total 0.6 mg/dl (0.2-1); Globulin 3.7 gm/dl (2.5-4.0)
[2020-05-02] MEDS: dexAMETHasone 6 MG in SYRINGE 0 ML IV SCH (08:27)
[2020-05-02] MEDS: ASPIRIN 81 MG ECTAB PO SCH (08:28)
[2020-05-02] MEDS: CALCIUM 600MG + VIT D 400 IU TAB PO SCH (08:28)
[2020-05-02] MEDS: LORazepam 0.5 MG TAB PO SCH (08:28)
[2020-05-02] MEDS: DOCUSATE SODIUM 100 MG CAP PO SCH (08:28)
[2020-05-02] MEDS: INSULIN GLARGINE SOLOSTAR 100 UNITS/ML 3 ML PEN SC SCH ×2 (08:29→21:03)
[2020-05-02] MEDS: NYSTATIN/TRIAMCIN CR 15 GM TUBE EXT SCH ×2 (08:30→21:04)
[2020-05-02] MEDS: SENNA 8.6 MG TAB PO SCH (08:31)
[2020-05-02] MEDS: CHOLECALCIFEROL 1,000 UNITS 25 MCG TAB PO SCH (08:31)
[2020-05-02] MEDS: PANTOprazole 40 MG TAB PO SCH (08:31)
[2020-05-02] MEDS: HEPARIN SOD 5,000 UNIT/0.5 ML VIAL SQ SCH ×2 (08:38→21:03)
--- NOTE | 2020-05-02 14:15 | Pharmacy Report ---
Pharmacy Glycemic Short Note 2 - Date of Service May 02, 2020 - Glycemic Short BSG Results (Last 24 hours): 05/01/20 05/01/20 05/02/20 16:33 20:13 00:37 Glucose POC Glucose 221 H 236 H 121 H 05/02/20 05/02/20 05/02/20 03:56 06:32 08:08 Glucose 89 POC Glucose 82 84 05/02/20 11:41 Glucose POC Glucose 91 OUTPATIENT ANTIDIABETIC REGIMEN: * NPH 18 units SQ qam, 12 units SQ qpm * A1C: 7.4% 03/01/19 ASSESSMENT: 05/02: * Patient well controlled over past 24 hours. As both fasting and post prandial BSGs significantly downtrended today, will reduce Lantus and loosen NovoLog. Patient remains on dexamethasone and diet remains poor. 05/01: * Patient reasonably controlled overall over the past 24 hours, receiving 64 total units of insulin yesterday * BSGs have been 160-180 thus far today. Will tighten NovoLog coverage, Will continue with lantus scale BID. I am hesitant to increase basal at this point as patient has very little PO intake. * Continues on IV dexamethasone 04/30 * Patient admitted with COVID-19 pneumonia, initiated on dexamethasone 6mg IV daily. Patient is ordered a diet, however, no PO intake yet today. A one time dose of lantus was given this morning along with an aggressive q4h novolog scale. BSGs have downtrended nicely. Given this significant downtrend and lack of PO intake, dexamethasone coverage with NPH was deferred. Will continue with q4h novolog and lantus scale for today. IF BSGs start to uptrend again or if PO intake significantly increases, may consider adding 20 units of NPH to the regimen. PLAN FOR INPATIENT GLYCEMIC CONTROL: * Hold outpatient oral diabetes medications * Basal insulin * Lantus 6 units this morning and following scale starting this evening * Lantus scale BID: 0,6,12- See MAR for details * Bolus insulin * NovoLog Q4 hrs * Goal Range: Low 120 mg/dL - High 150 mg/dL * Correction Factor: 25 mg/dL/unit * Nutritional / Prandial insulin per carb ratio of 1 unit per 8 grams CHO consumed
--- NOTE | 2020-05-02 14:21 | Hospitalist Progress Note ---
Date of Service May 02, 2020 Assessment & Plan (1) Pneumonia due to COVID-19 virus: Pneumonia due to COVID-19 virus with hypoxia. Pulse ox recorded as a low of 90% on room air; on 3L NC on admission. - Decadron 6 mg IV QAM (End date: 05/08/2020) - Remdesivir started, but then off O2, so deferred further treatment with it. Will restart final 3 doses. - Ventolin HFA 2 puffs 4 times daily, and every 2 hours as needed - Nasal cannula oxygen, titrate to keep pulse ox around 95% -> Now up to 5L on Oxymask. (2) Acute UTI: UA positive on admission. Culture grew ibarra-sensitive E. coli. - Ceftriaxone 1 g IV daily -> Switch to oral when able. (3) Acute kidney injury superimposed on CKD: Creatinine 1.5 upon admission. Baseline Cr ~1.2, CKD stage III. - Follow Cr; now baseline by 05/01 (4) Agitated: Acute metabolic encephalopathy from Covid and UTI. - Reorient as able. Treat above. - Continue quetiapine (5) Dementia: See above (6) Diabetes: Glucose 450 upon admission. A1c was 7.4% in 2019. - Glycemic consult - Repeat A1c was 8.7%. - Sugars have been 9-120 in last 24 hours. (7) Elevated troponin I level: Troponin was 0.068 upon admission. Likely demand ischemia. - Continue ASA (8) DVT prophylaxis: Heparin 5,000 units SQ Q12h Admission and Anticipated Discharge Date Admission Date: April 29, 2020 Subjective More confused today. She cannot answer orientation questions, and only answers "No" when asked about pain, but otherwise does not respond. Physical Exam Constitutional: WD/WN, vitals as above no acute distress Eyes: EOM intact bilaterally; no conjunctival abnormality ENMT: external ear and nose normal, oropharynx normal Neck: trachea midline, no thyromegaly normal visual inspection Respiratory: normal respiratory effort, lungs clear to auscultation no respiratory distress Cardiovascular: RRR, no murmur, no edema Gastrointestinal (Abdomen): Inspection/Auscultation: abdomen normal to inspection; abdomen not distended Musculoskeletal: no cyanosis or clubbing, extremities motor strength 5/5 Skin: no rashes, warm and dry Neurologic: moves all extremities and awake Psychiatric: Orientation: alert, oriented to person and cooperative Results & Data Results & Data ([facility]) Vital Signs (Past 12 Hours) Vital Signs Temp Pulse Pulse Resp BP BP Pulse Ox 05/02/20 11:36 37.0 C 63 16 154/69 H 96 05/02/20 08:10 37.0 C 83 20 123/73 97 05/02/20 07:45 85 05/02/20 04:08 36.6 C 73 18 139/98 90 PG Care Time/CCT Total # of Minutes Spent Total Time Spent with Patient: Total time spent is greater than 50% in coordination of care (as documented) at patient's floor/unit and/or counseling patient: Coding Level of Care Code 81387 Subseq Hosp Care Lvl 2 Diagnoses Pneumonia due to COVID-19 virus U07.1; J12.89 Acute UTI N39.0 Acute kidney injury superimposed on CKD N17.9; N18.9 Agitated R45.1 Dementia F03.91 Dementia behavioral disturbance: with behavioral disturbance Dementia type: unspecified type Diabetes E11.9 Elevated troponin I level R77.8 DVT prophylaxis Z29.9 (1) Dementia Dementia behavioral disturbance: with behavioral disturbance Dementia type: unspecified type Qualified Code(s): F03.91 - Unspecified dementia with behavioral disturbance
[2020-05-02] MEDS ORDERED: SODIUM CHLORIDE 0.45 % 500 ML IV SCH (14:30)
[2020-05-02] MEDS: REMDESIVIR 100 MG in SODIUM CHLORIDE 0.9% 230 ML IV SCH (15:22)
[2020-05-02] MEDS: SODIUM CHLORIDE 0.9% 10ML FLUSH IV SCH (17:06)
[2020-05-02] MEDS: cefTRIAXone SODIUM 1,000 MG in DEXTROSE 5% 50 ML IV SCH (19:27)
[2020-05-02] MEDS: CEROVITE ADV FORMULA TAB PO SCH (21:04)
[2020-05-02] MEDS: QUEtiapine FUMARATE 25 MG TABLET PO SCH (21:05)
[2020-05-03] MEDS: INSULIN ASPART 100 UNITS/ML 3 ML PEN SC SCH ×5 (05:08→21:51)
[2020-05-03 07:00] LABS: Hematocrit (blood only) 40.7 % (37-47); Hemoglobin 13.3 g/dL (12.0-16.0); Mean Corpuscular Hgb Conc 32.7 g/dL (32-36); Mean Corpuscular Volume 88.7 fL (80-100); Mean Platelet Volume 11.4 fL (7.4-10.4); Platelet Count 119 K/uL (130-400); RDW Coefficient of Variation 13.4 % (11.5-14.5); RDW Standard Deviation 43.9 fL (36.4-46.3); Red Blood Count 4.59 M/uL (4.2-5.4)
[2020-05-03 07:32] LABS: BUN Creatinine Ratio 50.2 (10-20); Calcium 8.9 mg/dl (8.5-10.1); Creatinine Clr Calc Pharmacy 38.3 ml/min; Est GFR (African American) 63.7; Magnesium 1.8 mg/dl (1.8-2.4)
[2020-05-03] MEDS: DOCUSATE SODIUM 100 MG CAP PO SCH (09:18)
[2020-05-03] MEDS: HEPARIN SOD 5,000 UNIT/0.5 ML VIAL SQ SCH ×2 (09:18→20:02)
[2020-05-03] MEDS: ASPIRIN 81 MG ECTAB PO SCH (09:18)
[2020-05-03] MEDS: CHOLECALCIFEROL 1,000 UNITS 25 MCG TAB PO SCH (09:18)
[2020-05-03] MEDS: dexAMETHasone 6 MG in SYRINGE 0 ML IV SCH (09:18)
[2020-05-03] MEDS: NYSTATIN/TRIAMCIN CR 15 GM TUBE EXT SCH ×2 (09:19→22:01)
[2020-05-03] MEDS: CALCIUM 600MG + VIT D 400 IU TAB PO SCH (09:19)
[2020-05-03] MEDS: PANTOprazole 40 MG TAB PO SCH (09:19)
[2020-05-03] MEDS: SENNA 8.6 MG TAB PO SCH (09:19)
[2020-05-03] MEDS: LORazepam 0.5 MG TAB PO SCH (09:20)
[2020-05-03] MEDS: INSULIN GLARGINE SOLOSTAR 100 UNITS/ML 3 ML PEN SC SCH ×2 (09:40→21:52)
[2020-05-03] MEDS: REMDESIVIR 100 MG in SODIUM CHLORIDE 0.9% 230 ML IV SCH (12:36)
[2020-05-03] MEDS: SODIUM CHLORIDE 0.9% 10ML FLUSH IV SCH (14:26)
--- NOTE | 2020-05-03 18:07 | Hospitalist Progress Note ---
Date of Service May 03, 2020 Assessment & Plan (1) Pneumonia due to COVID-19 virus: Pneumonia due to COVID-19 virus with hypoxia. Pulse ox recorded as a low of 90% on room air; on 3L NC on admission. - Decadron 6 mg IV QAM (End date: 05/08/2020) - Remdesivir started, but then off O2, so deferred further treatment with it. Will restart final 3 doses. - Ventolin HFA 2 puffs 4 times daily, and every 2 hours as needed - Nasal cannula oxygen, titrate to keep pulse ox around 95%, then 5L on Oxymask on 05/02. Now back to room air. (2) Acute UTI: UA positive on admission. Culture grew ibarra-sensitive E. coli. - Ceftriaxone 1 g IV daily -> Switch to oral when able. (3) Acute kidney injury superimposed on CKD: Creatinine 1.5 upon admission. Baseline Cr ~1.2, CKD stage III. - Follow Cr; now baseline by 05/01 - Looks pre-renal; will give IV fluids. (4) Agitated: Acute metabolic encephalopathy from Covid and UTI. - Reorient as able. Treat above. - Continue quetiapine (5) Dementia: See above (6) Diabetes: Glucose 450 upon admission. A1c was 7.4% in 2019. - Glycemic consult - Repeat A1c was 8.7%. - Sugars have been 9-120 in last 24 hours. (7) Elevated troponin I level: Troponin was 0.068 upon admission. Likely demand ischemia. - Continue ASA (8) DVT prophylaxis: Heparin 5,000 units SQ Q12h Admission and Anticipated Discharge Date Admission Date: April 29, 2020 Subjective Stable today. Possibly more responsive, but she is so hard of hearing that I cannot communicate well. Review of Systems Review of Systems: Unobtainable due to cognitive status Physical Exam Constitutional: WD/WN, vitals as above no acute distress Eyes: EOM intact bilaterally; no conjunctival abnormality ENMT: external ear and nose normal, oropharynx normal Neck: trachea midline, no thyromegaly normal visual inspection Respiratory: normal respiratory effort, lungs clear to auscultation no respiratory distress Cardiovascular: RRR, no murmur, no edema Gastrointestinal (Abdomen): Inspection/Auscultation: abdomen normal to inspection; abdomen not distended Musculoskeletal: no cyanosis or clubbing, extremities motor strength 5/5 Skin: no rashes, warm and dry Neurologic: moves all extremities and awake Psychiatric: Orientation: alert, oriented to person and cooperative; + not oriented to place and + not oriented to time Results & Data Results & Data ([facility]) Vital Signs (Past 12 Hours) Vital Signs Temp Pulse Pulse Resp BP BP Pulse Ox 05/03/20 15:39 36.6 C 67 17 148/105 H 95 05/03/20 14:00 95 05/03/20 12:09 92 05/03/20 11:37 36.5 C 91 H 20 129/73 96 05/03/20 11:03 22 97 05/03/20 07:52 37.0 C 80 24 139/83 95 PG Care Time/CCT Total # of Minutes Spent Total Time Spent with Patient: Total time spent is greater than 50% in coordination of care (as documented) at patient's floor/unit and/or counseling patient: Coding Level of Care Code 68585 Subseq Hosp Care Lvl 2 Diagnoses Pneumonia due to COVID-19 virus U07.1; J12.89 Acute UTI N39.0 Acute kidney injury superimposed on CKD N17.9; N18.9 Agitated R45.1 Dementia F03.91 Dementia behavioral disturbance: with behavioral disturbance Dementia type: unspecified type Diabetes E11.9 Elevated troponin I level R77.8 DVT prophylaxis Z29.9 (1) Dementia Dementia behavioral disturbance: with behavioral disturbance Dementia type: unspecified type Qualified Code(s): F03.91 - Unspecified dementia with behavioral disturbance
[2020-05-03] MEDS ORDERED: SODIUM CHLORIDE 0.45 % 1,000 ML IV SCH (18:15)
[2020-05-03] MEDS: cefTRIAXone SODIUM 1,000 MG in DEXTROSE 5% 50 ML IV SCH (20:01)
[2020-05-03] MEDS: QUEtiapine FUMARATE 25 MG TABLET PO SCH (20:05)
[2020-05-03] MEDS: CEROVITE ADV FORMULA TAB PO SCH (20:05)
[2020-05-04] MEDS: INSULIN ASPART 100 UNITS/ML 3 ML PEN SC SCH ×6 (00:36→23:22)
[2020-05-04 08:18] LABS: Mean Corpuscular Hemoglobin 28.7 pg (25-34); Mean Corpuscular Hgb Conc 32.4 g/dL (32-36); Mean Corpuscular Volume 88.8 fL (80-100); Mean Platelet Volume 11.3 fL (7.4-10.4); Platelet Count 112 K/uL (130-400); RDW Coefficient of Variation 13.4 % (11.5-14.5); RDW Standard Deviation 43.1 fL (36.4-46.3); Red Blood Count 3.83 M/uL (4.2-5.4); White Blood Count 3.42 K/uL (4.8-10.8)
[2020-05-04 08:44] LABS: BUN Creatinine Ratio 50.8 (10-20); Calcium 9.2 mg/dl (8.5-10.1); Creatinine Clr Calc Pharmacy 40.4 ml/min; Est GFR (African American) 67.1; Est GFR (Non-African American) 57.9; Magnesium 1.8 mg/dl (1.8-2.4); Potassium 3.9 mmol/L (3.5-5.1)
[2020-05-04] MEDS: DOCUSATE SODIUM 100 MG CAP PO SCH (08:46)
[2020-05-04] MEDS: SENNA 8.6 MG TAB PO SCH (08:46)
[2020-05-04] MEDS: PANTOprazole 40 MG TAB PO SCH (08:46)
[2020-05-04] MEDS: ASPIRIN 81 MG ECTAB PO SCH (08:46)
[2020-05-04] MEDS: HEPARIN SOD 5,000 UNIT/0.5 ML VIAL SQ SCH ×2 (08:46→20:39)
[2020-05-04] MEDS: CHOLECALCIFEROL 1,000 UNITS 25 MCG TAB PO SCH (08:46)
[2020-05-04] MEDS: CALCIUM 600MG + VIT D 400 IU TAB PO SCH (08:46)
[2020-05-04] MEDS: LORazepam 0.5 MG TAB PO SCH (08:50)
[2020-05-04] MEDS: dexAMETHasone 6 MG in SYRINGE 0 ML IV SCH (08:50)
[2020-05-04] MEDS: INSULIN GLARGINE SOLOSTAR 100 UNITS/ML 3 ML PEN SC SCH ×2 (09:24→23:22)
[2020-05-04] MEDS: NYSTATIN/TRIAMCIN CR 15 GM TUBE EXT SCH ×2 (10:19→20:42)
[2020-05-04] MEDS: REMDESIVIR 100 MG in SODIUM CHLORIDE 0.9% 230 ML IV SCH (11:41)
[2020-05-04] MEDS: SODIUM CHLORIDE 0.9% 10ML FLUSH IV SCH (12:50)
--- NOTE | 2020-05-04 13:07 | Pharmacy Report ---
Pharmacy Glycemic Short Note 2 - Date of Service May 04, 2020 - Glycemic Short BSG Results (Last 24 hours): 05/03/20 05/03/20 05/04/20 16:16 20:14 00:28 Glucose POC Glucose 152 H 252 H 184 H 05/04/20 05/04/20 05/04/20 05:41 06:42 07:42 Glucose 116 H POC Glucose 135 H 116 H 05/04/20 11:22 Glucose POC Glucose 157 H OUTPATIENT ANTIDIABETIC REGIMEN: * NPH 18 units SQ qam, 12 units SQ qpm * A1C: 7.4% 03/01/19 ASSESSMENT: 05/04: * Patient received 24 total units of insulin yesterday, 12 units of basal and 12 units of prandial/correctional * BSGs adequate but did trend up at bedtime, Novolog parameters were tightened with lunch yesterday and will continue with same today, however will adjust goal range to 110-140 mg/dL. Will continue to tighten if necessary. * Fasting is within goal range- will continue current scales. 05/02: * Patient well controlled over past 24 hours. As both fasting and post prandial BSGs significantly downtrended today, will reduce Lantus and loosen NovoLog. Patient remains on dexamethasone and diet remains poor. 05/01: * Patient reasonably controlled overall over the past 24 hours, receiving 64 total units of insulin yesterday * BSGs have been 160-180 thus far today. Will tighten NovoLog coverage, Will continue with lantus scale BID. I am hesitant to increase basal at this point as patient has very little PO intake. * Continues on IV dexamethasone 04/30 * Patient admitted with COVID-19 pneumonia, initiated on dexamethasone 6mg IV daily. Patient is ordered a diet, however, no PO intake yet today. A one time dose of lantus was given this morning along with an aggressive q4h novolog scale. BSGs have downtrended nicely. Given this significant downtrend and lack of PO intake, dexamethasone coverage with NPH was deferred. Will continue with q4h novolog and lantus scale for today. IF BSGs start to uptrend again or if PO intake significantly increases, may consider adding 20 units of NPH to the regimen. PLAN FOR INPATIENT GLYCEMIC CONTROL: * Hold outpatient oral diabetes medications * Basal insulin * Lantus per scale- received 0 units this morning * Lantus scale BID: 0,8,12- See MAR for details * Bolus insulin * NovoLog Q4 hrs * Goal Range: Low 110 mg/dL - High 140 mg/dL * Correction Factor: 18 mg/dL/unit * Nutritional / Prandial insulin per carb ratio of 1 unit per 6 grams CHO consumed
--- NOTE | 2020-05-04 14:22 | Hospitalist Progress Note ---
Date of Service May 04, 2020 Assessment & Plan (1) Pneumonia due to COVID-19 virus: Pneumonia due to COVID-19 virus with hypoxia. Pulse ox recorded as a low of 90% on room air; on 3L NC on admission. - Decadron 6 mg IV QAM (End date: 05/08/2020) - Finished remdesivir (End date: 05/04/2020) - Nasal cannula oxygen, titrate to keep pulse ox around 95%, then 5L on Oxymask on 05/02. Now back to 2L. Still very delirious. Had an episode of coughing with breakfast. - Discussed with son on 05/04 - Ok with IV fluids, but no NG tube for now. Will get palliative care to help with goals of care. States he is "not ready" to lose his mother, but that she has said she is ready to for some time. (2) Hypernatremia: Na is 146 today. Volume depletion from poor PO intake. Free water deficit ~1.5L. - Will gently give 1.5 L D5w IV fluids - Monitor (3) Acute UTI: UA positive on admission. Culture grew ibarra-sensitive E. coli. - Ceftriaxone 1 g IV daily - finish 7-day course on 05/06/2020. (4) Acute kidney injury superimposed on CKD: Creatinine 1.5 upon admission. Baseline Cr ~0.9, CKD stage III. - Follow Cr; now baseline by 05/03 (5) Agitated: Acute metabolic encephalopathy from Covid and UTI, superimposed on dementia. - Reorient as able. Treat above. - Continue quetiapine (6) Dementia: See above (7) Diabetes: Glucose 450 upon admission. A1c was 7.4% in 2019. - Glycemic consult - Repeat A1c was 8.7%. - Sugars have been 150-200 in last 24 hours. (8) Elevated troponin I level: Troponin was 0.068 upon admission. Likely demand ischemia. - Continue ASA (9) DVT prophylaxis: Heparin 5,000 units SQ Q12h Admission and Anticipated Discharge Date Admission Date: April 29, 2020 Subjective Still confused today. Not able to answer questions. Review of Systems Review of Systems: Unobtainable due to cognitive status Physical Exam Constitutional: WD/WN, vitals as above no acute distress Eyes: EOM intact bilaterally; no conjunctival abnormality ENMT: external ear and nose normal, oropharynx normal Neck: trachea midline, no thyromegaly normal visual inspection Respiratory: normal respiratory effort, lungs clear to auscultation no respiratory distress Cardiovascular: RRR, no murmur, no edema Gastrointestinal (Abdomen): Inspection/Auscultation: abdomen normal to inspection; abdomen not distended Musculoskeletal: no cyanosis or clubbing, extremities motor strength 5/5 Skin: no rashes, warm and dry Neurologic: moves all extremities and awake Psychiatric: Orientation: alert, oriented to person and cooperative; + not oriented to place and + not oriented to time Results & Data Results & Data ([facility]) Vital Signs (Past 12 Hours) Vital Signs Temp Pulse Pulse Resp BP BP Pulse Ox 05/04/20 11:25 36.4 C L 42 L 20 139/63 96 05/04/20 09:44 22 92 05/04/20 07:25 36.4 C L 46 L 22 133/65 95 05/04/20 07:20 38 L 05/04/20 03:54 36.7 C 47 L 20 126/39 L 97 PG Care Time/CCT Total # of Minutes Spent Total Time Spent with Patient: Total time spent is greater than 50% in coordination of care (as documented) at patient's floor/unit and/or counseling patient: Coding Level of Care Code 96942 Subseq Hosp Care Lvl 3 Diagnoses Pneumonia due to COVID-19 virus U07.1; J12.89 Hypernatremia E87.0 Acute UTI N39.0 Acute kidney injury superimposed on CKD N17.9; N18.9 Agitated R45.1 Dementia F03.91 Dementia behavioral disturbance: with behavioral disturbance Dementia type: unspecified type Diabetes E11.9 Elevated troponin I level R77.8 DVT prophylaxis Z29.9 (1) Dementia Dementia behavioral disturbance: with behavioral disturbance Dementia type: unspecified type Qualified Code(s): F03.91 - Unspecified dementia with behavioral disturbance
[2020-05-04] MEDS: DEXTROSE 5% 1,000 ML IV SCH (15:14)
[2020-05-04] MEDS: cefTRIAXone SODIUM 1,000 MG in DEXTROSE 5% 50 ML IV SCH (19:37)
[2020-05-04] MEDS: CEROVITE ADV FORMULA TAB PO SCH (20:42)
[2020-05-04] MEDS: QUEtiapine FUMARATE 25 MG TABLET PO SCH (20:43)
[2020-05-05] MEDS: DEXTROSE 5% 1,000 ML IV SCH ×2 (02:14→12:46)
[2020-05-05] MEDS: QUEtiapine FUMARATE 25 MG TABLET PO SCH ×2 (02:21→20:55)
[2020-05-05 06:27] LABS: Hematocrit (blood only) 38.2 % (37-47); Hemoglobin 12.1 g/dL (12.0-16.0); Mean Corpuscular Hemoglobin 27.9 pg (25-34); Mean Corpuscular Hgb Conc 31.7 g/dL (32-36); Mean Corpuscular Volume 88.2 fL (80-100); Mean Platelet Volume 11.2 fL (7.4-10.4); Platelet Count 123 K/uL (130-400); RDW Coefficient of Variation 13.1 % (11.5-14.5); RDW Standard Deviation 42.2 fL (36.4-46.3); Red Blood Count 4.33 M/uL (4.2-5.4); White Blood Count 6.19 K/uL (4.8-10.8)
[2020-05-05 06:55] LABS: BUN Creatinine Ratio 41.5 (10-20); Calcium 9.2 mg/dl (8.5-10.1); Creatinine Clr Calc Pharmacy 39.5 ml/min; Est GFR (African American) 64.6; Est GFR (Non-African American) 55.7; Magnesium 1.5 mg/dl (1.8-2.4); Potassium 3.8 mmol/L (3.5-5.1)
[2020-05-05 06:56] LABS: Phosphorus 3.2 mg/dl (2.5-4.9)
[2020-05-05] MEDS: INSULIN ASPART 100 UNITS/ML 3 ML PEN SC SCH ×4 (08:11→21:14)
[2020-05-05] MEDS: LORazepam 0.5 MG TAB PO SCH (08:13)
[2020-05-05] MEDS: MAGNESIUM SULFATE / D5W 1 GM/100 ML BAG IV SCH ×2 (08:13→10:02)
[2020-05-05] MEDS: CALCIUM 600MG + VIT D 400 IU TAB PO SCH (08:14)
[2020-05-05] MEDS: dexAMETHasone 6 MG in SYRINGE 0 ML IV SCH (08:14)
[2020-05-05] MEDS: DOCUSATE SODIUM 100 MG CAP PO SCH (08:14)
[2020-05-05] MEDS: ASPIRIN 81 MG ECTAB PO SCH (08:14)
[2020-05-05] MEDS: HEPARIN SOD 5,000 UNIT/0.5 ML VIAL SQ SCH ×2 (08:16→20:58)
[2020-05-05] MEDS: INSULIN GLARGINE SOLOSTAR 100 UNITS/ML 3 ML PEN SC SCH ×2 (08:16→21:14)
[2020-05-05] MEDS: NYSTATIN/TRIAMCIN CR 15 GM TUBE EXT SCH ×2 (08:17→20:57)
[2020-05-05] MEDS: SENNA 8.6 MG TAB PO SCH (08:17)
[2020-05-05] MEDS: CHOLECALCIFEROL 1,000 UNITS 25 MCG TAB PO SCH (08:17)
[2020-05-05] MEDS: PANTOprazole 40 MG TAB PO SCH (08:17)
--- NOTE | 2020-05-05 11:11 | Hospitalist Progress Note ---
Date of Service May 05, 2020 Assessment & Plan (1) Pneumonia due to COVID-19 virus: Pneumonia due to COVID-19 virus with hypoxia. Pulse ox recorded as a low of 90% on room air; on 3L NC on admission. - Decadron 6 mg IV QAM (End date: 05/08/2020) - Finished remdesivir (End date: 05/04/2020) - titrated down to room air today, saturations 92%, no distress will transfer to medical floor to - hospitalist discussed with son on 05/04 - Ok with IV fluids, but no NG tube for now. Will get palliative care to help with goals of care. States he is "not ready" to lose his mother, but that she has said she is ready to for some time. She is DNR/DNI status (2) Hypernatremia: Na down to 139 today. Volume depletion from poor PO intake. Free water deficit ~1.5L. - Will continue D5w IV fluids - Monitor (3) Acute UTI: UA positive on admission. Culture grew ibarra-sensitive E. coli. - Ceftriaxone 1 g IV daily - finish 7-day course on 05/06/2020 no fever (4) Acute kidney injury superimposed on CKD: Creatinine 1.5 upon admission. Baseline Cr ~0.9, CKD stage III. - Follow Cr, it is down to 0.94 today (5) Agitated: Acute metabolic encephalopathy from Covid and UTI, superimposed on dementia. - Reorient as able. Treat above. - Continue quetiapine not eating or drinking, guarded prognosis unclear how long COVID delirium can last palliative care is consulted (6) Dementia: See above (7) Diabetes: Glucose 450 upon admission. A1c was 7.4% in 2019. - Glycemic consult - Repeat A1c was 8.7%. - Sugars have been 150-200 in last 24 hours, continue to monitor closely for hypoglycemia/hyperglycemia (8) Elevated troponin I level: Troponin was 0.068 upon admission. Likely demand ischemia. - Continue ASA (9) DVT prophylaxis: Heparin 5,000 units SQ Q12h Admission and Anticipated Discharge Date Admission Date: April 29, 2020 Subjective patient laying in bed, hard of hearing she is not in distress reviewed chart, she is not eating or drinking well she is off oxygen this morning no issues on tele, will downgrade to medical status Review of Systems Review of Systems: Unobtainable due to cognitive status Physical Exam Constitutional: well developed and + frail appearing; no acute distress Neck: trachea midline, no thyromegaly Respiratory: normal respiratory effort, lungs clear to auscultation Cardiovascular: RRR, no murmur, no edema Gastrointestinal (Abdomen): normal bowel sounds, soft, nontender, no hepatosplenomegaly Musculoskeletal: Head/Neck/Chest: normocephalic, head atraumatic and neck supple Extremities: extremities normal to inspection and + abnormal strength (generalized weakness); no cyanosis, no clubbing and no petechiae Skin: no rashes, warm and dry Neurologic: awake and + confused; no focal motor deficits Psychiatric: Orientation: alert, oriented to person and cooperative; + not oriented to place and + not oriented to time Lymphatic: no cervical or axillary lymphadenopathy Results & Data Results & Data ([facility]) Vital Signs (Past 12 Hours) Vital Signs Temp Pulse Pulse Pulse Resp BP BP 05/05/20 07:43 36.9 C 52 L 19 150/62 H 05/05/20 04:04 36.7 C 60 20 169/56 H 05/05/20 01:11 43 L 05/05/20 00:00 36.6 C 47 L 19 162/58 H Pulse Ox Pulse Ox 05/05/20 07:43 97 05/05/20 04:04 98 05/05/20 01:11 05/05/20 00:00 93 99 Laboratory Results Laboratory Results - last 24 hr 05/04/20 05/04/20 05/04/20 11:22 16:31 20:36 WBC RBC Hgb Hct MCV MCH MCHC RDW Std Deviation RDW Coeff of Luis E Plt Count MPV Sodium Potassium Chloride Carbon Dioxide Anion Gap BUN Creatinine Est Cr Clr Drug Dosing Est GFR ( Amer) Est GFR (Non-Af Amer) BUN/Creatinine Ratio Glucose POC Glucose 157 H 169 H 235 H Calcium Phosphorus Magnesium 05/05/20 05/05/20 05/05/20 05:57 05:57 07:40 WBC 6.19 RBC 4.33 Hgb 12.1 Hct 38.2 MCV 88.2 MCH 27.9 MCHC 31.7 L RDW Std Deviation 42.2 RDW Coeff of Luis E 13.1 Plt Count 123 L MPV 11.2 H Sodium 139 Potassium 3.8 Chloride 104 Carbon Dioxide 28 Anion Gap 7.0 BUN 39 H Creatinine 0.94 Est Cr Clr Drug Dosing 39.5 Est GFR ( Amer) 64.6 Est GFR (Non-Af Amer) 55.7 BUN/Creatinine Ratio 41.5 H Glucose 241 H POC Glucose 212 H Calcium 9.2 Phosphorus 3.2 Magnesium 1.5 L Medications Administered Current Inpatient Medications Acetaminophen (Acetaminophen 500 Mg Tab) 1,000 mg PO Q8 PRN PRN Reason: pain Stop: 05/29/20 23:00 Aspirin (Aspirin 81 Mg Ectab) 81 mg PO [facility] Stop: 05/30/20 08:59 Last Admin: 05/05/20 08:14 Dose: 81 mg Documented by: Dextrose (Dextrose 50% 50 Ml Syringe) 25 - 50 ml IV UD PRN; Protocol PRN Reason: Hypoglycemia Protocol Stop: 05/29/20 19:59 Docusate Sodium (Docusate Sodium 100 Mg Cap) 100 mg PO [facility] Stop: 05/30/20 08:59 Last Admin: 05/05/20 08:14 Dose: 100 mg Documented by: Glucagon (Glucagon For Inj 1 Mg Vial) 1 mg IM UD PRN; Protocol PRN Reason: Hypoglycemia Protocol Stop: 05/29/20 19:59 Glucose (Glucose 40% Gel 15 Gm Tube) 15 - 30 gm PO UD PRN; Protocol PRN Reason: Hypoglycemia Protocol Stop: 05/29/20 19:59 Glucose (Glucose 10 Tabs/Tube) 4 - 8 tabs PO UD PRN; Protocol PRN Reason: Hypoglycemia Protocol Stop: 05/29/20 19:59 Heparin Sodium (Porcine) (Heparin Sod 5,000 Unit/0.5 Ml Vial) 5,000 units SQ Q12 [facility] Stop: 05/30/20 20:59 Last Admin: 05/05/20 08:16 Dose: 5,000 units Documented by: Dexamethasone 6 mg/ Syringe 1.5 mls @ 1 mls/min IV [facility] Stop: 05/30/20 08:59 Last Admin: 05/05/20 08:14 Dose: 1 mls/min Documented by: Ceftriaxone Sodium 1,000 mg/ (Dextrose) 50 mls @ 100 mls/hr IV Q24H [facility]; Protocol Stop: 05/06/20 23:50 Last Infusion: 05/04/20 20:24 Dose: Infused Documented by: Magnesium Sulfate/Dextrose (Magnesium Sulfate / D5w) 1 gm in 100 mls @ 50 mls/hr IV Q2H [facility] Stop: 05/05/20 11:59 Last Admin: 05/05/20 10:02 Dose: 50 mls/hr Documented by: Insulin Aspart (Insulin Aspart 100 Units/Ml 3 Ml Pen) 0 units SC ACHS [facility] Stop: 06/03/20 20:59 Last Admin: 05/05/20 08:11 Dose: 4 units Documented by: Insulin Glargine (Insulin Glargine Solostar 100 Units/Ml 3 Ml Pen) 0 units SC BID [facility]; Protocol Stop: 05/30/20 20:59 Last Admin: 05/05/20 08:16 Dose: 8 units Documented by: Lorazepam (Lorazepam 0.5 Mg Tab) 0.5 mg PO QAM [facility] Stop: 05/30/20 08:59 Last Admin: 05/05/20 08:13 Dose: 0.5 mg Documented by: Miscellaneous (Carbohydrates For Hypoglycemia ) 15 - 30 gm PO PRN PRN PRN Reason: Hypoglycemia Treatment Stop: 05/29/20 19:59 Miscellaneous Information (Pharmacy Glycemic Mgmt Consult) 1 ea N/A UD PRN PRN Reason: Consult Stop: 05/29/20 23:54 Multivitamins/Minerals (Calcium 600mg + Vit D 400 Iu Tab) 1 tab PO QAM [facility] Stop: 05/30/20 08:59 Last Admin: 05/05/20 08:14 Dose: 1 tab Documented by: Multivitamins/Minerals (Cerovite Adv Formula Tab) 1 tab PO HS [facility] Stop: 05/30/20 20:59 Last Admin: 05/04/20 20:42 Dose: Not Given Documented by: Nystatin/Triamcinolone Acetonide (Nystatin/Triamcin Cr 15 Gm Tube) 1 appln EXT BID [facility] Stop: 05/30/20 08:59 Last Admin: 05/05/20 08:17 Dose: 1 appln Documented by: Ondansetron HCl (Ondansetron Inj 2 Mg/Ml 2 Ml Vial) 4 mg IV Q6H PRN PRN Reason: Nausea Stop: 05/29/20 23:00 Pantoprazole Sodium (Pantoprazole 40 Mg Tab) [facility] [facility] [place]: 05/30/20 08:59 Last Admin: 05/05/20 08:17 Dose: 40 mg Documented by: Polyethylene Glycol (Polyethylene (Miralax) 17 Gm Pack) 17 gm PO DAILY PRN PRN Reason: Constipation Stop: 05/29/20 23:00 Quetiapine Fumarate (Quetiapine Fumarate 25 Mg Tablet) 50 mg PO HS [facility] Stop: 05/30/20 20:59 Last Admin: 05/05/20 02:21 Dose: 50 mg Documented by: Sennosides (Senna 8.6 Mg Tab) 8.6 mg PO DAILY [facility] Stop: 05/30/20 08:59 Last Admin: 05/05/20 08:17 Dose: 8.6 mg Documented by: Vitamin D (Cholecalciferol 1,000 Units 25 Mcg Tab) 2,000 units PO QAM [facility] Stop: 05/30/20 08:59 Last Admin: 05/05/20 08:17 Dose: 2,000 units Documented by: PG Care Time/CCT Total # of Minutes Spent Total Time Spent with Patient: Total time spent is greater than 50% in coordination of care (as documented) at patient's floor/unit and/or counseling patient: Coding Level of Care Code 52669 Subseq Hosp Care Lvl 2 Diagnoses Pneumonia due to COVID-19 virus U07.1; J12.89 Hypernatremia E87.0 Acute UTI N39.0 Acute kidney injury superimposed on CKD N17.9; N18.9 Agitated R45.1 Dementia F03.91 Dementia behavioral disturbance: with behavioral disturbance Dementia type: unspecified type Diabetes E11.9 Elevated troponin I level R77.8 DVT prophylaxis Z29.9 (1) Dementia Dementia behavioral disturbance: with behavioral disturbance Dementia type: unspecified type Qualified Code(s): F03.91 - Unspecified dementia with behavioral disturbance
--- NOTE | 2020-05-05 12:15 | Pharmacy Report ---
Pharmacy Glycemic Short Note 2 - Date of Service May 05, 2020 - Glycemic Short BSG Results (Last 24 hours): 05/04/20 05/04/20 05/05/20 16:31 20:36 05:57 Glucose 241 H POC Glucose 169 H 235 H 05/05/20 05/05/20 07:40 11:20 Glucose POC Glucose 212 H 132 H OUTPATIENT ANTIDIABETIC REGIMEN: * NPH 18 units SQ qam, 12 units SQ qpm * A1C: 7.4% 03/01/19 ASSESSMENT: 05/05: * Patient received total of 21 units of insulin yesterday, of which 12 were basal insulin * BSGs trending up overnight - likely due to dextrose fluids ordered (1 liter x 1) * Fasting BSG this AM elevated at 241 mg/dL - will give small dose of Lantus to help with coverage. Fluids stopped this morning - plan to resume this afternoon - will continue with basal scale for HS * Goals of care discussed with patient, plan for no NG tube but okay to continue with IV fluids. Palliative care to help with goals of care PLAN FOR INPATIENT GLYCEMIC CONTROL: * Hold outpatient oral diabetes medications * Basal insulin * Lantus 8 units x 1 this AM * Lantus 0-8 units HS per scale * Bolus insulin * NovoLog ACHS * Goal Range: Low 110 mg/dL - High 140 mg/dL * Correction Factor: 18 mg/dL/unit * Nutritional / Prandial insulin per carb ratio of 1 unit per 6 grams CHO consumed
[2020-05-05] MEDS: CEROVITE ADV FORMULA TAB PO SCH (20:55)
[2020-05-05] MEDS: cefTRIAXone SODIUM 1,000 MG in DEXTROSE 5% 50 ML IV SCH (20:58)
[2020-05-06] MEDS: DEXTROSE 5% 1,000 ML IV SCH (00:04)
[2020-05-06 07:40] LABS: BUN Creatinine Ratio 34.2 (10-20); Calcium 9.6 mg/dl (8.5-10.1); Creatinine Clr Calc Pharmacy 41.8 ml/min; Est GFR (African American) 69.9; Est GFR (Non-African American) 60.3; Potassium 3.7 mmol/L (3.5-5.1)
[2020-05-06] MEDS: INSULIN ASPART 100 UNITS/ML 3 ML PEN SC SCH ×4 (08:14→22:20)
[2020-05-06] MEDS: DOCUSATE SODIUM 100 MG CAP PO SCH (08:16)
[2020-05-06] MEDS: CALCIUM 600MG + VIT D 400 IU TAB PO SCH (08:16)
[2020-05-06] MEDS: dexAMETHasone 6 MG in SYRINGE 0 ML IV SCH (08:16)
[2020-05-06] MEDS: HEPARIN SOD 5,000 UNIT/0.5 ML VIAL SQ SCH ×2 (08:16→21:34)
[2020-05-06] MEDS: ASPIRIN 81 MG ECTAB PO SCH (08:16)
[2020-05-06] MEDS: INSULIN GLARGINE SOLOSTAR 100 UNITS/ML 3 ML PEN SC SCH ×2 (08:17→22:19)
[2020-05-06] MEDS: NYSTATIN/TRIAMCIN CR 15 GM TUBE EXT SCH ×2 (08:17→21:38)
[2020-05-06] MEDS: SENNA 8.6 MG TAB PO SCH (08:17)
[2020-05-06] MEDS: PANTOprazole 40 MG TAB PO SCH (08:17)
[2020-05-06] MEDS: CHOLECALCIFEROL 1,000 UNITS 25 MCG TAB PO SCH (08:17)
[2020-05-06] MEDS: LORazepam 0.5 MG TAB PO SCH (08:19)
[2020-05-06] MEDS: ACETAMINOPHEN 500 MG TAB PO PRN (08:19)
--- NOTE | 2020-05-06 09:43 | Hospitalist Progress Note ---
Date of Service May 06, 2020 Assessment & Plan (1) Pneumonia due to COVID-19 virus: Pneumonia due to COVID-19 virus with hypoxia. Pulse ox recorded as a low of 90% on room air; on 3L NC on admission. - Decadron 6 mg IV QAM (End date: 05/08/2020) - Finished remdesivir (End date: 05/04/2020) - titrated down to room air for a few days, no distress or increased work of breathing will transfer to medical floor, waiting for a bed - Dr. Calabrese discussed with son on 05/04 - Ok with IV fluids, but no NG tube for now. Will get palliative care to help with goals of care. States he is "not ready" to lose his mother, but that she has said she is ready to for some time. She is DNR/DNI status await formal palliative care consult tomorrow, will try to reach out to son today (2) Hypernatremia: stable at 139 today. Volume depletion from poor PO intake. Free water deficit was ~1.5L. - change to D5 1/2 NSS no need for labs tomorrow (3) Acute UTI: UA positive on admission. Culture grew ibarra-sensitive E. coli. - Ceftriaxone 1 g IV daily - finish 7-day course on 05/06/2020 no fever, vitals stable, adequately treated (4) Acute kidney injury superimposed on CKD: Creatinine 1.5 upon admission. Baseline Cr ~0.9, CKD stage III. - Follow Cr, it is down to 0.88 today (5) Agitated: Acute metabolic encephalopathy from Covid and UTI, superimposed on dementia. - Reorient as able. Treat above. - Continue quetiapine not eating or drinking, guarded prognosis unclear how long COVID delirium can last palliative care is consulted for tomorrow (6) Dementia: See above (7) Diabetes: Glucose 450 upon admission. A1c was 7.4% in 2019. - Glycemic consult - Repeat A1c was 8.7%. - Sugars have been 130-200 in last 24 hours, continue to monitor closely for hypoglycemia/hyperglycemia (8) Elevated troponin I level: Troponin was 0.068 upon admission. Likely demand ischemia. - Continue ASA (9) DVT prophylaxis: Heparin 5,000 units SQ Q12h Admission and Anticipated Discharge Date Admission Date: April 29, 2020 Subjective patient laying in bed, no distress, stable on room air she refuses to eat, she is agitated, does not want to talke kat in place reviewed labs, Cr and electrolytes stabel today Review of Systems Review of Systems: Unobtainable due to cognitive status (refuses to answer questions, appears comfortable) Physical Exam Constitutional: well developed and + frail appearing; no acute distress Neck: trachea midline, no thyromegaly Respiratory: normal respiratory effort, lungs clear to auscultation Cardiovascular: RRR, no murmur, no edema Gastrointestinal (Abdomen): normal bowel sounds, soft, nontender, no hepatosplenomegaly Musculoskeletal: Head/Neck/Chest: normocephalic, head atraumatic and neck supple Extremities: extremities normal to inspection and + abnormal strength (generalized weakness); no cyanosis, no clubbing and no petechiae Skin: no rashes, warm and dry Neurologic: awake and + confused; no focal motor deficits Psychiatric: Orientation: alert, oriented to person and + guarded; + not oriented to place, + not oriented to time and + uncooperative Lymphatic: no cervical or axillary lymphadenopathy Results & Data Results & Data ([facility]) Vital Signs (Past 12 Hours) Vital Signs Temp Pulse Resp BP Pulse Ox 05/06/20 07:55 36.7 C 53 L 19 118/74 93 05/06/20 04:18 37.0 C 53 L 19 113/82 94 05/05/20 23:54 37.0 C 52 L 20 139/64 97 Laboratory Results Laboratory Results - last 24 hr 05/05/20 05/05/20 05/05/20 11:20 16:40 20:31 Sodium Potassium Chloride Carbon Dioxide Anion Gap BUN Creatinine Est Cr Clr Drug Dosing Est GFR ( Amer) Est GFR (Non-Af Amer) BUN/Creatinine Ratio Glucose POC Glucose 132 H 223 H 186 H Calcium 05/06/20 05/06/20 06:34 07:56 Sodium 139 Potassium 3.7 Chloride 103 Carbon Dioxide 31 Anion Gap 5.0 BUN 30 H Creatinine 0.88 Est Cr Clr Drug Dosing 41.8 Est GFR ( Amer) 69.9 Est GFR (Non-Af Amer) 60.3 BUN/Creatinine Ratio 34.2 H Glucose 169 H POC Glucose 131 H Calcium 9.6 Medications Administered Current Inpatient Medications Acetaminophen (Acetaminophen 500 Mg Tab) 1,000 mg PO Q8 PRN PRN Reason: pain Stop: 05/29/20 23:00 Last Admin: 05/06/20 08:19 Dose: 1,000 mg Documented by: Aspirin (Aspirin 81 Mg Ectab) 81 mg PO [facility] Stop: 05/30/20 08:59 Last Admin: 05/06/20 08:16 Dose: 81 mg Documented by: Dextrose (Dextrose 50% 50 Ml Syringe) 25 - 50 ml IV UD PRN; Protocol PRN Reason: Hypoglycemia Protocol Stop: 05/29/20 19:59 Docusate Sodium (Docusate Sodium 100 Mg Cap) 100 mg PO [facility] Stop: 05/30/20 08:59 Last Admin: 05/06/20 08:16 Dose: 100 mg Documented by: Glucagon (Glucagon For Inj 1 Mg Vial) 1 mg IM UD PRN; Protocol PRN Reason: Hypoglycemia Protocol Stop: 05/29/20 19:59 Glucose (Glucose 40% Gel 15 Gm Tube) 15 - 30 gm PO UD PRN; Protocol PRN Reason: Hypoglycemia Protocol Stop: 05/29/20 19:59 Glucose (Glucose 10 Tabs/Tube) 4 - 8 tabs PO UD PRN; Protocol PRN Reason: Hypoglycemia Protocol Stop: 05/29/20 19:59 Heparin Sodium (Porcine) (Heparin Sod 5,000 Unit/0.5 Ml Vial) 5,000 units SQ Q12 [facility] Stop: 05/30/20 20:59 Last Admin: 05/06/20 08:16 Dose: 5,000 units Documented by: Dexamethasone 6 mg/ Syringe 1.5 mls @ 1 mls/min IV [facility] Stop: 05/30/20 08:59 Last Admin: 05/06/20 08:16 Dose: 1 mls/min Documented by: Ceftriaxone Sodium 1,000 mg/ (Dextrose) 50 mls @ 100 mls/hr IV Q24H [facility]; Protocol Stop: 05/06/20 23:50 Last Infusion: 05/05/20 21:28 Dose: Infused Documented by: Dextrose (D5w) 1,000 mls @ 80 mls/hr IV .[id number] [facility] Stop: 06/04/20 11:55 Last Admin: 05/06/20 00:04 Dose: 80 mls/hr Documented by: Insulin Aspart (Insulin Aspart 100 Units/Ml 3 Ml Pen) 0 units SC [facility] Stop: 06/03/20 20:59 Last Admin: 05/06/20 08:14 Dose: Not Given Documented by: Insulin Glargine (Insulin Glargine Solostar 100 Units/Ml 3 Ml Pen) 0 units SC BID [facility]; Protocol Stop: 05/30/20 20:59 Last Admin: 05/06/20 08:17 Dose: Not Given Documented by: Lorazepam (Lorazepam 0.5 Mg Tab) [facility] Stop: 05/30/20 08:59 Last Admin: 05/06/20 08:19 Dose: 0.5 mg Documented by: Miscellaneous (Carbohydrates For Hypoglycemia ) 15 - 30 gm PO PRN PRN PRN Reason: Hypoglycemia Treatment Stop: 05/29/20 19:59 Miscellaneous Information (Pharmacy Glycemic Mgmt Consult) 1 ea N/A UD PRN PRN Reason: Consult Stop: 05/29/20 23:54 Multivitamins/Minerals (Calcium 600mg + Vit D 400 Iu Tab) 1 [facility] Stop: 05/30/20 08:59 Last Admin: 05/06/20 08:16 Dose: 1 tab Documented by: Multivitamins/Minerals (Cerovite Adv Formula Tab) 1 tab PO [facility] Stop: 05/30/20 20:59 Last Admin: 05/05/20 20:55 Dose: 1 tab Documented by: Nystatin/Triamcinolone Acetonide (Nystatin/Triamcin Cr 15 Gm Tube) 1 appln EXT BID [facility] Stop: 05/30/20 08:59 Last Admin: 05/06/20 08:17 Dose: 1 appln Documented by: Ondansetron HCl (Ondansetron Inj 2 Mg/Ml 2 Ml Vial) 4 mg IV Q6H PRN PRN Reason: Nausea Stop: 05/29/20 23:00 Pantoprazole Sodium (Pantoprazole 40 Mg Tab) 40 mg PO [facility] Stop: 05/30/20 08:59 Last Admin: 05/06/20 08:17 Dose: 40 mg Documented by: Polyethylene Glycol (Polyethylene (Miralax) 17 Gm Pack) 17 gm PO DAILY PRN PRN Reason: Constipation Stop: 05/29/20 23:00 Quetiapine Fumarate (Quetiapine Fumarate 25 Mg Tablet) 50 mg PO [facility] Stop: 05/30/20 20:59 Last Admin: 05/05/20 20:55 Dose: 50 mg Documented by: Sennosides (Senna 8.6 Mg Tab) 8.6 mg PO DAILY [facility] Stop: 05/30/20 08:59 Last Admin: 05/06/20 08:17 Dose: 8.6 mg Documented by: Vitamin D (Cholecalciferol 1,000 Units 25 Mcg Tab) 2,000 units PO QAM [facility] Stop: 05/30/20 08:59 Last Admin: 05/06/20 08:17 Dose: 2,000 units Documented by: PG Care Time/CCT Total # of Minutes Spent Total Time Spent with Patient: Total time spent is greater than 50% in coordination of care (as documented) at patient's floor/unit and/or counseling patient: Coding Level of Care Code 54132 Subseq Hosp Care Lvl 2 Diagnoses Pneumonia due to COVID-19 virus U07.1; J12.89 Hypernatremia E87.0 Acute UTI N39.0 Acute kidney injury superimposed on CKD N17.9; N18.9 Agitated R45.1 Dementia F03.91 Dementia behavioral disturbance: with behavioral disturbance Dementia type: unspecified type Diabetes E11.9 Elevated troponin I level R77.8 DVT prophylaxis Z29.9 (1) Dementia Dementia behavioral disturbance: with behavioral disturbance Dementia type: unspecified type Qualified Code(s): F03.91 - Unspecified dementia with behavioral disturbance
[2020-05-06] MEDS: D5W AND 1/2NSS 1,000 ML IV SCH ×2 (10:23→21:42)
[2020-05-06] MEDS ORDERED: INSULIN GLARGINE SOLOSTAR 100 UNITS/ML 3 ML PEN SC ONE ×2 (12:30)
[2020-05-06] MEDS: CEROVITE ADV FORMULA TAB PO SCH (21:36)
[2020-05-06] MEDS: QUEtiapine FUMARATE 25 MG TABLET PO SCH (21:39)
[2020-05-06] MEDS: cefTRIAXone SODIUM 1,000 MG in DEXTROSE 5% 50 ML IV SCH (21:47)
[2020-05-07] MEDS: ASPIRIN 81 MG ECTAB PO SCH (07:55)
[2020-05-07] MEDS: PANTOprazole 40 MG TAB PO SCH (07:55)
[2020-05-07] MEDS: CALCIUM 600MG + VIT D 400 IU TAB PO SCH (07:55)
[2020-05-07] MEDS: LORazepam 0.5 MG TAB PO SCH (07:55)
[2020-05-07] MEDS: CHOLECALCIFEROL 1,000 UNITS 25 MCG TAB PO SCH (07:56)
[2020-05-07] MEDS: SENNA 8.6 MG TAB PO SCH (07:56)
[2020-05-07] MEDS: DOCUSATE SODIUM 100 MG CAP PO SCH (07:56)
[2020-05-07] MEDS: NYSTATIN/TRIAMCIN CR 15 GM TUBE EXT SCH ×2 (07:56→21:13)
[2020-05-07] MEDS: dexAMETHasone 6 MG in SYRINGE 0 ML IV SCH (07:57)
[2020-05-07] MEDS: HEPARIN SOD 5,000 UNIT/0.5 ML VIAL SQ SCH ×2 (07:57→21:09)
[2020-05-07] MEDS: INSULIN ASPART 100 UNITS/ML 3 ML PEN SC SCH ×6 (08:05→23:48)
[2020-05-07] MEDS: INSULIN GLARGINE SOLOSTAR 100 UNITS/ML 3 ML PEN SC SCH ×2 (08:49→21:07)
--- NOTE | 2020-05-07 09:50 | Pharmacy Report ---
Pharmacy Glycemic Short Note 2 - Date of Service May 07, 2020 - Glycemic Short BSG Results (Last 24 hours): 05/06/20 05/06/20 05/06/20 12:09 17:44 22:07 POC Glucose 240 H 254 H 191 H 05/07/20 08:01 POC Glucose 162 H OUTPATIENT ANTIDIABETIC REGIMEN: * NPH 18 units SQ qam, 12 units SQ qpm * A1C: 7.4% 03/01/19 ASSESSMENT: 05/07: * BSGs did rise with the addition of dextrose containing IVFs yesterday. BSGs did peak at 254 in the afternoon then trended down overnight. These fluids continue at the same rate this AM. Per discussion w/ RN today, still no NG in place. * "Fasting" BSG 162 this AM w/ 16 units Lantus on board but also w/ dextrose containing IVFs running * Will utilize a Q 4 hr scaled dose of Novolog to better cover the carbs delivered in IVFs. This regimen will provide a portion of the "basal" needs and may be more effective for maintaining glycemic control while IVF's running and will add an element of safety should the fluids be cut abruptly w/o improved PO intake. 05/05: * Patient received total of 21 units of insulin yesterday, of which 12 were basal insulin * BSGs trending up overnight - likely due to dextrose fluids ordered (1 liter x 1) * Fasting BSG this AM elevated at 241 mg/dL - will give small dose of Lantus to help with coverage. Fluids stopped this morning - plan to resume this afternoon - will continue with basal scale for HS * Goals of care discussed with patient, plan for no NG tube but okay to continue with IV fluids. Palliative care to help with goals of care PLAN FOR INPATIENT GLYCEMIC CONTROL: * Hold outpatient oral diabetes medications * Basal insulin * Lantus SQ BID per scale: * 0 units if BSG less than 140 * 7 units if BSG 140-200 * 10 units if BSG above 200 * Bolus insulin * NovoLog SQ Q 4 hrs:
[2020-05-07] MEDS: D5W AND 1/2NSS 1,000 ML IV SCH (11:21)
--- NOTE | 2020-05-07 12:31 | Palliative Care Consultation ---
Date of Consultation May 07, 2020 Assessment & Plan (1) Palliative care encounter: Ms. Wheeler is an 84 year old female who presented to the ED by her son with increased lethargy and decreased PO intake over the past few days. Additional PMH includes: cellulitis, T11 closed vertebral fracture, ventral hernia, osteoporosis, anxiety, GERD, acute kidney injury superimposed on chronic kidney disease, acute cholecystitis, type 2 diabetes mellitus with diabetic neuropathy, diabetic retinopathy, and severe dementia. The patient was diagnosed with COVID-19 Pneumonia and has completed treatment including steroids and Remdesivir. She also received treatment for a UTI. Unfortuantely, while her respiratory status has been relatively stable with COVID, she has experienced acute metabolic encephalopathy/delirium superimposed on dementia, which has made her overall prognosis guarded. Palliative care was consulted to discuss goals of care. -Case discussed with Dr. Phillips at start of consultation. Jayne, at baseline, lives at home with her son, Abiodun, and daughter in law. Original discussions with the hospitalist and son indicated that he would be of with IV fluids, but would not want artificial nutrition. -Unfortunately, Jayne's covid delirium is affecting her ability to eat and she is refusing food. -In talking with Abiodun ([phone]), he was clear regarding no artificial nutrition, including NGT or PEG tube. -If the patient does not improve and eat, she will not be able to sustain life. Abiodun is aware of this. -We discussed hospice and what it entails. Unfortunately, Abiodun and his also have COVID, but are doing well and are stable. Abiodun had numerous concerns about his mother returning home and getting her 'more sick'. I told him that none of the 3 of them are able to contact COVID from eachother if already positive. -Abiodun indicated that they have all equipment at home including a hospital bed, life chair, walker, and bedside table. Abiodun, understandably, was becoming overwhelmed. He is agreeable to talk to a hospice agency leather goods sales representative to gain a better understanding of Hospice. [place] in case management reached out to the patients and he expressed he would like to make a decision about this tomorrow. POLST would be helpful prior to discharge. No symptom management needs curently. (2) Pneumonia due to COVID-19 virus: (3) Confusion: (4) Agitation: History of Present Illness Reason for Consultation: Goals of Care Requesting Physician: Dr. Phillips Attending Physician: Mauro Phillips DO History of Present Illness Ms. Wheeler is an 84 year old female who presented to the ED by her son with increased lethargy and decreased PO intake over the past few days. Additional PMH includes: cellulitis, T11 closed vertebral fracture, ventral hernia, osteoporosis, anxiety, GERD, acute kidney injury superimposed on chronic kidney disease, acute cholecystitis, type 2 diabetes mellitus with diabetic neuropathy, diabetic retinopathy, and severe dementia. The patient was d iagnosed with COVID-19 Pneumonia and has completed treatment including steroids and Remdesivir. She also received treatment for a UTI. Unfortuantely, while her respiratory status has been relatively stable with COVID, she has experienced acute metabolic encephalopathy/delirium superimposed on dementia, which has made her overall prognosis guarded. Palliative care was consulted to discuss goals of care. Please see A/P for further details. Thank you for involving palliative care with Ms. Wheeler. Allergies Allergy/AdvReac Type Severity Reaction Status Date / Time No Known Allergies Allergy Unknown Verified 04/29/20 18:20 Home Medications Medication Instructions Recorded Confirmed Type aspirin 81 mg PO QAM 08/11/18 04/29/20 History calcium carbonate [Calcium 600] 600 mg PO QAM 02/28/19 04/29/20 History acetaminophen 500 mg tablet 1,000 mg PO Q8 PRN tab 04/01/19 04/29/20 History walker #1 ea 04/06/19 07/14/19 Rx cholecalciferol (vitamin D3) 2,000 units PO QAM 07/14/19 04/29/20 History docusate sodium 100 mg PO QAM 07/14/19 04/29/20 History multivit,stress formula-zinc 1 tab PO HS 07/14/19 04/29/20 History [Stress Formula with Zinc] sennosides 8.6 mg PO DAILY 07/14/19 04/29/20 History omeprazole 20 mg capsule,delayed 20 mg PO QAM #90 cap 07/27/19 04/29/20 Rx release quetiapine 50 mg tablet 50 mg PO HS #30 tab 10/11/19 04/29/20 Rx blood sugar diagnostic #400 ea 02/09/20 Rx insulin human U-100 NPH-regulr 1 sliding scale dose SUBCUT 02/09/20 04/29/20 Rx 70-30 mix 100 unit/mL subcutaneous USEASDIRECTD #40 ml susp insulin syringe-needle U-100 0.3 #200 ea 02/13/20 Rx mL 31 gauge x 09/30" nystatin-triamcinolone 100,000 1 applic TOP BID #30 gm 04/05/20 04/29/20 Rx unit/g-0.1 % topical cream lorazepam 0.5 mg tablet 0.5 mg PO QAM #30 tab 04/19/20 04/29/20 Rx Patient History Medical History (Updated 05/08/20 @ 00:11 by ISIAH Marshall) Agitation Confusion Dementia Diabetes Palliative care encounter Surgical History History of cholecystectomy History of ventral hernia repair Family History Father Diabetes Brother Diabetes Aunt Diabetes Mother Hypertension Social History Smoking Status: Never smoker Hx Alcohol Use: No Hx Substance Use: No Preferred Language: Somali Communication Ability: Effective Tube Puller Required: No Beliefs That Will Affect Care: None Current Living Situation: Family Current Living Situation Comment: son Feels Safe at Home: Yes Assistive Devices: None Review of Systems Review of Systems: Unobtainable due to cognitive status Physical Exam Physical Exam: deferred due to covid - 19 and patient not able to interact due to severe dementia. Results & Data ([facility]) Vital Signs (Past 12 Hours) Vital Signs Temp Pulse Resp BP Pulse Ox 05/07/20 07:39 36.5 C 73 16 138/68 92 PG Care Time/CCT Total # of Minutes Spent Total Time Spent with Patient: Total time spent is greater than 50% in coordination of care (as documented) at patient's floor/unit and/or counseling patient: 100 Coding Level of Care Code 01845 Inpt Consult Level 4 Diagnoses Palliative care encounter Z51.5 Pneumonia due to COVID-19 virus U07.1; J12.89 Confusion R41.0 Agitation R45.1 Time Spent (min) 100 Time Spent Midlevel Total time spent 100 minutes with > 50% of that time spent assessing the patient, discussing goals of care with pt son, and collaborating with IDT.
--- NOTE | 2020-05-07 16:31 | Hospitalist Progress Note ---
Date of Service May 07, 2020 Assessment & Plan (1) Pneumonia due to COVID-19 virus: Pneumonia due to COVID-19 virus with hypoxia. Pulse ox recorded as a low of 90% on room air; on 3L NC on admission. - Decadron 6 mg IV QAM (End date: 05/08/2020) - Finished remdesivir (End date: 05/04/2020) - titrated down to room air for a few days, no distress or increased work of breathing downgraded to medical bed palliative care consult today, likely planning for home hospice once family sets things up (2) Hypernatremia: stable at 139 yesterday. Volume depletion from poor PO intake. Free water deficit was ~1.5L. - changed to D5 1/2 NSS no need for labs as she is trending toward palliative care (3) Acute UTI: UA positive on admission. Culture grew ibarra-sensitive E. coli. - Ceftriaxone 1 g IV daily - finish 7-day course on 05/06/2020 no fever, vitals stable, adequately treated (4) Acute kidney injury superimposed on CKD: Creatinine 1.5 upon admission. Baseline Cr ~0.9, CKD stage III. - Follow Cr, it is down to 0.88 yesterday no further labs (5) Agitated: Acute metabolic encephalopathy from Covid and UTI, superimposed on dementia. - Reorient as able. Treat above. - Continue quetiapine not eating or drinking, guarded prognosis unclear how long COVID delirium can last palliative care is consulted, tentatively planning on hospice care (6) Dementia: See above (7) Diabetes: Glucose 450 upon admission. A1c was 7.4% in 2019. - Glycemic consult - Repeat A1c was 8.7%. - Sugars have been 130-200 in last 24 hours, continue to monitor closely for hypoglycemia/hyperglycemia (8) Elevated troponin I level: Troponin was 0.068 upon admission. Likely demand ischemia. - Continue ASA (9) DVT prophylaxis: Heparin 5,000 units SQ Q12h Admission and Anticipated Discharge Date Admission Date: April 29, 2020 Subjective patient continues to not eat or drink, she is reluctant to participate in her care or therapy she gets agitated with nurses she would not open her eyes or speak to me today discussed with palliative care after their discussion with patient's son, Abiodun they are recommending home with hospice, assured Abiodun that it is safe for her to go home with them having COVID as well CM will work with family on hospice agency and home equipment Review of Systems Review of Systems: Unobtainable due to cognitive status Physical Exam Constitutional: well developed, + frail appearing and + lethargic; no acute distress Neck: trachea midline, no thyromegaly Respiratory: normal respiratory effort, lungs clear to auscultation Cardiovascular: RRR, no murmur, no edema Gastrointestinal (Abdomen): normal bowel sounds, soft, nontender, no hepatosplenomegaly Musculoskeletal: Head/Neck/Chest: normocephalic, head atraumatic and neck supple Extremities: extremities normal to inspection and + abnormal strength (generalized weakness); no cyanosis, no clubbing and no petechiae Skin: no rashes, warm and dry Neurologic: awake and + confused; no focal motor deficits Psychiatric: Orientation: + guarded; + not alert, + not oriented to person, + not oriented to place, + not oriented to time and + uncooperative Lymphatic: no cervical or axillary lymphadenopathy Results & Data Results & Data ([facility]) Vital Signs (Past 12 Hours) Vital Signs Temp Pulse Resp BP Pulse Ox 05/07/20 07:39 36.5 C 73 16 138/68 92 Laboratory Results Laboratory Results - last 24 hr 05/06/20 05/07/20 05/07/20 22:07 08:01 11:58 POC Glucose 191 H 162 H 136 H 05/07/20 05/07/20 17:03 20:23 POC Glucose 212 H 203 H Medications Administered Current Inpatient Medications Acetaminophen (Acetaminophen 500 Mg Tab) 1,000 mg PO Q8 PRN PRN Reason: pain Stop: 05/29/20 23:00 Last Admin: 05/06/20 08:19 Dose: 1,000 mg Documented by: Aspirin (Aspirin 81 Mg Ectab) 81 mg PO QAM [facility] Stop: 05/30/20 08:59 Last Admin: 05/07/20 07:55 Dose: 81 mg Documented by: Dextrose (Dextrose 50% 50 Ml Syringe) 25 - 50 ml IV UD PRN; Protocol PRN Reason: Hypoglycemia Protocol Stop: 05/29/20 19:59 Docusate Sodium (Docusate Sodium 100 Mg Cap) [facility] Stop: 05/30/20 08:59 Last Admin: 12/21/20 07:56 Dose: 100 mg Documented by: Glucagon (Glucagon For Inj 1 Mg Vial) 1 mg IM UD PRN; Protocol PRN Reason: Hypoglycemia Protocol Stop: 05/29/20 19:59 Glucose (Glucose 40% Gel 15 Gm Tube) 15 - 30 gm PO UD PRN; Protocol PRN Reason: Hypoglycemia Protocol Stop: 05/29/20 19:59 Glucose (Glucose 10 Tabs/Tube) 4 - 8 tabs PO UD PRN; Protocol PRN Reason: Hypoglycemia Protocol Stop: 05/29/20 19:59 Heparin Sodium (Porcine) (Heparin Sod 5,000 Unit/0.5 Ml Vial) 5,000 units SQ Q12 PAM Stop: 05/30/20 20:59 Last Admin: 05/07/20 07:57 Dose: 5,000 units Documented by: Dexamethasone 6 mg/ Syringe 1.5 mls @ 1 mls/min IV QAM [facility] Stop: 05/30/20 08:59 Last Admin: 05/07/20 07:57 Dose: 1 mls/min Documented by: Dextrose/Sodium Chloride (D5w And 1/2nss) 1,000 mls @ 50 mls/hr IV .Q20H [facility] Stop: 06/05/20 09:44 Last Admin: 05/07/20 11:21 Dose: 50 mls/hr Documented by: Insulin Aspart (Insulin Aspart 100 Units/Ml 3 Ml Pen) 0 units SC Q4 [facility]; Protocol Stop: 06/06/20 07:59 Last Admin: 05/07/20 17:05 Dose: 4 units Documented by: Insulin Glargine (Insulin Glargine Solostar 100 Units/Ml 3 Ml Pen) 0 units SC BID [facility]; Protocol Stop: 05/30/20 20:59 Last Admin: 05/07/20 08:49 Dose: 7 units Documented by: Lorazepam (Lorazepam 0.5 Mg Tab) 0.5 mg PO QAM PAM Stop: 05/30/20 08:59 Last Admin: 05/07/20 07:55 Dose: 0.5 mg Documented by: Miscellaneous (Carbohydrates For Hypoglycemia ) 15 - 30 gm PO PRN PRN PRN Reason: Hypoglycemia Treatment Stop: 05/29/20 19:59 Miscellaneous Information (Pharmacy Glycemic Mgmt Consult) 1 ea N/A UD PRN PRN Reason: Consult Stop: 05/29/20 23:54 Multivitamins/Minerals (Calcium 600mg + Vit D 400 Iu Tab) 1 tab PO QAM [facility] Stop: 05/30/20 08:59 Last Admin: 05/07/20 07:55 Dose: 1 tab Documented by: Multivitamins/Minerals (Cerovite Adv Formula Tab) 1 tab PO HS [facility] Stop: 05/30/20 20:59 Last Admin: 05/06/20 21:36 Dose: 1 tab Documented by: Nystatin/Triamcinolone Acetonide (Nystatin/Triamcin Cr 15 Gm Tube) 1 appln EXT BID [facility] Stop: 05/30/20 08:59 Last Admin: 05/07/20 07:56 Dose: 1 appln Documented by: Ondansetron HCl (Ondansetron Inj 2 Mg/Ml 2 Ml Vial) 4 mg IV Q6H PRN PRN Reason: Nausea Stop: 05/29/20 23:00 Pantoprazole Sodium (Pantoprazole 40 Mg Tab) 40 mg PO QAM [facility] Stop: 05/30/20 08:59 Last Admin: 05/07/20 07:55 Dose: 40 mg Documented by: Polyethylene Glycol (Polyethylene (Miralax) 17 Gm Pack) 17 gm PO DAILY PRN PRN Reason: Constipation Stop: 05/29/20 23:00 Quetiapine Fumarate (Quetiapine Fumarate 25 Mg Tablet) 50 mg PO [facility] Stop: 05/30/20 20:59 Last Admin: 05/06/20 21:39 Dose: 50 mg Documented by: Sennosides (Senna 8.6 Mg Tab) 8.6 mg PO DAILY [facility] Stop: 05/30/20 08:59 Last Admin: 05/07/20 07:56 Dose: 8.6 mg Documented by: Vitamin D (Cholecalciferol 1,000 Units 25 Mcg Tab) 2,000 units PO QAM [facility] Stop: 05/30/20 08:59 Last Admin: 05/07/20 07:56 Dose: 2,000 units Documented by: PG Care Time/CCT Total # of Minutes Spent Total Time Spent with Patient: Total time spent is greater than 50% in coordination of care (as documented) at patient's floor/unit and/or counseling patient: Coding Level of Care Code 97961 Subseq Hosp Care Lvl 2 Diagnoses Pneumonia due to COVID-19 virus U07.1; J12.89 Hypernatremia E87.0 Acute UTI N39.0 Acute kidney injury superimposed on CKD N17.9; N18.9 Agitated R45.1 Dementia F03.91 Dementia behavioral disturbance: with behavioral disturbance Dementia type: unspecified type Diabetes E11.9 Elevated troponin I level R77.8 DVT prophylaxis Z29.9 (1) Dementia Dementia behavioral disturbance: with behavioral disturbance Dementia type: unspecified type Qualified Code(s): F03.91 - Unspecified dementia with behavioral disturbance
[2020-05-07] MEDS: QUEtiapine FUMARATE 25 MG TABLET PO SCH (21:32)
[2020-05-07] MEDS: CEROVITE ADV FORMULA TAB PO SCH (21:32)
[2020-05-08] MEDS: INSULIN ASPART 100 UNITS/ML 3 ML PEN SC SCH ×5 (04:29→21:48)
[2020-05-08] MEDS: D5W AND 1/2NSS 1,000 ML IV SCH (06:22)
[2020-05-08] MEDS: dexAMETHasone 6 MG in SYRINGE 0 ML IV SCH (08:42)
[2020-05-08] MEDS: NYSTATIN/TRIAMCIN CR 15 GM TUBE EXT SCH ×2 (08:42→20:19)
[2020-05-08] MEDS: ASPIRIN 81 MG ECTAB PO SCH (08:43)
[2020-05-08] MEDS: HEPARIN SOD 5,000 UNIT/0.5 ML VIAL SQ SCH ×2 (08:43→20:16)
[2020-05-08] MEDS: CHOLECALCIFEROL 1,000 UNITS 25 MCG TAB PO SCH (08:43)
[2020-05-08] MEDS: LORazepam 0.5 MG TAB PO SCH (08:45)
[2020-05-08] MEDS: ACETAMINOPHEN 500 MG TAB PO PRN (09:08)
[2020-05-08] MEDS: INSULIN GLARGINE SOLOSTAR 100 UNITS/ML 3 ML PEN SC SCH ×2 (09:09→21:48)
[2020-05-08] MEDS: PANTOprazole 40 MG TAB PO SCH (09:10)
[2020-05-08] MEDS: CALCIUM 600MG + VIT D 400 IU TAB PO SCH (09:10)
[2020-05-08] MEDS: DOCUSATE SODIUM 100 MG CAP PO SCH (09:10)
[2020-05-08] MEDS: SENNA 8.6 MG TAB PO SCH (09:10)
--- NOTE | 2020-05-08 14:45 | Pharmacy Report ---
Pharmacy Glycemic Short Note 2 - Date of Service May 08, 2020 - Glycemic Short BSG Results (Last 24 hours): 05/07/20 05/07/20 05/07/20 17:03 20:23 23:32 POC Glucose 212 H 203 H 204 H 05/08/20 05/08/20 05/08/20 04:14 08:07 11:57 POC Glucose 110 H 70 101 H OUTPATIENT ANTIDIABETIC REGIMEN: * NPH 18 units SQ qam, 12 units SQ qpm * A1C: 7.4% 03/01/19 ASSESSMENT: 05/08/20: * BSGs have been relatively well-controlled following the switch to the q4h Novolog scale yesterday. * Fasting BSG was below goal this morning, so Lantus scale was reduced. 05/07: * BSGs did rise with the addition of dextrose containing IVFs yesterday. BSGs did peak at 254 in the afternoon then trended down overnight. These fluids continue at the same rate this AM. Per discussion w/ RN today, still no NG in place. * "Fasting" BSG 162 this AM w/ 16 units Lantus on board but also w/ dextrose containing IVFs running * Will utilize a Q 4 hr scaled dose of Novolog to better cover the carbs delivered in IVFs. This regimen will provide a portion of the "basal" needs and may be more effective for maintaining glycemic control while IVF's running and will add an element of safety should the fluids be cut abruptly w/o improved PO intake. 05/05: * Patient received total of 21 units of insulin yesterday, of which 12 were basal insulin * BSGs trending up overnight - likely due to dextrose fluids ordered (1 liter x 1) * Fasting BSG this AM elevated at 241 mg/dL - will give small dose of Lantus to help with coverage. Fluids stopped this morning - plan to resume this afternoon - will continue with basal scale for HS * Goals of care discussed with patient, plan for no NG tube but okay to continue with IV fluids. Palliative care to help with goals of care PLAN FOR INPATIENT GLYCEMIC CONTROL: * Hold outpatient oral diabetes medications * Basal insulin * Lantus SQ BID per scale: * 0 units if BSG less than 100 mg/dL * 8 units if BSG 100 mg/dL or greater * Bolus insulin * NovoLog SQ Q 4 hrs:
--- NOTE | 2020-05-08 16:08 | Hospitalist Progress Note ---
Date of Service May 08, 2020 Assessment & Plan (1) Pneumonia due to COVID-19 virus: Pneumonia due to COVID-19 virus with hypoxia. Pulse ox recorded as a low of 90% on room air; on 3L NC on admission. - Decadron 6 mg IV QAM (End date: 05/08/2020) - Finished remdesivir (End date: 05/04/2020) - titrated down to room air for a few days, no distress or increased work of breathing downgraded to medical bed palliative care consult 05/07, likely planning for home hospice once family sets things up CM reaching out to family, no success today (2) Hypernatremia: stable at 139 yesterday. Volume depletion from poor PO intake. Free water deficit was ~1.5L. - changed to D5 05/19 NSS no need for labs as she is trending toward palliative care (3) Acute UTI: UA positive on admission. Culture grew ibarra-sensitive E. coli. - Ceftriaxone 1 g IV daily - finish 7-day course on 05/06/2020 no fever, vitals stable, adequately treated (4) Acute kidney injury superimposed on CKD: Creatinine 1.5 upon admission. Baseline Cr ~0.9, CKD stage III. - Follow Cr, it is down to 0.88 yesterday no further labs (5) Agitated: Acute metabolic encephalopathy from Covid and UTI, superimposed on dementia. - Reorient as able. Treat above. - Continue quetiapine (she would not take 05/08) will give haldol IM 5mg q6 PRN not eating or drinking, guarded prognosis unclear how long COVID delirium can last palliative care is consulted, tentatively planning on hospice care (6) Dementia: See above (7) Diabetes: Glucose 450 upon admission. A1c was 7.4% in 2019. - Glycemic consult - Repeat A1c was 8.7%. - Sugars have been 70-100 in last 24 hours, continue to monitor closely (8) Elevated troponin I level: Troponin was 0.068 upon admission. Likely demand ischemia. - Continue ASA (9) DVT prophylaxis: Heparin 5,000 units SQ Q12h Admission and Anticipated Discharge Date Admission Date: April 29, 2020 Subjective patient would not take Seroquel this morning she is more agitated, yelling out will give Haldol spoke with CM, they are trying to contact her son Abiodun but no answer working on getting home hospice arranged Review of Systems Review of Systems: Unobtainable due to cognitive status Physical Exam Constitutional: well developed, + frail appearing and + lethargic; no acute distress Neck: trachea midline, no thyromegaly Respiratory: normal respiratory effort, lungs clear to auscultation Cardiovascular: RRR, no murmur, no edema Gastrointestinal (Abdomen): normal bowel sounds, soft, nontender, no hepatosplenomegaly Musculoskeletal: Head/Neck/Chest: normocephalic, head atraumatic and neck supple Extremities: extremities normal to inspection and + abnormal strength (generalized weakness); no cyanosis, no clubbing and no petechiae Skin: no rashes, warm and dry Neurologic: awake and + confused; no focal motor deficits Psychiatric: Orientation: + guarded; + not alert, + not oriented to person, + not oriented to place, + not oriented to time and + uncooperative Lymphatic: no cervical or axillary lymphadenopathy Results & Data Results & Data ([facility]) Vital Signs (Past 12 Hours) Vital Signs Temp Pulse Resp BP Pulse Ox 05/08/20 15:22 36.5 C 68 16 136/74 96 05/08/20 07:24 36.9 C 99 H 20 150/78 H 95 Medications Administered Current Inpatient Medications Acetaminophen (Acetaminophen 500 Mg Tab) 1,000 mg PO Q8 PRN PRN Reason: pain Stop: 05/29/20 23:00 Last Admin: 05/08/20 09:08 Dose: 1,000 mg Documented by: Aspirin (Aspirin 81 Mg Ectab) 81 mg PO [facility] Stop: 05/30/20 08:59 Last Admin: 05/08/20 08:43 Dose: 81 mg Documented by: Dextrose (Dextrose 50% 50 Ml Syringe) 25 - 50 ml IV UD PRN; Protocol PRN Reason: Hypoglycemia Protocol Stop: 05/29/20 19:59 Docusate Sodium (Docusate Sodium 100 Mg Cap) 100 mg PO [facility] Stop: 05/30/20 08:59 Last Admin: 05/08/20 09:10 Dose: Not Given Documented by: Glucagon (Glucagon For Inj 1 Mg Vial) 1 mg IM UD PRN; Protocol PRN Reason: Hypoglycemia Protocol Stop: 05/29/20 19:59 Glucose (Glucose 40% Gel 15 Gm Tube) 15 - 30 gm PO UD PRN; Protocol PRN Reason: Hypoglycemia Protocol Stop: 05/29/20 19:59 Glucose (Glucose 10 Tabs/Tube) 4 - 8 tabs PO UD PRN; Protocol PRN Reason: Hypoglycemia Protocol Stop: 05/29/20 19:59 Haloperidol Lactate (Haloperidol Lactate 5 Mg/Ml 1 Ml Vial) 5 mg IM Q6H PRN PRN Reason: Anxiety/Agitation Stop: 06/07/20 16:07 Heparin Sodium (Porcine) (Heparin Sod 5,000 Unit/0.5 Ml Vial) 5,000 units SQ Q12 [facility] Stop: 05/30/20 20:59 Last Admin: 05/08/20 08:43 Dose: 5,000 units Documented by: Dexamethasone 6 mg/ Syringe 1.5 mls @ 1 mls/min IV QAM [facility] Stop: 05/30/20 08:59 Last Admin: 05/08/20 08:42 Dose: 1 mls/min Documented by: Dextrose/Sodium Chloride (D5w And 1/2nss) 1,000 mls @ 50 mls/hr IV .Q20H [facility] Stop: 06/05/20 09:44 Last Infusion: 05/08/20 14:40 Dose: 50 mls/hr Documented by: Insulin Aspart (Insulin Aspart 100 Units/Ml 3 Ml Pen) 0 units SC Q4 [facility]; Protocol Stop: 06/06/20 07:59 Last Admin: 05/08/20 12:47 Dose: Not Given Documented by: Insulin Glargine (Insulin Glargine Solostar 100 Units/Ml 3 Ml Pen) 0 units SC BID [facility]; Protocol Stop: 05/30/20 20:59 Last Admin: 05/08/20 09:09 Dose: Not Given Documented by: Lorazepam (Lorazepam 0.5 Mg Tab) 0.5 mg PO QAM [facility] Stop: 05/30/20 08:59 Last Admin: 05/08/20 08:45 Dose: 0.5 mg Documented by: Miscellaneous (Carbohydrates For Hypoglycemia ) 15 - 30 gm PO PRN PRN PRN Reason: Hypoglycemia Treatment Stop: 05/29/20 19:59 Miscellaneous Information (Pharmacy Glycemic Mgmt Consult) 1 ea N/A UD PRN PRN Reason: Consult Stop: 05/29/20 23:54 Multivitamins/Minerals (Calcium 600mg + Vit D 400 Iu Tab) 1 tab PO QAM [facility] Stop: 05/30/20 08:59 Last Admin: 05/08/20 09:10 Dose: Not Given Documented by: Multivitamins/Minerals (Cerovite Adv Formula Tab) 1 tab PO [facility] Stop: 05/30/20 20:59 Last Admin: 05/07/20 21:32 Dose: Not Given Documented by: Nystatin/Triamcinolone Acetonide (Nystatin/Triamcin Cr 15 Gm Tube) 1 appln EXT BID [facility] Stop: 05/30/20 08:59 Last Admin: 05/08/20 08:42 Dose: 1 appln Documented by: Ondansetron HCl (Ondansetron Inj 2 Mg/Ml 2 Ml Vial) 4 mg IV Q6H PRN PRN Reason: Nausea Stop: 05/29/20 23:00 Pantoprazole Sodium (Pantoprazole 40 Mg Tab) [facility] Stop: 05/30/20 08:59 Last Admin: 05/08/20 09:10 Dose: Not Given Documented by: Polyethylene Glycol (Polyethylene (Miralax) 17 Gm Pack) 17 gm PO DAILY PRN PRN Reason: Constipation Stop: 05/29/20 23:00 Quetiapine Fumarate (Quetiapine Fumarate 25 Mg Tablet) 50 mg PO [facility] Stop: 05/30/20 20:59 Last Admin: 05/07/20 21:32 Dose: Not Given Documented by: Sennosides (Senna 8.6 Mg Tab) 8.6 mg PO DAILY [facility] Stop: 05/30/20 08:59 Last Admin: 05/08/20 09:10 Dose: Not Given Documented by: Vitamin D (Cholecalciferol 1,000 Units 25 Mcg Tab) 2,000 units PO QAM [facility] Stop: 05/30/20 08:59 Last Admin: 05/08/20 08:43 Dose: 2,000 units Documented by: PG Care Time/CCT Total # of Minutes Spent Total Time Spent with Patient: Total time spent is greater than 50% in coord ination of care (as documented) at patient's floor/unit and/or counseling patient: Coding Level of Care Code 02516 Subseq Hosp Care Lvl 2 Diagnoses Pneumonia due to COVID-19 virus U07.1; J12.89 Hypernatremia E87.0 Acute UTI N39.0 Acute kidney injury superimposed on CKD N17.9; N18.9 Agitated R45.1 Dementia F03.91 Dementia behavioral disturbance: with behavioral disturbance Dementia type: unspecified type Diabetes E11.9 Elevated troponin I level R77.8 DVT prophylaxis Z29.9 (1) Dementia Dementia behavioral disturbance: with behavioral disturbance Dementia type: unspecified type Qualified Code(s): F03.91 - Unspecified dementia with behavioral disturbance
[2020-05-08] MEDS: HALOPERIDOL LACTATE 5 MG/ML 1 ML VIAL IM PRN ×2 (16:39→22:46)
[2020-05-08] MEDS: QUEtiapine FUMARATE 25 MG TABLET PO SCH (20:17)
[2020-05-08] MEDS: CEROVITE ADV FORMULA TAB PO SCH (20:17)
[2020-05-09] MEDS: INSULIN ASPART 100 UNITS/ML 3 ML PEN SC SCH ×7 (00:18→23:53)
[2020-05-09] MEDS: HALOPERIDOL LACTATE 5 MG/ML 1 ML VIAL IM PRN (06:21)
[2020-05-09] MEDS: LORazepam 0.5 MG TAB PO SCH (07:38)
[2020-05-09] MEDS: dexAMETHasone 6 MG in SYRINGE 0 ML IV SCH ×2 (07:39→09:52)
[2020-05-09] MEDS: HEPARIN SOD 5,000 UNIT/0.5 ML VIAL SQ SCH ×2 (07:40→21:22)
[2020-05-09] MEDS: ASPIRIN 81 MG ECTAB PO SCH (07:41)
[2020-05-09] MEDS: SENNA 8.6 MG TAB PO SCH (07:41)
[2020-05-09] MEDS: CALCIUM 600MG + VIT D 400 IU TAB PO SCH (07:41)
[2020-05-09] MEDS: CHOLECALCIFEROL 1,000 UNITS 25 MCG TAB PO SCH (07:41)
[2020-05-09] MEDS: DOCUSATE SODIUM 100 MG CAP PO SCH (07:41)
[2020-05-09] MEDS: NYSTATIN/TRIAMCIN CR 15 GM TUBE EXT SCH ×2 (07:41→21:22)
[2020-05-09] MEDS: PANTOprazole 40 MG TAB PO SCH (07:42)
--- NOTE | 2020-05-09 14:06 | Pharmacy Report ---
Glycemic Control Progress Note - Date of Service May 09, 2020 - Scope Glycemic Pharmacist consulted for glycemic control to write orders per [facility] inpatient glycemic control protocol. - Objective Accuchecks BSG(last 24 hours):: 05/08/20 05/08/20 05/09/20 17:17 21:06 00:06 POC Glucose 168 H 132 H 107 H 05/09/20 05/09/20 05/09/20 03:51 07:35 12:03 POC Glucose 103 H 124 H 144 H HbA1c:: Hemoglobin A1c 8.7 % (4.5-5.6) H 05/01/20 05:42 - Recent Pertinent Medications The patient is currently receiving: * Basal insulin: Lantus 8 units every 12 hours ( hold if BSG <100 mg/dL) * Correctional Insulin: Novolog Correction per scale ACHS Goal Range: Low 110 mg/dL - High 140 mg/dL Correction Factor: (per scale) mg/dL/unit * Prandial insulin: Per carb ratio of 1 unit per 6 grams CHO consumed - Outpatient Anti-Diabetic Meds Novolin 70/30 -- 18 units in the morning and 12 units in the evening (can be adjusted based upon PO intake) - Assessment & Plan ASSESSMENT: * See progress note from 04/30/20 for more background info, in short: * Pt receiving SQ basal bolus insulin regimen for hyperglycemia secondary to baseline DM (outpatient regimen on hold). Steroids are being held since patient pulled out IV site. No new site has been placed. * Patient is currently receiving an average of 13 units of insulin per day * 8 units of basal insulin * 5 units of prandial/correctional insulin * BSGs ranging 70 - 168 mg/dl over the past 24hrs * Changes needed to insulin regimen: * AM Fasting BSG = 124 mg/dl. This is in goal range for patient based on inpatient targets and co-morbidities. Will plan to switch to once daily Lantus for now since patient is most likely going home on hospice with decreased PO intake. Increase slightly to 10 units. * Post-prandial BSGs were controlled yesterday but patient had minimal PO intake. D5 IVF on hold due to lack of IV site. Loosen carbohydrate ratio since patient not receiving steroids * Total daily dose is TBD since PO intake changing and steroids stopped. PLAN FOR INPATIENT GLYCEMIC CONTROL: * STARTING Lantus 10 units SQ HS * Continuing correction factor per scale * LOOSENING carb ratio to 1 unit per 10 grams CHO consumed * Continuing goal range of Low 110 mg/dL - High 140 mg/dL RECOMMENDATIONS FOR DISCHARGE: * Most likely patient is to go home on hospice. * Recommend discontinuation of Novolin 70/30 due to uncertain PO intake. * Recommend once daily Lantus injections to help control blood sugars as well as for ease of administration. * currently dose is Lantus 10 units nightly. * This may require titration and dose will be updated as needed. Thank you.
[2020-05-09] MEDS: QUEtiapine FUMARATE 25 MG TABLET PO SCH (20:55)
[2020-05-09] MEDS: CEROVITE ADV FORMULA TAB PO SCH (20:55)
[2020-05-09] MEDS ORDERED: INSULIN GLARGINE SOLOSTAR 100 UNITS/ML 3 ML PEN SC SCH (21:00)
[2020-05-10] MEDS: INSULIN ASPART 100 UNITS/ML 3 ML PEN SC SCH ×5 (04:08→22:34)
[2020-05-10] MEDS: PANTOprazole 40 MG TAB PO SCH (10:00)
[2020-05-10] MEDS: LORazepam 0.5 MG TAB PO SCH (10:00)
[2020-05-10] MEDS: ASPIRIN 81 MG ECTAB PO SCH (10:01)
[2020-05-10] MEDS: HEPARIN SOD 5,000 UNIT/0.5 ML VIAL SQ SCH (10:01)
[2020-05-10] MEDS: SENNA 8.6 MG TAB PO SCH (10:02)
[2020-05-10] MEDS: CHOLECALCIFEROL 1,000 UNITS 25 MCG TAB PO SCH (10:02)
[2020-05-10] MEDS: CALCIUM 600MG + VIT D 400 IU TAB PO SCH (10:03)
[2020-05-10] MEDS: DOCUSATE SODIUM 100 MG CAP PO SCH (10:06)
[2020-05-10] MEDS: NYSTATIN/TRIAMCIN CR 15 GM TUBE EXT SCH ×2 (10:07→21:01)
--- NOTE | 2020-05-10 13:39 | Pharmacy Report ---
Glycemic Control Progress Note - Date of Service May 10, 2020 - Scope Glycemic Pharmacist consulted for glycemic control to write orders per [facility] inpatient glycemic control protocol. - Objective Accuchecks BSG(last 24 hours):: 05/09/20 05/09/20 05/09/20 17:11 20:05 23:40 POC Glucose 117 H 105 H 102 H 05/10/20 05/10/20 05/10/20 03:18 08:11 13:22 POC Glucose 111 H 122 H 146 H HbA1c:: Hemoglobin A1c 8.7 % (4.5-5.6) H 05/01/20 05:42 - Recent Pertinent Medications The patient is currently receiving: * Basal insulin: Lantus 10 units every 24 hours * Correctional Insulin: Novolog Correction per scale ACHS Goal Range: Low 110 mg/dL - High 140 mg/dL Correction Factor: (per scale) mg/dL/unit * Prandial insulin: Per carb ratio of 1 unit per 10 grams CHO consumed - Outpatient Anti-Diabetic Meds NPH 18 units AM NPH 12 units PM - Assessment & Plan ASSESSMENT: * See progress note from 04/30/20 for more background info, in short: * Pt receiving SQ basal bolus insulin regimen for hyperglycemia secondary to baseline DM (outpatient regimen on hold). * Patient is currently receiving an average of 15 units of insulin per day * 10 units of basal insulin * 5 units of prandial/correctional insulin * BSGs ranging 102 - 144 mg/dl over the past 24hrs * Changes needed to insulin regimen: * AM Fasting BSG = 122 mg/dl. This is in goal range for patient based on inpatient targets and co-morbidities. Therefore Basal insulin will be continued at Lantus 10 units daily. * Post-prandial BSGs are in range --- will start Novolog CF 25 CR 9 ACHS to reduce checks. * Total daily dose = ~15 units. PLAN FOR INPATIENT GLYCEMIC CONTROL: * Continuing Lantus 10 units SQ HS * STARTING correction factor of 25 mg/dl/unit * Continuing carb ratio of 1 unit per 9 grams CHO consumed * Continuing goal range of Low 110 mg/dL - High 140 mg/dL RECOMMENDATIONS FOR DISCHARGE: * Most likely patient is to go home on hospice. * Recommend discontinuation of Novolin 70/30 due to uncertain PO intake. * Recommend once daily Lantus injections to help control blood sugars as well as for ease of administration. * currently dose is Lantus 10 units nightly. * This may require titration and dose will be updated as needed. Thank you.
--- NOTE | 2020-05-10 16:34 | Hospitalist Progress Note ---
Date of Service May 10, 2020 Assessment & Plan (1) Pneumonia due to COVID-19 virus: Pneumonia due to COVID-19 virus with hypoxia. Pulse ox recorded as a low of 90% on room air; on 3L NC on admission. - Decadron 6 mg IV QAM (End date: 05/08/2020) - Finished remdesivir (End date: 05/04/2020) - titrated down to room air for a few days, no distress or increased work of breathing downgraded to medical bed palliative care consult 05/07, move forward with hospice originally going home with hospice, now will go with SNF, working on placement (2) Hypernatremia: stable at 139 yesterday. Volume depletion from poor PO intake. Free water deficit was ~1.5L. - changed to D5 05/19 NSS no need for labs as she is trending toward palliative care fluids stopped (3) Acute UTI: UA positive on admission. Culture grew ibarra-sensitive E. coli. - Ceftriaxone 1 g IV daily - finish 7-day course on 05/06/2020 no fever, vitals stable, adequately treated (4) Acute kidney injury superimposed on CKD: Creatinine 1.5 upon admission. Baseline Cr ~0.9, CKD stage III. - Follow Cr, it is down to 0.88 05/08 no further labs (5) Agitated: Acute metabolic encephalopathy from Covid and UTI, superimposed on dementia. - Reorient as able. Treat above. - Continue quetiapine (she would not take 05/08) will give haldol IM 5mg q6 PRN not eating or drinking, guarded prognosis unclear how long COVID delirium can last palliative care is consulted, planning on hospice care (6) Dementia: See above (7) Diabetes: Glucose 450 upon admission. A1c was 7.4% in 2019. - Glycemic consult - Repeat A1c was 8.7%. - Sugars have been 70-100 in last 24 hours, continue to monitor closely (8) Elevated troponin I level: Troponin was 0.068 upon admission. Likely demand ischemia. - Continue ASA (9) DVT prophylaxis: Heparin 5,000 units SQ Q12h Admission and Anticipated Discharge Date Admission Date: April 29, 2020 Subjective patient is stable d/w CM, working on placement for hospice care, might be difficult as she cannot participate in therapy Review of Systems Review of Systems: Unobtainable due to cognitive status Physical Exam Constitutional: well developed, + frail appearing and + lethargic; no acute distress Neck: trachea midline, no thyromegaly Respiratory: normal respiratory effort, lungs clear to auscultation Cardiovascular: RRR, no murmur, no edema Gastrointestinal (Abdomen): normal bowel sounds, soft, nontender, no hepatosplenomegaly Musculoskeletal: Head/Neck/Chest: normocephalic, head atraumatic and neck supple Extremities: extremities normal to inspection and + abnormal strength (generalized weakness); no cyanosis, no clubbing and no petechiae Skin: no rashes, warm and dry Neurologic: awake and + confused; no focal motor deficits Psychiatric: Orientation: + guarded; + not alert, + not oriented to person, + not oriented to place, + not oriented to time and + uncooperative Lymphatic: no cervical or axillary lymphadenopathy Results & Data Results & Data ([facility]) Vital Signs (Past 12 Hours) Vital Signs Temp Pulse Resp BP Pulse Ox 05/10/20 15:40 36.4 C L 72 18 109/67 92 05/10/20 07:38 36.6 C 102 H 16 136/83 90 Laboratory Results Laboratory Results - last 24 hr 05/09/20 05/09/20 05/09/20 17:11 20:05 23:40 POC Glucose 117 H 105 H 102 H 05/10/20 05/10/20 05/10/20 03:18 08:11 13:22 POC Glucose 111 H 122 H 146 H Medications Administered Current Inpatient Medications Acetaminophen (Acetaminophen 500 Mg Tab) 1,000 mg PO Q8 PRN PRN Reason: pain Stop: 05/29/20 23:00 Last Admin: 05/08/20 09:08 Dose: 1,000 mg Documented by: Aspirin (Aspirin 81 Mg Ectab) 81 mg PO [facility] Stop: 05/30/20 08:59 Last Admin: 05/10/20 10:01 Dose: 81 mg Documented by: Dextrose (Dextrose 50% 50 Ml Syringe) 25 - 50 ml IV UD PRN; Protocol PRN Reason: Hypoglycemia Protocol Stop: 05/29/20 19:59 Docusate Sodium (Docusate Sodium 100 Mg Cap) 100 mg PO [facility] Stop: 05/30/20 08:59 Last Admin: 05/10/20 10:06 Dose: 100 mg Documented by: Glucagon (Glucagon For Inj 1 Mg Vial) 1 mg IM UD PRN; Protocol PRN Reason: Hypoglycemia Protocol Stop: 05/29/20 19:59 Glucose (Glucose 40% Gel 15 Gm Tube) 15 - 30 gm PO UD PRN; Protocol PRN Reason: Hypoglycemia Protocol Stop: 05/29/20 19:59 Glucose (Glucose 10 Tabs/Tube) 4 - 8 tabs PO UD PRN; Protocol PRN Reason: Hypoglycemia Protocol Stop: 05/29/20 19:59 Haloperidol Lactate (Haloperidol Lactate 5 Mg/Ml 1 Ml Vial) 5 mg IM Q6H PRN PRN Reason: Anxiety/Agitation Stop: 06/07/20 16:07 Last Admin: 05/09/20 06:21 Dose: 5 mg Documented by: Heparin Sodium (Porcine) (Heparin Sod 5,000 Unit/0.5 Ml Vial) 5,000 units SQ Q12 [facility] Stop: 05/30/20 20:59 Last Admin: 05/10/20 10:01 Dose: 5,000 units Documented by: Dextrose/Sodium Chloride (D5w And 1/2nss) 1,000 mls @ 50 mls/hr IV .Q20H [facility] Stop: 06/05/20 09:44 Last Infusion: 05/08/20 18:42 Dose: Infused Documented by: Insulin Aspart (Insulin Aspart 100 Units/Ml 3 Ml Pen) 0 units SC ACHS [facility] Stop: 06/09/20 16:29 Insulin Glargine (Insulin Glargine Solostar 100 Units/Ml 3 Ml Pen) 10 units SC HS [facility] Stop: 06/08/20 20:59 Last Admin: 05/09/20 21:55 Dose: Not Given Documented by: Lorazepam (Lorazepam 0.5 Mg Tab) 0.5 mg PO QAM [facility] Stop: 05/30/20 08:59 Last Admin: 05/10/20 10:00 Dose: 0.5 mg Documented by: Miscellaneous (Carbohydrates For Hypoglycemia ) 15 - 30 gm PO PRN PRN PRN Reason: Hypoglycemia Treatment Stop: 05/29/20 19:59 Miscellaneous Information (Pharmacy Glycemic Mgmt Consult) 1 ea N/A UD PRN PRN Reason: Consult Stop: 05/29/20 23:54 Multivitamins/Minerals (Calcium 600mg + Vit D 400 Iu Tab) 1 tab PO QAM [facility] Stop: 05/30/20 08:59 Last Admin: 05/10/20 10:03 Dose: 1 tab Documented by: Multivitamins/Minerals (Cerovite Adv Formula Tab) 1 tab PO HS [facility] Stop: 05/30/20 20:59 Last Admin: 05/09/20 20:55 Dose: Not Given Documented by: Nystatin/Triamcinolone Acetonide (Nystatin/Triamcin Cr 15 Gm Tube) 1 appln EXT BID [facility] Stop: 05/30/20 08:59 Last Admin: 05/10/20 10:07 Dose: 1 appln Documented by: Ondansetron HCl (Ondansetron Inj 2 Mg/Ml 2 Ml Vial) 4 mg IV Q6H PRN PRN Reason: Nausea Stop: 05/29/20 23:00 Pantoprazole Sodium (Pantoprazole 40 Mg Tab) 40 mg PO QAM [facility] Stop: 05/30/20 08:59 Last Admin: 05/10/20 10:00 Dose: 40 mg Documented by: Polyethylene Glycol (Polyethylene (Miralax) 17 Gm Pack) 17 gm PO DAILY PRN PRN Reason: Constipation Stop: 05/29/20 23:00 Quetiapine Fumarate (Quetiapine Fumarate 25 Mg Tablet) 50 mg PO [facility] Stop: 05/30/20 20:59 Last Admin: 05/09/20 20:55 Dose: 50 mg Documented by: Sennosides (Senna 8.6 Mg Tab) 8.6 mg PO DAILY [facility] Stop: 05/30/20 08:59 Last Admin: 05/10/20 10:02 Dose: 8.6 mg Documented by: Vitamin D (Cholecalciferol 1,000 Units 25 Mcg Tab) 2,000 units PO QAM [facility] Stop: 05/30/20 08:59 Last Admin: 05/10/20 10:02 Dose: 2,000 units Documented by: PG Care Time/CCT Total # of Minutes Spent Total Time Spent with Patient: Total time spent is greater than 50% in coordination of care (as documented) at patient's floor/unit and/or counseling patient: Coding Level of Care Code 02316 Subseq Hosp Care Lvl 2 Diagnoses Pneumonia due to COVID-19 virus U07.1; J12.89 Hypernatremia E87.0 Acute UTI N39.0 Acute kidney injury superimposed on CKD N17.9; N18.9 Agitated R45.1 Dementia F03.91 Dementia behavioral disturbance: with behavioral disturbance Dementia type: unspecified type Diabetes E11.9 Elevated troponin I level R77.8 DVT prophylaxis Z29.9 (1) Dementia Dementia behavioral disturbance: with behavioral disturbance Dementia type: unspecified type Qualified Code(s): F03.91 - Unspecified dementia with behavioral disturbance
[2020-05-10] MEDS: QUEtiapine FUMARATE 25 MG TABLET PO SCH (21:06)
[2020-05-10] MEDS: dexAMETHasone 6 MG in SYRINGE 0 ML IV SCH (22:34)
[2020-05-10] MEDS ORDERED: SODIUM CHLORIDE 0.9% 1000ML 250 ML IV ONE (22:54)
[2020-05-11] MEDS: HALOPERIDOL LACTATE 5 MG/ML 1 ML VIAL IM PRN (00:13)
[2020-05-11] MEDS ORDERED: INSULIN GLARGINE SOLOSTAR 100 UNITS/ML 3 ML PEN SC SCH (09:00)
[2020-05-11] MEDS: LORazepam 0.5 MG TAB PO SCH (09:15)
[2020-05-11] MEDS: NYSTATIN/TRIAMCIN CR 15 GM TUBE EXT SCH ×2 (09:15→21:45)
[2020-05-11] MEDS: DOCUSATE SODIUM 100 MG CAP PO SCH (09:15)
[2020-05-11] MEDS: INSULIN ASPART 100 UNITS/ML 3 ML PEN SC SCH ×4 (09:17→21:44)
--- NOTE | 2020-05-11 12:41 | Hospitalist Progress Note ---
Date of Service May 11, 2020 Assessment & Plan (1) Pneumonia due to COVID-19 virus: Pneumonia due to COVID-19 virus with hypoxia. Pulse ox recorded as a low of 90% on room air; on 3L NC on admission. - Decadron 6 mg IV QAM (End date: 05/08/2020) - Finished remdesivir (End date: 05/04/2020) - titrated down to room air for a few days, no distress or increased work of breathing downgraded to medical bed palliative care consult 05/07, move forward with hospice originally going home with hospice, now will go with SNF, working on placement but doubt it will happen this weekend medication list edited today, removed all non essential medications, focus on comfort, keeping her calm (2) Hypernatremia: was treated appropriately with D5W and brought down to 139 when last checked no need for labs as she is trending toward palliative care fluids stopped likely with worsening hypernatremia and rising Cr due to lact of intake (3) Acute UTI: UA positive on admission. Culture grew ibarra-sensitive E. coli. - Ceftriaxone 1 g IV daily - finish 7-day course on 05/06/2020 no fever, vitals stable, adequately treated (4) Acute kidney injury superimposed on CKD: Creatinine 1.5 upon admission. Baseline Cr ~0.9, CKD stage III. - Follow Cr, it is down to 0.88 05/08 no further labs assume Cr is rising due to no oral intake for days (5) Agitated: Acute metabolic encephalopathy from Covid and UTI, superimposed on dementia. - Reorient as able. Treat above. - Continue quetiapine if she will take it will give haldol IM 5mg q6 PRN not eating or drinking, terminal condition unclear how long COVID delirium can last palliative care is consulted, planning on hospice care at SNF (6) Dementia: See above (7) Diabetes: Glucose 450 upon admission. A1c was 7.4% in 2019. - Glycemic consult - Repeat A1c was 8.7%. no need for blood sugars if she won't allow them checked (8) Elevated troponin I level: Troponin was 0.068 upon admission. Likely demand ischemia. - Continue ASA (9) DVT prophylaxis: stopped, no need to cause discomfort with Subcutaneous injections Admission and Anticipated Discharge Date Admission Date: April 29, 2020 Subjective patient uncoopertive won't take medications, stopped them last night here waiting for placement, palliative care Review of Systems Review of Systems: Unobtainable due to cognitive status Physical Exam Constitutional: well developed, + frail appearing and + lethargic; no acute distress Neck: trachea midline, no thyromegaly Respiratory: normal respiratory effort, lungs clear to auscultation Cardiovascular: RRR, no murmur, no edema Gastrointestinal (Abdomen): normal bowel sounds, soft, nontender, no hepatosplenomegaly Musculoskeletal: Head/Neck/Chest: normocephalic, head atraumatic and neck supple Extremities: extremities normal to inspection and + abnormal strength (generalized weakness) Neurologic: awake and + confused; no focal motor deficits Psychiatric: Orientation: + guarded; + not alert, + not oriented to person, + not oriented to place, + not oriented to time and + uncooperative Results & Data Results & Data ([facility]) Vital Signs (Past 12 Hours) Vital Signs Temp Pulse Resp BP Pulse Ox 05/11/20 08:04 36.7 C 103 H 28 H 154/81 H 93 05/11/20 03:19 91 Medications Administered Current Inpatient Medications Acetaminophen (Acetaminophen 500 Mg Tab) 1,000 mg PO Q8 PRN PRN Reason: pain Stop: 05/29/20 23:00 Last Admin: 05/08/20 09:08 Dose: 1,000 mg Documented by: Dextrose (Dextrose 50% 50 Ml Syringe) 25 - 50 ml IV UD PRN; Protocol PRN Reason: Hypoglycemia Protocol Stop: 05/29/20 19:59 Docusate Sodium (Docusate Sodium 100 Mg Cap) [facility] Stop: 05/30/20 08:59 Last Admin: 05/11/20 09:15 Dose: Not Given Documented by: Glucagon (Glucagon For Inj 1 Mg Vial) 1 mg IM UD PRN; Protocol PRN Reason: Hypoglycemia Protocol Stop: 05/29/20 19:59 Glucose (Glucose 40% Gel 15 Gm Tube) 15 - 30 gm PO UD PRN; Protocol PRN Reason: Hypoglycemia Protocol Stop: 05/29/20 19:59 Glucose (Glucose 10 Tabs/Tube) 4 - 8 tabs PO UD PRN; Protocol PRN Reason: Hypoglycemia Protocol Stop: 05/29/20 19:59 Haloperidol Lactate (Haloperidol Lactate 5 Mg/Ml 1 Ml Vial) 5 mg IM Q6H PRN PRN Reason: Anxiety/Agitation Stop: 06/07/20 16:07 Last Admin: 05/11/20 00:13 Dose: 5 mg Documented by: Insulin Aspart (Insulin Aspart 100 Units/Ml 3 Ml Pen) 0 units SC ACHS [facility] Stop: 06/09/20 16:29 Last Admin: 05/11/20 09:17 Dose: 2 units Documented by: Insulin Glargine (Insulin Glargine Solostar 100 Units/Ml 3 Ml Pen) 10 units SC QAM [facility] Stop: 06/10/20 08:59 Last Admin: 05/11/20 09:16 Dose: 10 units Documented by: Lorazepam (Lorazepam 0.5 Mg Tab) 0.5 mg PO QAM [facility] Stop: 05/30/20 08:59 Last Admin: 05/11/20 09:15 Dose: Not Given Documented by: Miscellaneous (Carbohydrates For Hypoglycemia ) 15 - 30 gm PO PRN PRN PRN Reason: Hypoglycemia Treatment Stop: 05/29/20 19:59 Miscellaneous Information (Pharmacy Glycemic Mgmt Consult) 1 ea N/A UD PRN PRN Reason: Consult Stop: 05/29/20 23:54 Nystatin/Triamcinolone Acetonide (Nystatin/Triamcin Cr 15 Gm Tube) 1 appln EXT BID [facility] Stop: 05/30/20 08:59 Last Admin: 05/11/20 09:15 Dose: 1 appln Documented by: Ondansetron HCl (Ondansetron Inj 2 Mg/Ml 2 Ml Vial) 4 mg IV Q6H PRN PRN Reason: Nausea Stop: 05/29/20 23:00 Quetiapine Fumarate (Quetiapine Fumarate 25 Mg Tablet) 50 mg PO HS [facility] Stop: 05/30/20 20:59 Last Admin: 05/10/20 21:06 Dose: Not Given Documented by: PG Care Time/CCT Total # of Minutes Spent Total Time Spent with Patient: Total time spent is greater than 50% in coordination of care (as documented) at patient's floor/unit and/or counseling patient: Coding Level of Care Code 10222 Subseq Hosp Care Lvl 2 Diagnoses Pneumonia due to COVID-19 virus U07.1; J12.89 Hypernatremia E87.0 Acute UTI N39.0 Acute kidney injury superimposed on CKD N17.9; N18.9 Agitated R45.1 Dementia F03.91 Dementia behavioral disturbance: with behavioral disturbance Dementia type: unspecified type Diabetes E11.9 Elevated troponin I level R77.8 DVT prophylaxis Z29.9 (1) Dementia Dementia behavioral disturbance: with behavioral disturbance Dementia type: unspecified type Qualified Code(s): F03.91 - Unspecified dementia with behavioral disturbance
--- NOTE | 2020-05-11 14:22 | Pharmacy Report ---
Pharmacy Glycemic Short Note 2 - Date of Service May 11, 2020 - Glycemic Short BSG Results (Last 24 hours): 05/10/20 05/10/20 05/11/20 16:58 20:39 08:25 POC Glucose 138 H 124 H 184 H 05/11/20 12:10 POC Glucose 228 H OUTPATIENT ANTIDIABETIC REGIMEN: * NPH 18 units SQ qam, 12 units SQ qpm * A1C: 7.4% 03/01/19 ASSESSMENT: 05/10: * Excellent glycemic control yesterday; pt received only 1 unit of insulin (compared to 15 units on 05/09). * BSGs have been elevated thus far today despite no oral intake. Potentially due to lack of basal insulin (none given on 05/10)? * resume basal insulin * tighten correction factor - no need to change carb ratio per pt no eating * will make conservative changes based on patient age, comfort care status and 05/08/20: * BSGs have been relatively well-controlled following the switch to the q4h Novolog scale yesterday. * Fasting BSG was below goal this morning, so Lantus scale was reduced. 05/07: * BSGs did rise with the addition of dextrose containing IVFs yesterday. BSGs did peak at 254 in the afternoon then trended down overnight. These fluids continue at the same rate this AM. Per discussion w/ RN today, still no NG in place. * "Fasting" BSG 162 this AM w/ 16 units Lantus on board but also w/ dextrose containing IVFs running * Will utilize a Q 4 hr scaled dose of Novolog to better cover the carbs delivered in IVFs. This regimen will provide a portion of the "basal" needs and may be more effective for maintaining glycemic control while IVF's running and will add an element of safety should the fluids be cut abruptly w/o impr zulema PO intake. 05/05: * Patient received total of 21 units of insulin yesterday, of which 12 were basal insulin * BSGs trending up overnight - likely due to dextrose fluids ordered (1 liter x 1) * Fasting BSG this AM elevated at 241 mg/dL - will give small dose of Lantus to help with coverage. Fluids stopped this morning - plan to resume this afternoon - will continue with basal scale for HS * Goals of care discussed with patient, plan for no NG tube but okay to continue with IV fluids. Palliative care to help with goals of care PLAN FOR INPATIENT GLYCEMIC CONTROL: * Hold outpatient oral diabetes medications * Basal insulin - increase * Lantus 10 units SQ this morning * Lantus per scale at HS: - 0 units for BSG of 200 mg/dL or less - 5 units for BSG greater than 200 mg/dL * Bolus insulin - tighten CF * NovoLog SQ ACHS * Correction factor: tighten to 20 mg/dL/unit * Carb ratio: 1 unit for every 9 grams of CHO PLAN FOR DISCHARGE: * Home insulin regimen will likely need decreased at time of discharge due to poor oral intake. * Doses to be determined at time of discharge
[2020-05-11] MEDS: INSULIN GLARGINE SOLOSTAR 100 UNITS/ML 3 ML PEN SC SCH (21:43)
[2020-05-11] MEDS: QUEtiapine FUMARATE 25 MG TABLET PO SCH (21:45)
[2020-05-12] MEDS: NYSTATIN/TRIAMCIN CR 15 GM TUBE EXT SCH ×2 (07:19→20:55)
[2020-05-12] MEDS ORDERED: INSULIN GLARGINE SOLOSTAR 100 UNITS/ML 3 ML PEN SC SCH (09:00)
[2020-05-12] MEDS: LORazepam 0.5 MG TAB PO SCH (09:11)
[2020-05-12] MEDS: DOCUSATE SODIUM 100 MG CAP PO SCH (09:17)
[2020-05-12] MEDS: INSULIN ASPART 100 UNITS/ML 3 ML PEN SC SCH ×4 (09:19→22:11)
--- NOTE | 2020-05-12 15:15 | Hospitalist Progress Note ---
Date of Service May 12, 2020 Assessment & Plan (1) Pneumonia due to COVID-19 virus: Pneumonia due to COVID-19 virus with hypoxia. Pulse ox recorded as a low of 90% on room air; on 3L NC on admission. - Decadron 6 mg IV QAM (End date: 05/08/2020) - Finished remdesivir (End date: 05/04/2020) - titrated down to room air for a few days, no distress or increased work of breathing downgraded to medical bed palliative care consult 05/07, move forward with hospice originally going home with hospice, now will go with SNF with Hospice, awaiting bed removed all non essential medications, focus on comfort, keeping her calm-doing well with comfort (2) Hypernatremia: was treated appropriately with D5W and brought down to 139 when last checked no need for labs as she is trending toward palliative care fluids stopped likely with worsening hypernatremia and rising Cr due to lact of intake (3) Acute UTI: UA positive on admission. Culture grew ibarra-sensitive E. coli. - Ceftriaxone 1 g IV daily - finish 7-day course on 05/06/2020 no fever, vitals stable, adequately treated (4) Acute kidney injury superimposed on CKD: Creatinine 1.5 upon admission. Baseline Cr ~0.9, CKD stage III. - Follow Cr, it is down to 0.88 05/08 no further labs assume Cr is rising due to no oral intake for days (5) Agitated: Acute metabolic encephalopathy from Covid and UTI, superimposed on dementia. - Reorient as able. Treat above. - Continue quetiapine if she will take it will give haldol IM 5mg q6 PRN not eating or drinking, terminal condition unclear how long COVID delirium can last palliative care is consulted, planning on hospice care at SNF (6) Dementia: See above (7) Diabetes: Glucose 450 upon admission. A1c was 7.4% in 2019. - Glycemic consult - Repeat A1c was 8.7%. no need for blood sugars if she won't allow them checked (8) Elevated troponin I level: Troponin was 0.068 upon admission. Likely demand ischemia. discontinued ASA (9) DVT prophylaxis: stopped, no need to cause discomfort with Subcutaneous injections Dispo-awaiting SNF bed for Hospice, discussed care with CM Admission and Anticipated Discharge Date Admission Date: April 29, 2020 Subjective Pt took ativan this AM and has been sleeping all day. I attempted to wak eher up with gentle tactile and loud verbal stimulus with no response. But she is breathing and is comfrtoable Review of Systems Review of Systems: Unobtainable due to reduced consciousness Physical Exam Constitutional: WD/WN, vitals as above Neck: trachea midline, no thyromegaly Respiratory: normal respiratory effort, lungs clear to auscultation Cardiovascular: RRR, no murmur, no edema Chest (Breasts): Chest: normal inspection of chest Gastrointestinal (Abdomen): normal bowel sounds, soft, nontender, no hepatosplenomegaly Musculoskeletal: Extremities: extremities normal to inspection; no cyanosis and no clubbing Skin: no rashes, warm and dry Lymphatic: no lymphedema Results & Data Results & Data ([place]) Vital Signs (Past 12 Hours) Vital Signs Temp Pulse Resp BP Pulse Ox Pulse Ox 05/12/20 07:36 36.7 C 97 H 16 138/77 95 05/12/20 07:10 95 PG Care Time/CCT Total # of Minutes Spent Total Time Spent with Patient: Total time spent is greater than 50% in coordination of care (as documented) at patient's floor/unit and/or counseling patient: Coding Level of Care Code 67562 Subseq Hosp Care Lvl 1 Diagnoses Pneumonia due to COVID-19 virus U07.1; J12.89 Hypernatremia E87.0 Acute UTI N39.0 Acute kidney injury superimposed on CKD N17.9; N18.9 Agitated R45.1 Dementia F03.91 Dementia behavioral disturbance: with behavioral disturbance Dementia type: unspecified type Diabetes E11.9 Elevated troponin I level R77.8 DVT prophylaxis Z29.9 (1) Dementia Dementia behavioral disturbance: with behavioral disturbance Dementia type: unspecified type Qualified Code(s): F03.91 - Unspecified dementia with behavioral disturbance
[2020-05-12] MEDS: QUEtiapine FUMARATE 25 MG TABLET PO SCH (20:58)
[2020-05-12] MEDS: INSULIN GLARGINE SOLOSTAR 100 UNITS/ML 3 ML PEN SC SCH (22:12)
[2020-05-13] MEDS: INSULIN GLARGINE SOLOSTAR 100 UNITS/ML 3 ML PEN SC SCH (08:37)
[2020-05-13] MEDS: INSULIN ASPART 100 UNITS/ML 3 ML PEN SC SCH ×4 (08:37→20:50)
[2020-05-13] MEDS: LORazepam 0.5 MG TAB PO SCH (08:44)
[2020-05-13] MEDS: DOCUSATE SODIUM 100 MG CAP PO SCH (08:44)
[2020-05-13] MEDS: NYSTATIN/TRIAMCIN CR 15 GM TUBE EXT SCH ×2 (08:45→20:50)
--- NOTE | 2020-05-13 10:44 | Pharmacy Report ---
Pharmacy Glycemic Short Note 2 - Date of Service May 13, 2020 - Glycemic Short BSG Results (Last 24 hours): 05/12/20 05/12/20 05/12/20 12:17 17:13 20:53 POC Glucose 189 H 153 H 121 H 05/13/20 08:08 POC Glucose 154 H OUTPATIENT ANTIDIABETIC REGIMEN: * NPH 18 units SQ qam, 12 units SQ qpm * A1C: 7.4% 03/01/19 ASSESSMENT: 05/13: * BSGs yesterday of 180, 189, 153, and 121 mg/dL * Patient received 12 units of Lantus and 6 units of Novolog * Fasting BSG of 154 mg/dL this morning * Trending down, but still elevated - will increase Lantus to 15 units daily 05/10: * Excellent glycemic control yesterday; pt received only 1 unit of insulin (compared to 15 units on 05/09). * BSGs have been elevated thus far today despite no oral intake. Potentially due to lack of basal insulin (none given on 05/10)? * resume basal insulin * tighten correction factor - no need to change carb ratio per pt no eating * will make conservative changes based on patient age, comfort care status and 05/05: * Patient received total of 21 units of insulin yesterday, of which 12 were basal insulin * BSGs trending up overnight - likely due to dextrose fluids ordered (1 liter x 1) * Fasting BSG this AM elevated at 241 mg/dL - will give small dose of Lantus to help with coverage. Fluids stopped this morning - plan to resume this afternoon - will continue with basal scale for HS * Goals of care discussed with patient, plan for no NG tube but okay to continue with IV fluids. Palliative care to help with goals of care PLAN FOR INPATIENT GLYCEMIC CONTROL: * Hold outpatient oral diabetes medications * Basal insulin - increase * Lantus 15 units SQ qAM * Bolus insulin - continue * NovoLog SQ ACHS * Correction factor: tighten to 20 mg/dL/unit * Carb ratio: 1 unit for every 9 grams of CHO PLAN FOR DISCHARGE: * Home insulin regimen will likely need decreased at time of discharge due to poor oral intake. * May also need to consider switching to long-acting basal instead of NPH if appetite is not improved * At this point - Lantus 15 units SQ daily is a reasonable dose at discharge * Will continue to follow and adjust recommendation accordingly
--- NOTE | 2020-05-13 14:23 | Palliative Care Progress Note ---
Date of Service May 13, 2020 Assessment & Plan (1) Palliative care encounter: I did see the patient in room 315. She opened her eyes for me, but did not answer any questions or follow commands. Lengthy conversations have been held with Abiodun over the past few days regarding his capability of caring for his mother at home. Unfortunately, he has decided that he would like to pursue SNF placement with hospice services. We are awaiting placement at this time. In seeing the patient, she is stable for discharge and not requiring symptom management. I did call Abiodun at ([phone]), he was clear regarding no artificial nutrition, including NGT or PEG tube. I did complete a POLST form with him over the phone indicating DNR/DNI, Comfort Measures only, Trial abx and no artificial nutrition/hydration. For now, continue current meds and care. Palliative care will follow peripherally. Please contact us should she start to have any symptom management needs. For (2) Pneumonia due to COVID-19 virus: (3) Confusion: (4) Agitation: Admission and Anticipated Discharge Date Admission Date: April 29, 2020 Subjective Pt lying in her bed, not following commands. She did open her eyes. Review of Systems Review of Systems: Unobtainable due to reduced consciousness Physical Exam Physical Exam: deferred due to covid - 19 and patient not able to interact due to severe dementia. Constitutional: + ill appearing and + frail appearing Respiratory: normal respiratory effort, lungs clear to auscultation normal respiratory effort and + cough Auscultation: + diminished lung sounds and + rhonchi Cardiovascular: Rate/Rhythm: regular rate and regular rhythm Heart Sounds: normal S1 and normal S2; no murmur Extremities: normal capillary refill; no edema Gastrointestinal (Abdomen): normal bowel sounds, soft, nontender, no hepatosplenomegaly Skin: normal turgor and + pallor Psychiatric: Orientation: alert and + guarded; + not oriented to person, + not oriented to place and + not oriented to time Insight: + impaired insight Judgement: + impaired judgement Genitourinary: indwelling kat catheter Lymphatic: no cervical or axillary lymphadenopathy Results & [facility]) Vital Signs (Past 12 Hours) Vital Signs Temp Pulse Resp BP Pulse Ox 05/13/20 07:42 36.4 C L 107 H 22 157/95 H 95 PG Care Time/CCT Total # of Minutes Spent Total Time Spent with Patient: Total time spent is greater than 50% in coordination of care (as documented) at patient's floor/unit and/or counseling patient: 35 Coding Level of Care Code 91869 Subseq Hosp Care Lvl 3 Diagnoses Palliative care encounter Z51.5 Pneumonia due to COVID-19 virus U07.1; J12.89 Confusion R41.0 Agitation R45.1 Time Spent (min) 35 Time Spent Midlevel Total time spent 35 minutes with > 50% of that time spent assessing the patient, discussing goals of care and collaborating with family and IDT
--- NOTE | 2020-05-13 16:52 | Hospitalist Progress Note ---
Date of Service May 13, 2020 Assessment & Plan (1) Pneumonia due to COVID-19 virus: Pneumonia due to COVID-19 virus with hypoxia. Pulse ox recorded as a low of 90% on room air; on 3L NC on admission. - Decadron 6 mg IV QAM (End date: 05/08/2020) - Finished remdesivir (End date: 05/04/2020) - titrated down to room air for a few days, no distress or increased work of breathing downgraded to medical bed palliative care consult 05/07, move forward with hospice originally going home with hospice, now will go with SNF with Hospice, awaiting bed removed all non essential medications, focus on comfort, keeping her calm-doing well with comfort (2) Hypernatremia: was treated appropriately with D5W and brought down to 139 when last checked no need for labs as she is trending toward palliative care fluids stopped likely with worsening hypernatremia and rising Cr due to lact of intake (3) Acute UTI: UA positive on admission. Culture grew ibarra-sensitive E. coli. - Ceftriaxone 1 g IV daily - finish 7-day course on 05/06/2020 no fever, vitals stable, adequately treated (4) Acute kidney injury superimposed on CKD: Creatinine 1.5 upon admission. Baseline Cr ~0.9, CKD stage III. - Follow Cr, it is down to 0.88 05/08 no further labs assume Cr is rising due to no oral intake for days, although is eating and drinking little bit today and urine output is 275 mL for the day shift Bojorquez catheter remains in place (5) Agitated: Acute metabolic encephalopathy from Covid and UTI, superimposed on dementia. - Reorient as able. Treat above. - Continue quetiapine if she will take it will give haldol IM 5mg q6 PRN not eating or drinking, terminal condition unclear how long COVID delirium can last palliative care is consulted, planning on hospice care at SNF (6) Dementia: See above (7) Diabetes: Glucose 450 upon admission. A1c was 7.4% in 2019. - Glycemic consult - Repeat A1c was 8.7%. no need for blood sugars if she won't allow them checked (8) Elevated troponin I level: Troponin was 0.068 upon admission. Likely demand ischemia. discontinued ASA (9) DVT prophylaxis: stopped, no need to cause discomfort with Subcutaneous injections Dispo-awaiting SNF bed for Hospice, discussed care with CM Admission and Anticipated Discharge Date Admission Date: April 29, 2020 Subjective Patient apparently did wake up somewhat and eat about a quarter of her meal today for lunch. She was currently getting a bath and moaning when I went to see her but this is the most awake I have seen her yet. She did say no when asked if she had any pain anywhere. When I asked her about talking to her son she said "please do not tell him." She did seem to understand when I told her she was in the hospital, she nodded her head yes. Review of Systems Review of Systems: Unobtainable due to cognitive status Physical Exam Constitutional: WD/WN, vitals as above Eyes: + anicteric sclerae Neck: trachea midline, no thyromegaly Respiratory: normal respiratory effort, lungs clear to auscultation Cardiovascular: RRR, no murmur, no edema Chest (Breasts): Chest: normal inspection of chest Gastrointestinal (Abdomen): normal bowel sounds, soft, nontender, no hepatosplenomegaly Musculoskeletal: Extremities: extremities normal to inspection; no cyanosis and no clubbing Skin: no rashes, warm and dry Psychiatric: Orientation: alert; + not oriented x 3 Lymphatic: no lymphedema Results & Data Results & [facility] ([facility]) Vital Signs (Past 12 Hours) Vital Signs Temp Pulse Resp BP Pulse Ox 05/13/20 15:06 36.7 C 96 H 18 125/77 92 05/13/20 07:42 36.4 C L 107 H 22 157/95 H 95 PG Care Time/CCT Total # of Minutes Spent Total Time Spent with Patient: Total time spent is greater than 50% in coordination of care (as documented) at patient's floor/unit and/or counseling patient: Coding Level of Care Code 25872 Subseq Hosp Care Lvl 1 Diagnoses Pneumonia due to COVID-19 virus U07.1; J12.89 Hypernatremia E87.0 Acute UTI N39.0 Acute kidney injury superimposed on CKD N17.9; N18.9 Agitated R45.1 Dementia F03.91 Dementia behavioral disturbance: with behavioral disturbance Dementia type: unspecified type Diabetes E11.9 Elevated troponin I level R77.8 DVT prophylaxis Z29.9 (1) Dementia Dementia behavioral disturbance: with behavioral disturbance Dementia type: unspecified type Qualified Code(s): F03.91 - Unspecified dementia with behavioral disturbance
[2020-05-13] MEDS: QUEtiapine FUMARATE 25 MG TABLET PO SCH (20:50)
--- NOTE | 2020-05-14 08:23 | Pharmacy Report ---
Pharmacy Glycemic Short Note 2 - Date of Service May 14, 2020 - Glycemic Short BSG Results (Last 24 hours): OUTPATIENT ANTIDIABETIC REGIMEN: * NPH 18 units SQ qam, 12 units SQ qpm * A1C: 7.4% 03/01/19 ASSESSMENT: 05/14: * BSGs yesterday were acceptable: [id number] mg/dL * Patient received 15 units of Lantus and 9 units of Novolog * Fasting BSG this AM was 126 mg/dL - excellent * Fasting continues to trend down but in goal range for the first time today so will continue with 15 units of basal insulin 05/13: * BSGs yesterday of 180, 189, 153, and 121 mg/dL * Patient received 12 units of Lantus and 6 units of Novolog * Fasting BSG of 154 mg/dL this morning * Trending down, but still elevated - will increase Lantus to 15 units daily PLAN FOR INPATIENT GLYCEMIC CONTROL: * Basal insulin - no change * Lantus 15 units SQ qAM * Bolus insulin - no change * NovoLog SQ ACHS * Correction factor: 20 mg/dL/unit * Carb ratio: 1 unit for every 9 grams of CHO PLAN FOR DISCHARGE: * Home insulin regimen will likely need decreased at time of discharge due to poor oral intake. * May also need to consider switching to long-acting basal instead of NPH if appetite is not improved * At this point - Lantus 15 units SQ daily is a reasonable dose at discharge * Will continue to follow and adjust recommendation accordingly
[2020-05-14] MEDS: LORazepam 0.5 MG TAB PO SCH (08:39)
[2020-05-14] MEDS: DOCUSATE SODIUM 100 MG CAP PO SCH (08:40)
[2020-05-14] MEDS: INSULIN ASPART 100 UNITS/ML 3 ML PEN SC SCH ×4 (09:11→21:06)
[2020-05-14] MEDS: INSULIN GLARGINE SOLOSTAR 100 UNITS/ML 3 ML PEN SC SCH (09:12)
[2020-05-14] MEDS: NYSTATIN/TRIAMCIN CR 15 GM TUBE EXT SCH ×2 (09:13→22:20)
--- NOTE | 2020-05-14 19:23 | Hospitalist Progress Note ---
Date of Service May 14, 2020 Assessment & Plan (1) Pneumonia due to COVID-19 virus: Pneumonia due to COVID-19 virus with hypoxia. Pulse ox recorded as a low of 90% on room air; on 3L NC on admission. - Decadron 6 mg IV QAM (End date: 05/08/2020) - Finished remdesivir (End date: 05/04/2020) - titrated down to room air for a few days, no distress or increased work of breathing downgraded to medical bed palliative care consult 05/07, move forward with hospice originally going home with hospice, now will go with SNF with Hospice, awaiting bed removed all non essential medications, focus on comfort, keeping her calm-doing well with comfort (2) Hypernatremia: was treated appropriately with D5W and brought down to 139 when last checked no need for labs as she is trending toward palliative care fluids stopped likely with worsening hypernatremia and rising Cr due to lact of intake (3) Acute UTI: UA positive on admission. Culture grew ibarra-sensitive E. coli. - Ceftriaxone 1 g IV daily - finish 7-day course on 05/06/2020 no fever, vitals stable, adequately treated (4) Acute kidney injury superimposed on CKD: Creatinine 1.5 upon admission. Baseline Cr ~0.9, CKD stage III. - Follow Cr, it is down to 0.88 05/08 no further labs assume Cr is rising due to no oral intake for days, although is eating and drinking intermittently, but making minimal urine Bojorquez catheter remains in place (5) Agitated: Acute metabolic encephalopathy from Covid and UTI, superimposed on dementia. Seems improved now - Reorient as able. Treat above. - Continue quetiapine if she will take it will give haldol IM 5mg q6 PRN not eating or drinking, terminal condition unclear how long COVID delirium can last palliative care is consulted, planning on hospice care at SNF (6) Dementia: See above (7) Diabetes: Glucose 450 upon admission. A1c was 7.4% in 2019. - Glycemic consult - Repeat A1c was 8.7%. now improved control on Lantus and Novolog (8) Elevated troponin I level: Troponin was 0.068 upon admission. Likely demand ischemia. discontinued ASA for comfort (9) DVT prophylaxis: stopped, no need to cause discomfort with Subcutaneous injections Dispo-awaiting SNF bed for Hospice, discussed care with CM again today, awaiting placement Admission and Anticipated Discharge Date Admission Date: April 29, 2020 Subjective Resting comfortably, did not wake up to verbal and gentle tactile stimulus Review of Systems Review of Systems: Unobtainable due to reduced consciousness Physical Exam Constitutional: WD/WN, vitals as above Neck: trachea midline, no thyromegaly Respiratory: normal respiratory effort, lungs clear to auscultation Cardiovascular: RRR, no murmur, no edema Chest (Breasts): Chest: normal inspection of chest Gastrointestinal (Abdomen): normal bowel sounds, soft, nontender, no hepatosplenomegaly Musculoskeletal: Extremities: extremities normal to inspection; no cyanosis and no clubbing Skin: no rashes, warm and dry Genitourinary: Bojorquez in place with minimal urine output Results & Data Results & Data ([facility]) Vital Signs (Past 12 Hours) Vital Signs Temp Pulse Resp BP Pulse Ox 05/14/20 15:51 36.8 C 67 16 94/61 L 92 05/14/20 07:28 36.9 C 76 20 147/85 H 92 PG Care Time/CCT Total # of Minutes Spent Total Time Spent with Patient: Total time spent is greater than 50% in coordination of care (as documented) at patient's floor/unit and/or counseling patient: Coding Level of Care Code 46507 Subseq Hosp Care Lvl 1 Diagnoses Pneumonia due to COVID-19 virus U07.1; J12.89 Hypernatremia E87.0 Acute UTI N39.0 Acute kidney injury superimposed on CKD N17.9; N18.9 Agitated R45.1 Dementia F03.91 Dementia behavioral disturbance: with behavioral disturbance Dementia type: unspecified type Diabetes E11.9 Elevated troponin I level R77.8 DVT prophylaxis Z29.9 (1) Dementia Dementia behavioral disturbance: with behavioral disturbance Dementia type: unspecified type Qualified Code(s): F03.91 - Unspecified dementia with behavioral disturbance
[2020-05-14] MEDS: QUEtiapine FUMARATE 25 MG TABLET PO SCH (22:24)
[2020-05-15] MEDS: DOCUSATE SODIUM 100 MG CAP PO SCH (08:34)
[2020-05-15] MEDS ORDERED: INSULIN GLARGINE SOLOSTAR 100 UNITS/ML 3 ML PEN SC SCH (09:00)
[2020-05-15] MEDS: INSULIN ASPART 100 UNITS/ML 3 ML PEN SC SCH ×4 (09:44→21:58)
[2020-05-15] MEDS: LORazepam 0.5 MG TAB PO SCH (09:45)
[2020-05-15] MEDS: NYSTATIN/TRIAMCIN CR 15 GM TUBE EXT SCH ×2 (09:46→21:58)
--- NOTE | 2020-05-15 15:44 | Hospitalist Progress Note ---
Date of Service May 15, 2020 Assessment & Plan (1) Pneumonia due to COVID-19 virus: Pneumonia due to COVID-19 virus with hypoxia. Pulse ox recorded as a low of 90% on room air; on 3L NC on admission. - Decadron 6 mg IV QAM (End date: 05/08/2020) - Finished remdesivir (End date: 05/04/2020) - titrated down to room air for a few days, no distress or increased work of breathing downgraded to medical bed palliative care consult 05/07, move forward with hospice originally going home with hospice, now will go with SNF with Hospice, awaiting bed removed all non essential medications, focus on comfort, keeping her calm-doing well with comfort (2) Hypernatremia: was treated appropriately with D5W and brought down to 139 when last checked no need for labs as she is trending toward palliative care fluids stopped likely with worsening hypernatremia and rising Cr due to lack of adequate po intake (3) Acute UTI: UA positive on admission. Culture grew ibarra-sensitive E. coli. - Ceftriaxone 1 g IV daily - finish 7-day course on 05/06/2020 no fever, vitals stable, adequately treated (4) Acute kidney injury superimposed on CKD: Creatinine 1.5 upon admission. Baseline Cr ~0.9, CKD stage III. - Follow Cr, it is down to 0.88 05/08 no further labs assume Cr is rising due to no oral intake for days, although is eating and drinking intermittently, but making minimal urine Bojorquez catheter remains in place (5) Agitated: Acute metabolic encephalopathy from Covid and UTI, superimposed on dementia. Seems improved now - Reorient as able. Treat above. - Continue quetiapine if she will take it will give haldol IM 5mg q6 PRN not eating or drinking much at all, terminal condition unclear how long COVID delirium can last palliative care is consulted, planning on hospice care at SNF (6) Dementia: See above (7) Diabetes: Glucose 450 upon admission. A1c was 7.4% in 2019. - Glycemic consult - Repeat A1c was 8.7%. now improved control on Lantus and Novolog (8) Elevated troponin I level: Troponin was 0.068 upon admission. Likely demand ischemia. discontinued ASA for comfort (9) DVT prophylaxis: stopped, no need to cause discomfort with Subcutaneous injections Dispo-awaiting SNF bed for Hospice, discussed care with CM again today, awaiting placement Admission and Anticipated Discharge Date Admission Date: April 29, 2020 Subjective Pt comfortable, actually wake and answered a few simple questions. Denies pain, says she is eating a little bit. Asked if she wants a blanket and she says "well that's up to you." Review of Systems Review of Systems: Unobtainable due to cognitive status Physical Exam Constitutional: WD/WN, vitals as above Eyes: + anicteric sclerae Neck: trachea midline, no thyromegaly Respiratory: normal respiratory effort Musculoskeletal: Extremities: extremities normal to inspection; no cyanosis and no clubbing Skin: no rashes, warm and dry Psychiatric: Orientation: alert; + not oriented x 3 Genitourinary: Bojorquez in place Results & Data Results & Data ([facility]) Vital Signs (Past 12 Hours) Vital Signs Temp Pulse Resp BP Pulse Ox 05/15/20 07:46 36.5 C 73 16 143/83 H 96 PG Care Time/CCT Total # of Minutes Spent Total Time Spent with Patient: Total time spent is greater than 50% in coordination of care (as documented) at patient's floor/unit and/or counseling patient: Coding Level of Care Code 04903 Subseq Hosp Care Lvl 1 Diagnoses Pneumonia due to COVID-19 virus U07.1; J12.89 Hypernatremia E87.0 Acute UTI N39.0 Acute kidney injury superimposed on CKD N17.9; N18.9 Agitated R45.1 Dementia F03.91 Dementia behavioral disturbance: with behavioral disturbance Dementia type: unspecified type Diabetes E11.9 Elevated troponin I level R77.8 DVT prophylaxis Z29.9 (1) Dementia Dementia behavioral disturbance: with behavioral disturbance Dementia type: unspecified type Qualified Code(s): F03.91 - Unspecified dementia with behavioral disturbance
[2020-05-15] MEDS: QUEtiapine FUMARATE 25 MG TABLET PO SCH (21:58)
[2020-05-15] MEDS ORDERED: GLYCOPYRROLATE 0.2 MG/ML VIAL IV PRN (23:51)
[2020-05-15] MEDS ORDERED: LORazepam 0.5 MG TAB PO PRN (23:51)
[2020-05-15] MEDS ORDERED: ONDANSETRON 4 MG OD TAB SL PRN (23:51)
[2020-05-15] MEDS ORDERED: ONDANSETRON INJ 2 MG/ML 2 ML VIAL IV PRN (23:51)
[2020-05-15] MEDS ORDERED: MoRPHine SULFATE 5 MG/0.25 ML UDP PO PRN (23:51)
[2020-05-15] MEDS ORDERED: ATROPINE SULFATE 1% OP SOLN 2 ML BTL SL PRN (23:51)
[2020-05-16] MEDS ORDERED: ATROPINE SULFATE 1% OP SOLN 5 ML BTL SL PRN (00:06)
--- NOTE | 2020-05-16 00:22 | Communication Note ---
Date of Service: May 16, 2020 I called and discussed Ms. Wheeler' care with her son Abiodun, because she was becoming more hypotensive and appeared clinically worse to her nurse. Abiodun says at this point he is in favor of holding all medications, not placing another IV in patient and making her comfort care with oxygen and managing symptoms and understood this may lead to her imminent demise. This was relayed to patient's nurse and comfort care orders placed.
[2020-05-16] MEDS: DOCUSATE SODIUM 100 MG CAP PO SCH (08:43)
[2020-05-16] MEDS: NYSTATIN/TRIAMCIN CR 15 GM TUBE EXT SCH ×2 (10:19→22:00)
--- NOTE | 2020-05-16 14:11 | Hospitalist Progress Note ---
Date of Service May 16, 2020 Assessment & Plan (1) Pneumonia due to COVID-19 virus: Pneumonia due to COVID-19 virus with hypoxia. Pulse ox recorded as a low of 90% on room air; on 3L NC on admission. - Decadron 6 mg IV QAM (End date: 05/08/2020) - Finished remdesivir (End date: 05/04/2020) Remains on room air for many days palliative care consult 05/07, move forward with hospice originally going home with hospice, now will go to [place] with Hospice, awaiting bed removed all non essential medications, focus on comfort, keeping her calm-doing well with comfort (2) Hypernatremia: was treated appropriately with D5W and brought down to 139 when last checked no need for labs as she is trending toward palliative care fluids stopped likely with worsening hypernatremia and rising Cr due to lack of adequate po intake (3) Acute UTI: UA positive on admission. Culture grew ibarra-sensitive E. coli. - Ceftriaxone 1 g IV daily - finish 7-day course on 05/06/2020 no fever, vitals stable, adequately treated (4) Acute kidney injury superimposed on CKD: Creatinine 1.5 upon admission. Baseline Cr ~0.9, CKD stage III. - Follow Cr, it is down to 0.88 05/08 no further labs assume Cr is rising due to no oral intake for days, although is eating and drinking intermittently, but making minimal urine Bojorquez catheter remains in place (5) Agitated: Acute metabolic encephalopathy from Covid and UTI, superimposed on dementia. Seems improved now - Reorient as able. Treat above. - Continue quetiapine if she will take it not eating or drinking much, terminal condition palliative care is consulted, planning on hospice care at SNF (6) Dementia: See above (7) Diabetes: Glucose 450 upon admission. A1c was 7.4% in 2019. - Glycemic consult - Repeat A1c was 8.7%. now improved control on Lantus and Novolog which have now been discontinued for comfort (8) Elevated troponin I level: Troponin was 0.068 upon admission. Likely demand ischemia. discontinued ASA for comfort (9) DVT prophylaxis: stopped, no need to cause discomfort with Subcutaneous injections Dispo-Has been accepted at [facility] bed for Hospice, discussed care with CM again today, awaiting son to work out financials of placement with [facility] as it will be private pay She is not likely to pass away in the next 7 days it seems as she is making urine, awake and alert and eating/drinking some of her meals during the daytime DNR/DNI Admission and Anticipated Discharge Date Admission Date: April 29, 2020 Subjective Pt was hypotensive last night and overnight MD called son and made her [employer] officially. Today she is eating some of her lunch and drank almost a whole can of chase kalyani I held uup to her mouth with a straw. I told her we were working on getting her out of the hospital and she said "when?" Otherwise did not say anything but nodded head "no" when asked if she had pain Called son and left a message with the update Review of Systems Review of Systems: Unobtainable due to cognitive status Physical Exam Constitutional: WD/WN, vitals as above Eyes: + anicteric sclerae Neck: trachea midline, no thyromegaly Respiratory: normal respiratory effort, lungs clear to auscultation normal respiratory effort Cardiovascular: RRR, no murmur, no edema Chest (Breasts): Chest: normal inspection of chest Gastrointestinal (Abdomen): normal bowel sounds, soft, nontender, no hepatosplenomegaly Musculoskeletal: Extremities: extremities normal to inspection; no cyanosis and no clubbing Skin: no rashes, warm and dry Psychiatric: Orientation: alert; + not oriented x 3 Lymphatic: no lymphedema PG Care Time/CCT Total # of Minutes Spent Total Time Spent with Patient: Total time spent is greater than 50% in coordination of care (as documented) at patient's floor/unit and/or counseling patient: Coding Level of Care Code 44451 Subseq Hosp Care Lvl 1 Diagnoses Pneumonia due to COVID-19 virus U07.1; J12.89 Hypernatremia E87.0 Acute UTI N39.0 Acute kidney injury superimposed on CKD N17.9; N18.9 Agitated R45.1 Dementia F03.91 Dementia behavioral disturbance: with behavioral disturbance Dementia type: unspecified type Diabetes E11.9 Elevated troponin I level R77.8 DVT prophylaxis Z29.9 (1) Dementia Dementia behavioral disturbance: with behavioral disturbance Dementia type: unspecified type Qualified Code(s): F03.91 - Unspecified dementia with behavioral disturbance
[2020-05-16] MEDS: QUEtiapine FUMARATE 25 MG TABLET PO SCH ×2 (22:00)
[2020-05-17] MEDS: DOCUSATE SODIUM 100 MG CAP PO SCH (08:34)
[2020-05-17] MEDS: NYSTATIN/TRIAMCIN CR 15 GM TUBE EXT SCH ×2 (08:34→20:07)
[2020-05-17] MEDS: QUEtiapine FUMARATE 25 MG TABLET PO SCH (20:03)
--- NOTE | 2020-05-17 20:50 | Hospitalist Progress Note ---
Date of Service May 17, 2020 Assessment & Plan (1) Pneumonia due to COVID-19 virus: Pneumonia due to COVID-19 virus with hypoxia. Pulse ox recorded as a low of 90% on room air; on 3L NC on admission. - Decadron 6 mg IV QAM (End date: 05/08/2020) - Finished remdesivir (End date: 05/04/2020) Remains on room air for many days palliative care consult 05/07, move forward with hospice originally going home with hospice, now will go to [place] with Hospice, awaiting bed removed all non essential medications, focus on comfort, keeping her calm-doing well with comfort (2) Hypernatremia: was treated appropriately with D5W and brought down to 139 when last checked no need for labs as she is trending toward palliative care fluids stopped but she is drinking on her own when offered to do so likely with worsening hypernatremia and rising Cr due to lack of adequate po intake (3) Acute UTI: UA positive on admission. Culture grew ibarra-sensitive E. coli. - Ceftriaxone 1 g IV daily - finish 7-day course on 05/06/2020 no fever, vitals stable, adequately treated (4) Acute kidney injury superimposed on CKD: Creatinine 1.5 upon admission. Baseline Cr ~0.9, CKD stage III. - Follow Cr, it is down to 0.88 05/08 no further labs assume Cr is rising due to no oral intake for days, although is eating and drinking intermittently, but making minimal urine Bojorquez catheter remains in place (5) Agitated: Acute metabolic encephalopathy from Covid and UTI, superimposed on dementia. No problems in many days - Reorient as able. Treat above. - Continue quetiapine if she will take it not eating or drinking much, terminal condition palliative care is consulted, planning on hospice care at SNF (6) Dementia: See above (7) Diabetes: Glucose 450 upon admission. A1c was 7.4% in 2019. - Glycemic consult - Repeat A1c was 8.7%. now improved control on Lantus and Novolog which have now been discontinued for comfort (8) Elevated troponin I level: Troponin was 0.068 upon admission. Likely demand ischemia. discontinued ASA for comfort (9) DVT prophylaxis: stopped, no need to cause discomfort with Subcutaneous injections Dispo-Has been accepted at [facility] for Hospice, but family cannot afford to pay privately. New plan now is to go home with hospice on Thursday She is not likely to pass away in the next 7 days it seems as she is making urine, awake and alert and eating/drinking some of her meals during the daytime DNR/DNI Admission and Anticipated Discharge Date Admission Date: April 29, 2020 Subjective Patient pleasant today, able to give short answers. 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 Denies chest pain or shortness of breath, denies pain. She was thirsty and I brought her water to her and she held it herself and drink about 100 mL of water right in front of me no problems with aspiration. Review of Systems Review of Systems: All systems reviewed & are unremarkable except as noted in HPI & below Physical Exam Constitutional: WD/WN, vitals as above Eyes: + anicteric sclerae Neck: trachea midline, no thyromegaly Respiratory: normal respiratory effort Musculoskeletal: Extremities: extremities normal to inspection; no cyanosis and no clubbing Skin: no rashes, warm and dry Psychiatric: Orientation: alert; + not oriented x 3 Lymphatic: no lymphedema PG Care Time/CCT Total # of Minutes Spent Total Time Spent with Patient: Total time spent is greater than 50% in coordination of care (as documented) at patient's floor/unit and/or counseling patient: Coding Level of Care Code 16323 Subseq Hosp Care Lvl 1 Diagnoses Pneumonia due to COVID-19 virus U07.1; J12.89 Hypernatremia E87.0 Acute UTI N39.0 Acute kidney injury superimposed on CKD N17.9; N18.9 Agitated R45.1 Dementia F03.91 Dementia behavioral disturbance: with behavioral disturbance Dementia type: unspecified type Diabetes E11.9 Elevated troponin I level R77.8 DVT prophylaxis Z29.9 (1) Dementia Dementia behavioral disturbance: with behavioral disturbance Dementia type: unspecified type Qualified Code(s): F03.91 - Unspecified dementia with behavioral disturbance
[2020-05-18] MEDS: DOCUSATE SODIUM 100 MG CAP PO SCH (08:36)
[2020-05-18] MEDS: NYSTATIN/TRIAMCIN CR 15 GM TUBE EXT SCH ×2 (08:36→20:52)
--- NOTE | 2020-05-18 15:36 | Hospitalist Progress Note ---
Date of Service May 18, 2020 Assessment & Plan (1) Pneumonia due to COVID-19 virus: Pneumonia due to COVID-19 virus with hypoxia. Pulse ox recorded as a low of 90% on room air; on 3L NC on admission. - Decadron 6 mg IV QAM (End date: 05/08/2020) - Finished remdesivir (End date: 05/04/2020) Remains on room air for many days palliative care consult 05/07, move forward with hospice originally going home with hospice, then son decided for [facility], but he could not afford it -He will now bring her home with hospice which has been arranged on Friday 05/19 removed all non essential medications, focus on comfort, keeping her calm-doing well with comfort (2) Hypernatremia: was treated appropriately with D5W and brought down to 139 when last checked no need for labs as she is on comfort care fluids stopped but she is drinking on her own when offered to do so likely with worsening hypernatremia and rising Cr due to lack of adequate po intake (3) Acute UTI: UA positive on admission. Culture grew ibarra-sensitive E. coli. - Ceftriaxone 1 g IV daily - finished 7-day course on 05/06/2020 (4) Acute kidney injury superimposed on CKD: Creatinine 1.5 upon admission. Baseline Cr ~0.9, CKD stage III. - Follow Cr, it is down to 0.88 05/08 no further labs Bojorquez catheter remains in place (5) Agitated: Acute metabolic encephalopathy from Covid and UTI, superimposed on dementia. No problems in many days - Reorient as able. Treat above. - Continue quetiapine if she will take it not eating or drinking much, terminal condition palliative care is consulted, planning on hospice care at SNF (6) Dementia: See above Advanced (7) Diabetes: Glucose 450 upon admission. A1c was 7.4% in 2019. - Glycemic consult - Repeat A1c was 8.7%. Had improved control on Lantus and Novolog which have now been discontinued for comfort (8) Elevated troponin I level: Troponin was 0.068 upon admission. Likely demand ischemia. discontinued ASA for comfort (9) DVT prophylaxis: stopped, no need to cause discomfort with Subcutaneous injections Dispo-Has been accepted at [facility] for Hospice, but family cannot afford to pay privately. New plan now is to go home with hospice on Thursday She is not likely to pass away in the next 7 days it seems as she is making urine, awake and alert and eating/drinking some of her meals during the daytime DNR/DNI Admission and Anticipated Discharge Date Admission Date: April 29, 2020 Subjective Patient awake and alert, answer some questions. When I told her she was going home tomorrow, she said "okay good." Denies pain. Review of Systems Review of Systems: Unobtainable due to cognitive status Physical Exam Constitutional: WD/WN, vitals as above Eyes: + anicteric sclerae Neck: trachea midline, no thyromegaly Respiratory: normal respiratory effort, lungs clear to auscultation normal respiratory effort Cardiovascular: RRR, no murmur, no edema Chest (Breasts): Chest: normal inspection of chest Gastrointestinal (Abdomen): normal bowel sounds, soft, nontender, no hepatosplenomegaly Musculoskeletal: Extremities: extremities normal to inspection; no cyanosis and no clubbing Skin: no rashes, warm and dry Psychiatric: Orientation: alert; + not oriented x 3 Lymphatic: no lymphedema PG Care Time/CCT Total # of Minutes Spent Total Time Spent with Patient: Total time spent is greater than 50% in coordination of care (as documented) at patient's floor/unit and/or counseling patient: Coding Level of Care Code 30999 Subseq Hosp Care Lvl 1 Diagnoses Pneumonia due to COVID-19 virus U07.1; J12.89 Hypernatremia E87.0 Acute UTI N39.0 Acute kidney injury superimposed on CKD N17.9; N18.9 Agitated R45.1 Dementia F03.91 Dementia behavioral disturbance: with behavioral disturbance Dementia type: unspecified type Diabetes E11.9 Elevated troponin I level R77.8 DVT prophylaxis Z29.9 (1) Dementia Dementia behavioral disturbance: with behavioral disturbance Dementia type: unspecified type Qualified Code(s): F03.91 - Unspecified dementia with behavioral disturbance
[2020-05-18] MEDS: QUEtiapine FUMARATE 25 MG TABLET PO SCH (20:51)
[2020-05-19] MEDS: NYSTATIN/TRIAMCIN CR 15 GM TUBE EXT SCH (08:15)
[2020-05-19] MEDS: DOCUSATE SODIUM 100 MG CAP PO SCH (08:16)
--- NOTE | 2020-05-19 13:40 | Discharge Summary ---
Date of Service May 19, 2020 Admission HPI Per Admitting Provider The patient is an 84-year-old female with a past medical history including cellulitis, T11 vertebral close fracture, ventral hernia, osteoporosis, anxiety, GERD, acute kidney injury superimposed on chronic kidney disease, facial contusion, acute cholecystitis, type 2 diabetes mellitus with diabetic neuropathy, diabetic retinopathy, insulin requiring or dependent type 2 diabetes mellitus, and dementia. The patient was brought to the emergency department by her son, and upon arrival to emergency department the patient continually screamed, and was difficult for anyone to touch her. The son reports that the patient is not been eating or drinking over the past 2 days and last evening he could not get her out of her chair. She was also noted when at home and being approached by family members that she would just scream. The patient's family notes that her urine smells strong, and is concerned about a urinary tract infection. Principal Diagnosis COVID-19 Pneumonia, UTI Discharge Exam Constitutional WD/WN, vitals as above Eyes + anicteric sclerae ENMT Ears: no hearing impairment Neck trachea midline, no thyromegaly Respiratory normal respiratory effort Chest (Breasts) Chest: normal inspection of chest Musculoskeletal Extremities: extremities normal to inspection; no cyanosis and no clubbing Skin no rashes, warm and dry Psychiatric Orientation: alert; + not oriented x 3 Lymphatic no lymphedema Discharge Data Allergies Allergy/AdvReac Type Severity Reaction Status Date / Time No Known Allergies Allergy Unknown Verified 04/29/20 18:20 Consultations 04/29/20 19:43 ED Decision to Admit Stat 04/29/20 23:01 Consult Case Management - Discharge Planning Routine 05/04/20 14:38 Consult Palliative Care Routine Ordered Studies 04/29/20 17:29 CT head/brain wo con Stat CXR Hospital Course (1) Pneumonia due to COVID-19 virus: Pneumonia due to COVID-19 virus with hypoxia. Pulse ox recorded as a low of 90% on room air; on 3L NC on admission. - Decadron 6 mg IV QAM (End date: 05/08/2020) - Finished remdesivir (End date: 05/04/2020) Remains on room air for over a week prior to discharge palliative care consult 05/07, move forward with hospice originally going home with hospice, then son decided for her to go to [place] with H ospice, but he could not afford it -He will now bring her home with hospice which has been arranged on Friday 05/19 removed all non essential medications, focus on comfort, keeping her calm-doing well with comfort (2) Hypernatremia: was treated appropriately with D5W and brought down to 139 when last checked no need for labs as she is on comfort care fluids stopped but she is drinking on her own when offered to do so likely with worsening hypernatremia and rising Cr due to lack of adequate po intake (3) Acute UTI: UA positive on admission. Culture grew ibarra-sensitive E. coli. - Ceftriaxone 1 g IV daily - finished 7-day course on 05/06/2020 (4) Acute kidney injury superimposed on CKD: Creatinine 1.5 upon admission. Baseline Cr ~0.9, CKD stage III. - Follow Cr, it is down to 0.88 05/08 no further labs Bojorquez catheter remains in place and can go home with this (5) Agitated: Acute metabolic encephalopathy from Covid and UTI, superimposed on dementia. No problems in many days but was a little more agitated and yelling out on day of discharge-ativan given - Reorient as able. Treat above. - Continue quetiapine if she will take it not eating or drinking much, terminal condition palliative care is consulted, planning on hospice care at SNF (6) Dementia: See above Advanced (7) Diabetes: Glucose 450 upon admission. A1c was 7.4% in 2019. - Glycemic consult - Repeat A1c was 8.7%. Had improved control on Lantus and Novolog which have now been discontinued for comfort (8) Elevated troponin I level: Troponin was 0.068 upon admission. Likely demand ischemia. discontinued ASA for comfort (9) DVT prophylaxis: stopped, no need to cause discomfort with Subcutaneous injections Dispo- home with hospice today She is not likely to pass away in the next 7 days it seems as she is making urine, awake and alert and eating/drinking some of her meals during the daytime DNR/DNI Total Time Total Time Spent Total Time Spent (In Minutes): 35 min Total Time Includes: Examination of the Patient, Discharge Planning and Medication Reconciliation Discharge Plan Discharge Items Patient Disposition: Hospice - Home Reason For Visit: PNEUMONIA DUE TO COVID-19, UTI, SEPSIS Discharge Diagnosis: COVID-19 Pneumonia, Failure to thrive Condition on Discharge: Fair Activity: As commented below Bathing: No limitations Exercise/Sports: As tolerated Non-emergency contact: Primary Care Provider Call non-emergency contact if: you have any medication questions and your symptoms worsen Follow-up/Referrals: Jair Wren III, MD [Primary Care Provider] - (Follow up within 1 week with Home Hospice ) Diet: Regular Diet Texture: Mechanical soft (ground) Diet Comment: Minced and moist diet Addtl Attending Provider Instructions: You were admitted with COVID-19 Pneumonia and dehydration, urinary tract infection. Because of your advanced dementia and illness, you have chosen to go home with home hospice. You can take lorazepam as needed for anxiety or agitation. You have not required any medication for pain. You do not need to take any of your usual medications and you do not need to check your blood sugar or give yourself insulin for comfort. Pending Studies at Discharge: No Stand-Alone Forms: My [facility] Medications and DC Order Prescriptions: New lorazepam 0.5 mg Tablet 0.5 mg PO Q4H PRN (Reason: anxiety) Qty: 15 RF: 0 Continued omeprazole 20 mg capsule,delayed release(DR/EC) 20 mg PO QAM Qty: 90 RF: 3 quetiapine 50 mg tablet 50 mg PO HS Qty: 30 RF: 11 nystatin-triamcinolone 100,000-0.1 unit/g-% cream 1 applic TOP BID Qty: 30 RF: 1 acetaminophen 500 mg tablet 1,000 mg PO Q8 PRN (Reason: pain) RF: 0 (DME) walker misc See Rx Instructions .ROUTE .MEDSUPPLY Qty: 1 RF: 0 sennosides 8.6 mg Capsule 8.6 mg PO DAILY RF: 0 docusate sodium 100 mg capsule 100 mg PO QAM RF: 0 Discontinued (DME) OneTouch Ultra Blue Test Strip Strip See Rx Instructions .ROUTE .MEDSUPPLY Qty: 400 RF: 1 Novolin 70/30 U-100 Insulin 100 unit/mL (70-30) suspension 1 sliding scale dose SUBCUT USEASDIRECTD Qty: 40 RF: 3 (DME) insulin syringe-needle U-100 [BD Insulin Syringe Ultra-Fine] 0.3 mL 31 gauge x 5/16" syringe See Rx Instructions .ROUTE .MEDSUPPLY Qty: 200 RF: 3 lorazepam 0.5 mg tablet 0.5 mg PO QAM Qty: 30 RF: 0 aspirin 81 mg Tablet,Delayed Release (Dr/Ec) 81 mg PO QAM RF: 0 Stress Formula with Zinc Tablet 1 tab PO HS RF: 0 cholecalciferol (vitamin D3) 1,000 unit capsule 2,000 units PO QAM RF: 0 calcium carbonate [Calcium 600] 600 mg calcium (1,500 mg) Tablet 600 mg PO QAM RF: 0 Discharge Orders: Discharge Order (Routine); Ordered 05/19/20 Ordered By: Fidelina Brandon Admission Data Admit Date/Time: 04/29/20 21:39 Attending Provider: Fidelina Brandon Admit Provider: Dorian Barker Primary Care Provider: Jair Wren III Other Providers: Eris Calabrese ; Dorian Barker ; Esperanza Jay ; [facility] ; [facility], [facility] Level of Care Code D/C Day Management >30 mins Diagnoses Pneumonia due to COVID-19 virus U07.1; J12.89 Hypernatremia E87.0 Acute UTI N39.0 Acute kidney injury superimposed on CKD N17.9; N18.9 Agitated R45.1 Dementia F03.91 Dementia behavioral disturbance: with behavioral disturbance Dementia type: unspecified type Diabetes E11.9 Elevated troponin I level R77.8 DVT prophylaxis Z29.9
--- NOTE | 2020-05-23 14:16 | Coding Query ---
To promote full compliance with coding requirements relating to patient care, provider participation is requested in all cases of sequencing machine operator uncertainty. Please assist us with the question(s) below: Coding Question(s): The diagnosis below was documented in the H&P, then subsequently fell off all further documentation. Please indicate if it is still a possible diagnosis or ruled out. Physician's Response(s): LIKELY TYPE 2 CT ( x ) Diagnosed and POA ( ) Diagnosed and not POA ( ) Ruled out ( ) Other (please specify) MTDD
== END 2020-05-19 15:10 | disposition hospice, home (50) | DRG 177 ==
LOC: ED 16:42 → SUATTDRO 21:39 → 2E 21:39 → 3E 05-06 11:18